=== PATIENT | female | born 1935 | race Caucasian/White ===

== ENCOUNTER 2017-08-20 14:22 | Emergency (ER) | payer MEDICARE, MEDICAID ==
[~2017-08-20] VITALS: Ht 154.9 cm; Wt 57.6 kg
[~2017-08-20 14:22] MED LIST: ASPIRIN 81MG TA81 MG PO; AUGMENTIN 875-1 EACH PO; CALCIUM 600600 MG PO; CIPRO 500MG TA500 MG PO; FLAGYL500 M1 PO; FUROSEMIDE 20MG20 MG PO; IPRATROPIUM BROM3 M1 IH; LEVOTHYROXINE0.1 M1 PO; OMEPRAZOLE20 MG PO; POTASSIUM CHLO10 ME4 PO; PREDNISONE 10MG10 MG PO; PROAIR HFA0.09 MG/AC IH; SENEXON-S1 TAB PO
--- NOTE | 2017-08-20 14:52 | Emergency Room Report ---
History of Present Illness Time Seen by MD Oquendo Presenting Problem in Triage Pt arrived:Walked Presenting Problem:PT C/O ABD CRAMPING THAT HAS BEEN GOING ON FOR A WHILE SINCE DX WITH DIVERTICULITIS. 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 N Clinical Suspician of Infection? N Mental Status: 1 - Regular (Normal Baseline) Sepsis Risk:Possible Sepsis Risk Have you (or family members/close friends) recently traveled outside the [place]? N If Yes, where/when: Have you had exposure to infectious disease within the past month? N TB? Other? Specify: Patient with hx GERD, states has a little bilious emesis each night when she lies down; has seen her GENERATING STATION MECHANIC at Dr. Velasquez and Dr. Blanco' office for this. Also has hx diverticulitis, and now in ED c/o cramping abdominal pain worse w/ ingestion of food; ate applesauce GOLF CART MECHANIC and kept it down but had cramping. No fever. Has lost about five or ten pounds recently due to cramping, per her daughter. No blood from above or below. No chest pain. No acute SOB. uses oxygen. ALLERGIES Coded Allergies: No Known Allergies (01/18/17) Home Medications Active Scripts Amoxicillin/Potassium Clav (Augmentin 875-125 Tablet) 1 EACH PO BID #14 TAB Prov: 05/10/17 Reported Medications Omeprazole (Omeprazole 20MG) 20 MG PO DAILY #30 CAP Potassium Chloride 10 MEQ PO DAILY #30 TAB SENNOSIDES/DOCUSATE SODIUM (Senexon-S Tablet) 1 TAB PO DAILY Furosemide (Furosemide) 20 MG PO BID ASPIRIN (Aspirin) 81 MG PO QHS ALBUTEROL-IPRATROPIUM (Iprat-Albut 0.5-3(2.5) MG/3 Ml) 3 ML IH Q4 Albuterol Sulfate (Proair Hfa) 1 PUFF IH Q6HP PRN COPD Prednisone (Prednisone 10MG) 10 MG PO BID Levothyroxine Sodium (Levothyroxine 0.1MG) 0.1 MG PO DAILY #30 History Medical History General CAD? No Angina: No NC: No Hypertension? No Hyperlipidemia? No CHF? No DVT? No PE? No COPD? Yes Asthma? No Anemia? No GERD? No Gastric ulcers? No GI Bleed? No Hernia? No Thyroid Problems? Yes Hypothyroidism? No CVA? No Seizures? No Diabetes? No Renal Insuffiency? No End Stage Renal Disease? No UTI? No Stones? No BPH? No GB Disease: No Nephritic Syndrome? No Asplenia? No Hepatitis? No Sickle Cell Disease? No Arthritis? Yes Migraines? No Cataracts? No Glaucoma? No MRSA? No HIV? No TB? No Anxiety? No Depression? No Cancer? Yes Site: CERVICAL More? Yes Additional hx: DIVERTICULITIS Immunization Hx DT/Tetanus Has Never Had Pneumonia Received In Past Surgical Hx Previous Surgery?Y HYSTERECTOMY CANCER CATARACTS Family History Family Hx Diabetes Yes CAD No Hypertension Yes Hyperlipidemia No Cancer Yes TB No Social History Smoking Hx Smoker: Former Smoker Tobacco: Yes Type Cigarettes Alcohol Alcohol: No Review of Systems All Other Systems Reviewed and Negative Constitutional see HPI Respiratory denies see HPI Gastrointestinal see HPI (last BM was this morning;dry) Physical Exam Vital Signs Vital Signs Date Time Temp Pulse Resp B/P Pulse O2 O2 Flow FiO2 Ox Delivery Rate 08/20 1556 90 22 132/77 95 4 08/20 1426 98.6 93 22 139/65 95 4 General Appearance normal appearance, WD/WN, no apparent distress Eye Exam - bilateral eye normal exam, bilateral eye PERRL, bilateral eye EOMI Neck normal inspection, non-tender, supple, full range of motion Respiratory Status Yes: trachea midline, chest symmetrical, non tender chest. No: respiratory distress, tender on palpation, use of accessory muscles, pain on inspiration, pain on expiration, productive cough, non productive cough. Lung Sounds bilateral: normal breath sounds, lungs clear, decreased breath sounds (on oxygen ). Cardiovascular normal exam, regular rate/rhythm, no peripheral edema, no gallop, no JVD, no murmur, no rub, normal peripheral pulses Gastrointestinal normal bowel sounds, normal exam, non tender, soft, no organomegaly, no pulsatile mass, no guarding, no rebound Extremities normal inspection, no calf tenderness Strength 5 Upper Ext (L), 5 Upper Ext (R), 5 Lower Ext (L), 5 Lower Ext (R) Neurologic alert, normal exam, no motor/sensory deficits, oriented x 3 ( ambulatory ;clear speech) Glascow Coma Scale Glascow Coma Scale Response Value EYE response: 4 Spontaneously 4 MOTOR response: 6 OBEYS 6 VERBAL response: 5 Oriented & Converses 5 Total 15 Skin intact, pallor Medical Decision Making LABS/Meds/Orders Pt receiving controlled substance in ED? No Results/Orders Laboratory Tests 08/20/17 1620: Urine Color YELLOW, Urine Appearance CLEAR, Urine pH 6.0, Ur Specific [place] 1.010, Urine Protein NEGATIVE, Urine Ketones NEGATIVE, Urine Blood 1+ H, Urine Nitrate NEGATIVE, Urine Bilirubin NEGATIVE, Urine Urobilinogen 0.2, Ur Leukocyte Esterase NEGATIVE, Urine Glucose NEGATIVE 08/20/17 1550: Sodium 137, Potassium 4.1, Chloride 101, Carbon Dioxide 32, BUN 16, Creatinine 0.9, Estimated Creat Clear 45 L, Estimated GFR (MDRD) 60, Glucose 121 H, Calcium 9.3, Total Bilirubin 0.2, AST 12 L, ALT 14, Alkaline Phosphatase 83, Total Protein 7.6, Albumin 3.2 L, Globulin 4.4 H, Albumin/Globulin Ratio 0.7 L, Lipase 69 L, WBC 11.3 H, RBC 4.18 L, Hgb 11.1 L, Hct 36.1 L, MCV 86.5, RDW 15.2, Plt Count 289, MPV 7.7, Gran % 86.8 H, Gran # 9.8 H, Total Counted Pending, Lymphocytes % 8.4 L, Monocytes % 4.0, Eosinophils % 0.6, Basophils % 0.2, Neutrophils Pending, Lymphocytes (Manual) Pending, Lymphocytes # 1.0, Monocytes # 0.5, Eosinophils # 0.1, Basophils # 0.0, Platelet Estimate Pending, PUBS MCHC 30.7 L, MCH 26.6 L Current Medication Orders Sig/Remington Start time Last Medication Dose Route Stop Time Status Admin Sodium Chloride 10 ML PRN PRN 08/20 1600 AC IV 08/21 1556 Dicyclomine HCl 0 .STK-MED ONE 08/20 1450 DC PO Dicyclomine HCl 10 MG ONCE ONE 08/20 1445 DC 08/20 PO 08/20 144 1516 Orders Procedure Date/time Status DIET-NOTHING BY MOUTH 08/20 D Active IV SALINE LOCK 08/20 1556 Active DIFFERENTIAL-WBC 08/[address] ABD/PELVIS REQ 08/20 1428 Complete URINALYSIS/COMPLETE 08/20 1428 Complete LIPASE 08/20 1428 Complete CBC WITH AUTO DIFF 08/20 142 Active CHEM 12 PROFILE 08/20 1428 Complete XRAY/CT/US XRAY/CT/US CT abdomen, pelvis CT interpretation by reviewed by me (report reviewed) Time results known: 160 CT Results abnormal, uncomplicated diverticulitis; distended gall bladder Departure Departure Time of Disposition 1700 Disposition DC Home or Self Care(routine) Clinical Impression Primary Impression: Diverticulitis large intestine Qualifiers: Diverticulitis bleeding: without bleeding Diverticulitis complication: without perforation or abscess Qualified Code: K57.32 - Diverticulitis of large intestine without perforation or abscess without bleeding Condition STABLE Referrals Francis SÁNCHEZ,Khurram (Family) Patient Instructions Diverticulitis Additional Instructions Your gall bladder is big and needs to be checked by your family practitioner when you can fast first and get an ultrasound outpatient. Rx Cipro and Bentyl. See Delores in one to two days. Discharge Counseling Counseled pt/family regarding diagnosis, test results, medications/RX, home care, follow up needs Prescriptions Current Visit Scripts DICYCLOMINE HCL (Bentyl) 10 MG PO Q8HP PRN cramping #6 CAP CIPROFLOXACIN HCL (Cipro 250MG TAB) 250 MG PO BID #14 TAB ED Critical Care Critical Care No at 1700
--- NOTE | 2017-08-20 15:48 | RADIOLOGY REPORT PS360 ---
CT ABD PELVIS W/O CONTRAST CLINICAL INDICATION: Epigastric pain with diffuse abdominal pain EPIGASTRIC PAIN, DIFFUSE ABD PAIN ORDERING PHYSICIAN: Ani Montero MD PATIENT AGE: 82 years COMPARISON: 05/18/2017 TECHNIQUE: Axial images obtained with sagittal and coronal reformats. PROCEDURE: Oral Contrast: None IV Contrast: None . FINDINGS: There are chronic changes in the lung bases with centrilobular emphysematous change. There are coronary artery calcifications The gallbladder is distended measuring up to 8.5 x 4.5 cm. The spleen, adrenal glands, and pancreas are unremarkable. There is a small hiatal hernia.. No renal calculi or hydronephrosis and no evidence of obstruction, free air, or appendicitis. There is diverticulosis of the descending and sigmoid colon with diffuse thickening of the junction of the descending and sigmoid colon in the left lower quadrant with stranding of the pericolic fat consistent with acute diverticulitis somewhat similar to the previous exam. No evidence of abscess or perforation. There has been prior hysterectomy. Small sclerotic focus is present in the acetabular roof on the right unchanged IMPRESSION: 1. Acute noncomplicated diverticulitis at the junction of the descending and sigmoid colon similar to 05/18/2017 2. Distended gallbladder
[2017-08-20 16:08] LABS: HEMOGLOBIN 11.1 g/dL (12.2-16.2); LYMPH % 8.4 % (10-50.0)
[2017-08-20] MEDS ORDERED: CIPRO 250MG TA250 MG PO (16:08)
[2017-08-20] MEDS ORDERED: BENTYL10 M1 PO (16:08)
[2017-08-20 16:37] LABS: URINE BILIRUBIN - DIPSTICK NEGATIVE (NEG); URINE BLOOD 1+ (NEG)
[2017-08-20 17:02] LABS: NEUTROPHILS 88 % (42-76)
[2017-08-20 17:11] VITALS: BP 130/88
== END 2017-08-20 17:12 | disposition home or self-care (01) ==
LOC: ER 14:22
PROVIDERS: Emergency Medicine
DX: K57.32 Diverticulitis of large intestine without perforation or abscess without bleeding (principal); J44.9 Chronic obstructive pulmonary disease, unspecified; Z87.891 Personal history of nicotine dependence; Z85.41 Personal history of malignant neoplasm of cervix uteri; Z79.82 Long term (current) use of aspirin; Z79.52 Long term (current) use of systemic steroids; Z79.899 Other long term (current) drug therapy

== ENCOUNTER 2017-08-26 08:49 | Emergency (ER) | payer MEDICARE, MEDICAID ==
[~2017-08-26] VITALS: Ht 154.9 cm; Wt 57.6 kg
[~2017-08-26 08:49] MED LIST changes: +BENTYL10 M1 PO; +CIPRO 250MG TA250 MG PO
--- NOTE | 2017-08-26 09:09 | Emergency Room Report ---
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 N Clinical Suspician of Infection? N Mental Status: 1 - Regular (Normal Baseline) Sepsis Risk:Low Sepsis Risk Have you (or family members/close friends) recently traveled outside the [place]? N If Yes, where/when: Have you had exposure to infectious disease within the past month? N TB? Other? Specify: Patient out of her inhaler for the past five days; unable to refill it despite refill from her SOFTWARE TOOLS ENGINEER. Has oxygen dependent COPD. Arrives wheezing and SOB. Also was in ED six days ago with chronically cramping abdominal pain, which was relieved with Bentyl. Rx Cipro for uncomplicated diverticulitis. CT scan showed distended GB but had taken PO prior to ED visit so referred to PCP for follow up. She has an appointment a half hour from now and states she has not had anything to eat or drink today. She did however move her bowels. No BRBPR. No hematemesis. Drank a little water this AM and kept it down. ALLERGIES Coded Allergies: No Known Allergies (01/18/17) Home Medications Active Scripts DICYCLOMINE HCL (Bentyl) 10 MG PO Q8HP PRN cramping #6 CAP Prov: 08/20/17 CIPROFLOXACIN HCL (Cipro 250MG TAB) 250 MG PO BID #14 TAB Prov: 08/20/17 Amoxicillin/Potassium Clav (Augmentin 875-125 Tablet) 1 EACH PO BID #14 TAB Prov: 05/10/17 Reported Medications Omeprazole (Omeprazole 20MG) 20 MG PO DAILY #30 CAP Potassium Chloride 10 MEQ PO DAILY #30 TAB SENNOSIDES/DOCUSATE SODIUM (Senexon-S Tablet) 1 TAB PO DAILY Furosemide (Furosemide) 20 MG PO BID ASPIRIN (Aspirin) 81 MG PO QHS ALBUTEROL-IPRATROPIUM (Iprat-Albut 0.5-3(2.5) MG/3 Ml) 3 ML IH Q4 Albuterol Sulfate (Proair Hfa) 1 PUFF IH Q6HP PRN COPD Prednisone (Prednisone 10MG) 10 MG PO BID Levothyroxine Sodium (Levothyroxine 0.1MG) 0.1 MG PO DAILY #30 History Medical History General CAD? No Angina: No PA: No Hypertension? No Hyperlipidemia? No CHF? No DVT? No PE? No COPD? Yes Asthma? No Anemia? No GERD? No Gastric ulcers? No GI Bleed? No Hernia? No Thyroid Problems? Yes Hypothyroidism? No CVA? No Seizures? No Diabetes? No Renal Insuffiency? No End Stage Renal Disease? No UTI? No Stones? No BPH? No GB Disease: No Nephritic Syndrome? No Asplenia? No Hepatitis? No Sickle Cell Disease? No Arthritis? Yes Migraines? No Cataracts? No Glaucoma? No MRSA? No HIV? No TB? No Anxiety? No Depression? No Cancer? Yes Site: CERVICAL More? Yes Additional hx: DIVERTICULITIS Immunization Hx DT/Tetanus Has Never Had Pneumonia Received In Past Surgical Hx Previous Surgery?Y HYSTERECTOMY CANCER CATARACTS Family History Family Hx Diabetes Yes CAD No Hypertension Yes Hyperlipidemia No Cancer Yes TB No Social History Smoking Hx Smoker: Former Smoker Tobacco: No Alcohol Alcohol: No Review of Systems All Other Systems Reviewed and Negative Respiratory see HPI Gastrointestinal see HPI, constipation, denies diarrhea, denies nausea, denies vomiting Physical Exam Vital Signs Vital Signs Date Time Temp Pulse Resp B/P Pulse O2 O2 Flow FiO2 Ox Delivery Rate 08/26 1031 16 08/26 1014 96 16 141/100 98 4 08/26 0857 98.7 89 16 149/106 98 4 General Appearance normal appearance, WD/WN, no apparent distress Eye Exam - bilateral eye normal exam, bilateral eye PERRL Neck normal inspection, non-tender, supple, full range of motion Respiratory Status Yes: respiratory distress, trachea midline, chest symmetrical, non tender chest. No: tender on palpation, use of accessory muscles, pain on inspiration, pain on expiration, productive cough, non productive cough (mild wheezing L greater than R). Lung Sounds left: wheezing. Cardiovascular normal exam, regular rate/rhythm, no peripheral edema, no gallop, no JVD, no murmur, no rub, normal peripheral pulses Gastrointestinal normal bowel sounds, normal exam, non tender, soft, no organomegaly, no pulsatile mass, no guarding, no rebound Extremities non-tender, normal range of motion, normal inspection, normal capillary refill, no calf tenderness, no pedal edema Strength 4 Upper Ext (L), 4 Upper Ext (R), 4 Lower Ext (L), 4 Lower Ext (R) Neurologic alert, normal exam, no motor/sensory deficits, oriented x 3 (nonfocal ;clear speech notremor) Glascow Coma Scale Glascow Coma Scale Response Value EYE response: 4 Spontaneously 4 MOTOR response: 6 OBEYS 6 Total 10 Skin intact, normal color, warm/dry, pallor Medical Decision Making LABS/Meds/Orders Pt receiving controlled substance in ED? No Results/Orders Laboratory Tests 08/26/17 1014: Urine Color YELLOW, Urine Appearance CLOUDY, Urine pH 6.0, Ur Specific [place] > = 1.030, Urine Protein TRACE H, Urine Ketones TRACE H, Urine Blood 1+ H, Urine Nitrate NEGATIVE, Urine Bilirubin NEGATIVE, Urine Urobilinogen 0.2, Ur Leukocyte Esterase NEGATIVE, Urine RBC 3-5, Urine WBC 5-10, Calcium Oxalate Crystal 1+, Urine Bacteria 4+, Urine Mucus 4+, Urine Glucose NEGATIVE 08/26/17 0910: Lipase 72 L 08/26/17 0910: Lactic Acid 0.8 08/26/17 0910: Sodium 143, Potassium 3.6, Chloride 103, Carbon Dioxide 32, BUN 18, Creatinine 0.9, Estimated Creat Clear 45 L, Estimated GFR (MDRD) 60, Glucose 107 H, Calcium 9.0, Total Bilirubin 0.2, AST 13 L, ALT 14, Alkaline Phosphatase 72, Total Protein 7.2, Albumin 2.9 L, Globulin 4.3 H, Albumin/Globulin Ratio 0.7 L, WBC 9.0, RBC 4.30, Hgb 11.6 L, Hct 37.5, MCV 87.1, RDW 15.2, Plt Count 302, MPV 7.7, Gran % 70.8, Gran # 6.3, Lymphocytes % 19.1, Monocytes % 6.9, Eosinophils % 3.0, Basophils % 0.2, Lymphocytes # 1.7, Monocytes # 0.6, Eosinophils # 0.3, Basophils # 0.0, PUBS MCHC 30.9 L, MCH 26.9 L Current Medication Orders Sig/Remington Start time Last Medication Dose Route Stop Time Status Admin Morphine Sulfate 2 MG ONCE ONE 08/26 1030 DC 08/26 IV 08/26 103 1031 Ondansetron HCl 4 MG ONCE ONE 08/26 1030 DC 08/26 IV 08/26 1031 1031 Morphine Sulfate 0 .STK-MED ONE 08/26 1029 DC .ROUTE Ondansetron HCl 0 .STK-MED ONE 08/26 1029 DC .ROUTE Sodium Chloride 10 ML PRN PRN 08/26 0915 AC IV 08/27 09 Albuterol/Ipratropium 3 ML ONCE ONE 08/26 09 DC 08/26 INH 08/26 901 09 Albuterol/Ipratropium 0 .STK-MED ONE 08/26 0858 DC INH Orders Procedure Date/time Status DIET-NOTHING BY MOUTH 08/26 L Active CULTURE, URINE 08/26 1014 Active URINALYSIS/COMPLETE 08/26 1006 Complete LIPASE 08/26 1006 Complete RT Aerosol Treatment, Provide 08/[address] ABD/PELVIS REQ 08/26 903 Active IV SALINE LOCK 08/26 903 Active CULTURE, BLOOD 08/26 903 Active LACTIC ACID 08/26 903 Complete CBC WITH AUTO DIFF 08/26 903 Complete CHEM 12 PROFILE 08/26 903 Complete US GALLBLADDER (ABD LTD) 08/26 901 Active RT REQUEST DUONEB 08/26 0855 Active XRAY/CT/US XRAY/CT/US XRAY chest XR interpretation by reviewed by me Xray Results abnormal, no acute changes from 05/18; 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 Consult MD Physician Consult Consult/PCP : go to office for refills and samples and he will schedule f/u SOFTWARE TOOLS ENGINEER Time Called 1107 Reason Pt. Condition Progress ED Progress Notes Date 08/26/17 Time 0908 Comment Sats 97 per cent s/p neb tx. Resting comfortably. Departure Departure Time of Disposition 1116 Disposition DC Home or Self Care(routine) Clinical Impression Primary Impression: Constipation Qualifiers: Constipation type: unspecified constipation type Qualified Code: K59.00 - Constipation, unspecified Secondary Impressions: Abdominal pain Qualifiers: Abdominal location: generalized Qualified Code: R10.84 - Generalized abdominal pain Gall bladder disease Mass of right lung Condition STABLE Referrals Jennifer Barber (PCP/Family) Patient Instructions Constipation Additional Instructions Go to Dr. Blanco' office and his staff will have samples and a refill for narcotics; they will set up a follow up appointment to see Rosalind; you will likely need further work up for right lung mass as well as your constipation as radiologist recommended follow up sigmoidoscopy to rule out a mass. Dr. Blanco will also address your constipation. Discharge Counseling Counseled pt/family regarding diagnosis, test results, medications/RX, home care, follow up needs ED Critical Care Critical Care No at 1120
--- OUTSIDE RECORDS SUMMARY | 2017-08-26 09:10 | External Medical Summary Rpt | CCD ---
Author Author , [facility] Organization [facility] Address Unknown Phone Care Team Providers Care Pest Locator Name Role Phone JONAS MCDANIEL Unavailable Unavailable AWOSIKA, AWOSIKA Unavailable Unavailable AWOSIKA, AWOSIKA Unavailable Unavailable SAM, SAM Unavailable Unavailable [facility] GAIL PIERRE BUCK, Unavailable Unavailable GAIL RBOWN, Unavailable Unavailable BACILIO SOMMERS Unavailable Unavailable MONICA TANG, Unavailable Unavailable MONICA OWENS JR, ANNITA Unavailable Unavailable RFIFI JR, ANNITA R GUTTI USH, GUTTI USH Unavailable Unavailable GUTTI, JACLYN R, GUTTI, Unavailable Unavailable JACLYN R ZHANE NICHOLS, Unavailable Unavailable ZHANE PHELAN, Unavailable Unavailable JONAS Gregorio, JONAS PHELAN JASON A, Unavailable Unavailable [facility] Unavailable Unavailable [facility], [facility] BARRINGTON ZAK, BARRINGTON ZAK Unavailable Unavailable [facility], Unavailable Unavailable [facility] PITER LOZADA Unavailable Unavailable [facility], [facility] Unavailable Unavailable [facility], [facility], Unavailable Unavailable [facility] & Unavailable Unavailable [facility] & Unavailable Unavailable [facility] JERRY EDWARDS Unavailable Unavailable [facility] Un[facility]ORY, [facility], Unavailable Unavailable [facility], Unavailable Unavailable [facility] Unavailable Unavailable SERVICES, [facility] Unavailable Unavailable AMBULANCE, [facility] Unavailable Unavailable AMBULANCE, [facility] Unavailable Unavailable [facility]OC[facility]AT, [facility] Unavailable Unavailable HOSPITALIST, [facility] Unavailable Unavailable MEDICAL, [facility] Unavailable Unavailable MEDICAL, [facility] JAVIER FOSS Unavailable Unavailable [facility] Unavailable Unavailable [facility], [facility] Unavailable Unavailable LLC, [facility] PAT, Unavailable Unavailable [facility], PARRISH S, Unavailable Unavailable [facility], PARRISH S PORNOY ROBERT, PORNOY Unavailable Unavailable ROBERT HARRISON PATITO G, Unavailable Unavailable [facility], Unavailable Unavailable [facility] Unavailable Unavailable [facility]AT, [facility] Unavailable Unavailable INC[facility]PORAT, [facility] Unavailable Unavailable SERVICES, [facility] Unavailable Unavailable SERVICES, [facility] COLTON CALLES, Unavailable Unavailable COLTON CALLES ROBERT B, Unavailable Unavailable ESTELA YO [facility] Unavailable Unavailable EMERGENCY PHYS, [facility] MCGUIRE KER, MCGUIRE KER Unavailable Unavailable [facility], Unavailable Unavailable [facility] Unavailable Unavailable #[id number], [facility] #[id number] CHARLES GUTIERREZ, Unavailable Unavailable CHARELS OLIVAS, KYRA Unavailable Unavailable DEISY Purpose Continuity of Care Document - 12-02-2007 through 2016 Problems Code Diagnosis DOS Provider Status J3489 OTHER 04-06-2017 [facility] SPECIFIED PHYSICIAN DISORDERS PRACTICE L NOSE AND NASAL SINUSES Z9981 DEPENDENCE 04-06-2017 [facility] ON PHYSICIAN SUPPLEMENTA PRACTICE L L OXYGEN 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 [facility] SIS UNS W/O REGIONAL THYROTOXIC MEDICAL CRISIS/STOR M W50306 COMBINED 02-09-2017 [facility] FORMS OF REGIONAL AGE-RELATED MEDICAL CATARACT RIGHT EYE H269 UNSPECIFIED 02-09-2017 [facility] CATARACT [facility] MEDICAL J449 CHRONIC 02-09-2017 [facility] OBSTRUCTIVE REGIONAL PULMONARY MEDICAL DISEASE UNS K219 GASTRO-ESOP 02-09-2017 [facility] H REFLUX REGIONAL DISEASE MEDICAL WITHOUT ESOPHAGITIS B07320 DERMATOCHAL 01-26-2017 [facility] ASIS OF UNS REGIONAL EYE UNS MEDICAL EYELID U64181 COMBINED 01-26-2017 [place] [facility] CATARACT LEFT EYE U15804 COMBINED 01-26-2017 [facility] FORMS OF REGIONAL AGE-RELATED MEDICAL CATARACT BILATERAL H538 OTHER 01-26-2017 [facility] VISUAL REGIONAL DISTURBANCE MEDICAL S J00 ACUTE 01-22-2017 [facility] NASOPHARYNG PHYSICIANS ITIS COMMON GROUP COLD J310 CHRONIC 01-22-2017 [facility] RHINITIS PHYSICIANS GROUP J342 DEVIATED 01-22-2017 [facility] NASAL PHYSICIANS SEPTUM GROUP R22828 PERSONAL 01-18-2017 [facility] NICOTINE INC DEPENDENCE [id number] NONEXUDAT 12-16-2016 [facility] AGE-REL MAC DEGEN RUFUS EARLY DRY STAGE J984 OTHER 11-13-2016 [facility] DISORDERS [facility] OF LUNG INC R0989 OTH SPEC SX 11-13-2016 [facility] SIGNS [facility] INVLV THE INC CIRC & RESP SYS R938 ABNORMAL 11-13-2016 [facility] FIND ON DX [facility] IMAGING OTH INC SPEC BODY STRCT R05 COUGH 11-05-2016 [facility] INC R502 DRUG 11-05-2016 [facility] INDUCED [facility] FEVER INC J9610 CHRONIC 12-17-2015 [facility], RESPIRATORY INC FAIL UNS HYPOXIA/HYP ERCAPNIA J9611 CHRONIC 12-14-2015 [facility] FAILURE [facility]ALTH CTR WITH HYPOXIA R5381 OTHER 12-11-2015 [facility] R609 EDEMA 12-11-2015 [facility] UNSPECIFIED N EMERGENCY PHYS Z6825 BODY MASS 12-11-2015 [facility] INDEX BMI REGIONAL 25.0-25.9 MEDICAL ADULT Z7982 DETENTION 12-11-2015 [facility] CURRENT USE REGIONAL OF [place] MEDICAL M52067 PERSONAL 12-11-2015 [facility] HISTORY OF REGIONAL URINARY MEDICAL TRACT INFECTIONS E039 HYPOTHYROID 11-30-2015 [facility]M [facility] UNSPECIFIED HEALTH CTR D229 MELANOCYTIC 11-16-2015 [facility]EVI [facility] UNSPECIFIED HEALTH CTR L8990 PRESSURE 11-16-2015 [facility] UNS FAMILY SITE HEALTH CTR UNSPECIFIED STAGE J441 CHRONIC 10-09-2015 [facility] OBSTRUCTIVE FAMILY PULMONARY HEALTH CTR DZ W/EXACERBAT ION L989 DISORDER 10-05-2015 [facility] & [facility] CTR S TISSUE UNS J9600 ACUTE 08-11-2015 [facility] RESPIRATORY HOSPITALIST FAIL UNS HYPOXIA/HYP ERCAPNIA J9690 RESP FAIL 08-07-2015 [facility] UNS UNS N EMERGENCY WHETHER PHYS W/HYPOXIA/H YPERCAPNIA R0602 SHORTNESS 08-07-2015 [facility] OF BREATH [facility] R079 CHEST PAIN 08-07-2015 [facility] R0902 HYPOXEMIA 08-07-2015 [facility] N EMERGENCY PHYS N390 URINARY 08-04-2015 [facility] TRACT N EMERGENCY INFECTION PHYS SITE NOT SPECIFIED Z720 TOBACCO USE 08-04-2015 [facility] MEDICAL Z8541 PERSONAL 08-04-2015 [facility] MALIGNANT MEDICAL NEOPLASM CERVIX UTERI 5950 ACUTE 08-01-2015 [facility]STITIS [facility] 5990 URINARY 07-29-2015 [facility]FECTION PHYS SITE NOT SPECIFIED 7881 DYSURIA 07-29-2015 [facility] 496 CHRONIC 07-25-2015 [facility] OBSTRUCTION SERVICES NEC 2449 UNSPECIFIED 02-06-2015 [facility] HYPOTHYROID INCORPORAT ISM 2689 UNSPECIFIED 02-06-2015 [facility] VIT[facility] DEFICIENCY INCORPORAT 2724 OTHER AND 02-06-2015 [facility]PEC[facility]IED [facility] INCORPORAT HYPERLIPIDE DAMION 2859 UNSPECIFIED 02-06-2015 [facility]EMIA [facility] INCORPORAT 3899 UNSPECIFIED 02-06-2015 [facility] LOSS INCORPORAT 10015 OBSTRUCTIVE 02-06-2015 [facility] BRONCHITIS INCORPORAT WITHOUT EXACERBAT 16967 UNSPECIFIED 02-06-2015 [facility] DISTURBANCE INCORPORAT 04530 OTHER 02-06-2015 [facility] FATIGUE INCORPORAT 4878 INFLUENZA 10-19-2014 [facility] WITH OTHER PRIMARY MANIFESTATI CARE CENTER ONS 4618 OTHER ACUTE 07-10-2014 [facility] SINUSITIS [facility]IMARY [facility]ARE CENTER V5869 LONG-TERM 07-06-2014 [facility] (CURRENT) PRIMARY USE OF CARE CENTER OTHER MEDICATIONS 04458 OBSTRUCTIVE 05-30-2013 [facility] CHRONIC EMERGENCY BRONCHITIS SERVICES WITH EXACERBATIO N 12401 CHEST PAIN 05-30-2013 [facility]NSPECIFIED [facility]Y [facility]OCIAT 29642 OTHER 05-30-2013 [facility] NONSPECIFIC RADIOLOGY ABNORMAL ASSOCIAT FINDING OF LUNG FIELD 4928 OTHER [facility] 07947 OTHER 05-24-2013 [facility] RESPIRATORY ABNORMALITI ES 7867 ABNORMAL 05-23-2013 [facility]ST [facility] 515 POSTINFLAMM 03-22-2013 [facility] ATORY [facility] PULMONARY ASSOCIAT FIBROSIS 05778 OTHER 03-22-2013 [facility] DISEASES OF RADIOLOGY LUNG NOT ASSOCIAT ELSEWHERE CLASSIFIED 7862 COUGH 03-21-2013 [facility] 4660 ACUTE 10-15-2012 [facility] BRONCHITIS [facility]ARE CENTER 486 PNEUMONIA, 07-14-2012 [facility] ORGANISM REGIONAL UNSPECIFIED MEDICAL 5180 PULMONARY 07-14-2012 [facility] COLL[facility]SE [facility] V0481 NEED 08-04-2011 [facility] PROPHYLACTI PRIMARY C CARE CENTER VACCINATION &INOCULATIO N FLU 2809 UNSPECIFIED 03-04-2011 LABORATORY IRON & DEFICIENCY [facility] ICS 4619 ACUTE 07-19-2010 NEW S[facility]ITIS, [facility] 4779 ALLERGIC 07-19-2010 NEW RHINITIS [facility] UNSPECIFIED 19849 ARTHRALGIA 03-06-2010 [facility] IBULAR JOINT 4659 ACUTE URIS 06-29-2009 [facility] OF PRIMARY UNSPECIFIED CARE SITE CENTERINC 490 BRONCHITIS 04-28-2009 [facility] NOT EMERGENCY SPECIFIED SERVICES ACUTE OR ASSOCIATES CHRONIC 5199 UNSPECIFIED 04-28-2009 [facility] DISEASE OF RADIOLOGY ASSOCIATES RESPIRATORY PSC SYSTEM 29009 PRIMARY LOC 12-20-2008 [facility] PRIMARY OSTEOARTHRO CARE SIS PELVIC CENTERINC REGION&THIG H [address] PAIN IN 12-20-2008 [facility] [place] [facility] P[facility]VIC INC REGION AND THIGH 2720 PURE 12-02-2007 [facility] HYPERCHOLES PRIMARY TEROLEMIA CARE CENTERINC 70258 PNEUMONIA 12-02-2007 [facility] DUE TO PRIMARY UNSPECIFIED CARE CENTERINC STREPTOCOCC [place] 7931 NONSPEC 12-02-2007 [facility] [place] [facility] O[facility] EXAM INC BODY STRUCT LUNG FIELD Immunization Name Date Rout CVX Reac Dose Comm Prov Is Faci e tion ent ider Refu lity Give sed n IIV3 09-1 141 [facility] No NEW 7-20 I NORA VACC 10 [facility] NGTO INE N SPLI CLIN T IC VIRU PSC S 0.5 ML DOSA GE IM USE Results Labs Lab Lab Date Result Refere Interp Status Commen Order Detail nces retati t Range on Urinalysis with microscopy (08-20-2017 16:20) Urine = OCC O complet leukocy 017 wbc/hpf ed sydni 16:20 count (number /volume ) Urine 0.2 0.2 NEG complet urobili 017 L ed nogen 16:20 E.U./dL detecti on by test str Squamou 5-10 0-5 complet s 017 5-10 L ed epithel 16:20 #/hpf ial cells detecti on in u Urine = 1.010 1.005-1 complet specifi 017 .030 ed c 16:20 gravity measure ment Erythro OCC OCC 0 complet cytes 017 L ed detecti 16:20 rbc/hpf on in urine sedimen t Urine = NEG complet protein 017 NEGATIV ed 16:20 E mg/dL measure ment by automat ed t Urine = 6.0 5.0-8.5 complet pH 017 ed 16:20 Urine NEGATIV NEG complet nitrite 017 E ed 16:20 NEGATIV detecti E L on by test strip Mucus 1+ 1+ L OCC complet detecti 017 ed on in 16:20 urine sedimen t by lig Mucus NEGATIV NEG complet detecti 017 E ed on in 16:20 NEGATIV urine E L sedimen t by lig Urine NEGATIV NEG complet ketones 017 E ed 16:20 NEGATIV detecti E L on by mg/dL automat ed sydni Hyaline 10-20 NONE complet casts 017 10-20 L ed detecti 16:20 #/lpf on in urine sedimen Glucose = NEG complet ur 017 NEGATIV ed test 16:20 E strip Urine YELLOW YELLOW complet color 017 YELLOW ed 16:20 L Urine 1+ 1+ L NEG complet blood 017 ed detecti 16:20 on Urine NEGATIV NEG complet total 017 E ed bilirub 16:20 NEGATIV in E L detecti on by test Bacteri 1+ 1+ L O complet a 017 ed detecti 16:20 on in urine sedimen t by Urine CLEAR CLEAR complet appeara 017 CLEAR L ed nce 16:20 determi nation Urinalysis dipstick W Reflex Microscopic panel in Urine (08-20-2017 16:20) Bacteri 08-20- 1+ O complet a 017 ed [Presen 16:20 ce] in Urine sedimen t by Light microsc opy Hyaline 08-20- 10-20 NONE complet casts 017 ed [Presen 16:20 ce] in Urine sedimen t by Light microsc opy Mucus 08-20-2 1+ OCC complet [Presen 017 ed ce] in 16:20 Urine sedimen t by Light microsc opy Erythro 08-20-2 OCC 0 complet cytes 017 ed [Presen 16:20 ce] in Urine sedimen t by Light microsc opy Epithel 08-20- 5-10 0#/hp complet ial 017 f - ed cells.s 16:20 5#/hp quamous f [Presen ce] in Urine sedimen t by Microsc opy high power field Urinalysis dipstick W Reflex Microscopic panel in Urine (08-20-2017 16:20) Appeara 08-20-2 CLEAR CLEAR complet nce of 017 ed Urine 16:20 Bilirub NEGATIV NEG complet in 017 E ed [Presen 16:20 ce] in Urine by Test strip Erythro 1+ NEG Abnorma complet cytes 017 l ed [Presen 16:20 ce] in Urine Color 08-20- YELLOW YELLOW complet of 017 ed Urine 16:20 Ketones NEGATIV NEG complet 017 E ed [Presen 16:20 ce] in Urine by Automat ed test strip Mucus 08-20-2 NEGATIV NEG complet [Presen 017 E ed ce] in 16:20 Urine sedimen t by Light microsc opy Nitrite 08-20- NEGATIV NEG complet 017 E ed [Presen 16:20 ce] in Urine by Test strip Urobili 08-20-2 0.2 NEG complet nogen 017 ed [Presen 16:20 ce] in Urine by Test strip Differential panel, method unspecified - (08-20-2017 15:50) Blood = 100 complet total 017 #CELLS ed cell 15:50 count Neutrop 10-19-2 = 88 % 42-76 complet hil 017 ed count 15:50 Platele 2 NORMAL complet t 017 NORMAL ed estimat 15:50 L e Monocyt = 7 % 2-9 complet e % 017 ed 15:50 Manual = 1 % 0-1 complet blood 017 ed metamye 15:50 locytes /100 leukocy t LYMPH 08-20-2 4 % 10-50 complet 017 ed 15:50 Hypochr 1+ 1+ L complet omatic 017 ed red 15:50 blood cell detecti on CBC w auto diff (08-20-2017 15:50) Blood = 11.3 4.8-10. complet leukocy 017 K/MM3 8 ed sydni 15:50 count (number /volume ) Automat = 15.2 11.5-17 complet ed 017 % .5 ed erythro 15:50 cyte distrib ution width Red = 4.18 4.2-5.4 complet blood 017 M/mm3 ed cell 15:50 count Blood = 289 142-424 complet platele 017 K/mm3 ed t count 15:50 Automat = 7.7 7.4-10. complet ed 017 fl 4 ed blood 15:50 platele t mean volume [place] % = 4.0 % 1.7-9.3 complet 017 ed 15:50 Absolut = 0.5 0.1-1.0 complet e 017 K/mm3 ed monocyt 15:50 e count Automat = 86.5 82.2-97 complet ed 017 fl .8 ed erythro 15:50 cyte mean corpusc ular v Automat = 30.7 31.8-35 complet ed 017 g/dl .4 ed erythro 15:50 cyte mean corpusc ular h Mean = 26.6 27-31.2 complet corpusc 017 pg ed ular 15:50 hemoglo bin (MCH) determ Lymphoc = 8.4 % 10-50.0 complet yte 017 ed count, 15:50 blood, automat ed Absolut = 1.0 0.7-4.5 complet e 017 K/mm3 ed lymphoc 15:50 yte count Blood = 11.1 12.2-16 complet hemoglo 017 g/dL .2 ed bin 15:50 measure ment (mass/v olum Blood = 36.1 37.0-47 complet hematoc 017 % .0 ed rit 15:50 (volume fractio n) Granulo = 86.8 37.0-80 complet cyte 017 % .0 ed percent 15:50 age Blood = 9.8 1.8-7.8 complet granulo 017 K/mm3 ed cytes 15:50 automat ed count (numb Automat = 0.6 % 0.1-12. complet ed 017 0 ed blood 15:50 eosinop hils/10 0 leukocy t Automat = 0.1 0.0-0.4 complet ed 017 K/mm3 ed blood 15:50 eosinop hil count Baso % = 0.2 % 0.1-2.0 complet 017 ed 15:50 Automat = 0.0 0-0.2 complet ed 017 K/MM3 ed blood 15:50 basophi l count (count/ vo Lipase measurement (08-20-2017 15:50) Lipase = 69 73-393 complet measure 017 U/L ed ment 15:50 Comprehensive metabolic panel (08-20-2017 15:50) Serum = 101 98-107 complet or 017 mmoL/L ed plasma 15:50 chlorid e measure ment (mo Serum = 9.3 8.5-10. complet or 017 mg/dL 1 ed plasma 15:50 calcium measure ment (mas Serum = 16 7-18 complet or 017 mg/dL ed plasma 15:50 urea nitroge n measure men Serum = 0.2 0.2-1.0 complet or 017 mg/dL ed plasma 15:50 total bilirub in measure m Serum = 83 46-116 complet or 017 U/L ed plasma 15:50 alkalin e phospha tase payton Serum = 3.2 3.4-5.0 complet or 017 gm/dL ed plasma 15:50 albumin measure ment (mas Serum = 0.7 1.1-1.8 complet or 017 ed plasma 15:50 albumin /globul in mass ra Protein = 7.6 6.4-8.2 complet total 017 gm/dL ed ser/tye 15:50 s ALT = 14 12-78 complet (SGPT) 017 U/L ed ser/tye 15:50 s Serum = 12 15-37 complet or 017 U/L ed plasma 15:50 asparta te aminotr ansfera Serum = 137 136-145 complet sodium 017 mmoL/L ed measure 15:50 ment Serum = 4.1 3.5-5.1 complet potassi 017 mmoL/L ed um 15:50 measure ment Serum = 121 74-106 complet or 017 mg/dL ed plasma 15:50 glucose measure ment (mas Serum = 4.4 1.3-3.2 complet globuli 017 gm/dL ed n 15:50 measure ment (mass/v olume) Estimat = 60 59- complet ed 017 ML/MIN ed glomeru 15:50 lar filtrat ion rate (GF Comment: REFERENCE RANGE: >60 ML/MIN/1.73 SQUARE METERS Comment: If this patient is -Peruvian, then multiply the Comment: result by 1.210. Estimat = 45 50-200 complet ion of 017 ML/MIN ed creatin 15:50 ine renal clearan ce Serum = 0.9 0.55-1. complet or 017 mg/dL 02 ed plasma 15:50 creatin ine measure ment ( Carbon = 32 21.0-32 complet dioxide 017 mmoL/L .0 ed 15:50 measure ment Differential panel, method unspecified - (08-20-2017 15:50) Hypochr 1+ complet omia 017 ed [Presen 15:50 ce] in Blood LYMPH 4 % 10% - Low complet 017 50% ed 15:50 Platele NORMAL complet ts 017 ed [Presen 15:50 ce] in Blood by Light microsc opy Differential panel, method unspecified - (05-08-2017 12:28) LYMPH 8 % 10% - Low complet 017 50% ed 12:28 Platele NORMAL complet ts 017 ed [Presen 12:28 ce] in Blood by Light microsc opy Urinalysis dipstick W Reflex Microscopic panel in Urine (04-12-2017 12:40) Appeara SL CLEAR complet nce of 017 CLOUDY ed Urine 12:40 Bacteri 4+ O complet a 017 ed [Presen 12:40 ce] in Urine sedimen t by Light microsc opy Bilirub NEGATIV NEG complet in 017 E ed [Presen 12:40 ce] in Urine by Test strip Erythro 2+ NEG Abnorma complet cytes 017 l ed [Presen 12:40 ce] in Urine Color DK YELLOW complet of 017 YELLOW ed Urine 12:40 Ketones TRACE NEG Abnorma complet 017 l ed [Presen 12:40 ce] in Urine by Automat ed test strip Mucus TRACE NEG Abnorma complet [Presen 017 l ed ce] in 12:40 Urine sedimen t by Light microsc opy Mucus 4+ OCC complet [Presen 017 ed ce] in 12:40 Urine sedimen t by Light microsc opy Nitrite NEGATIV NEG complet 017 E ed [Presen 12:40 ce] in Urine by Test strip Erythro 3-5 0 complet cytes 017 ed [Presen 12:40 ce] in Urine sedimen t by Light microsc opy Epithel 3-5 0#/hp complet ial 017 f - ed cells.s 12:40 5#/hp quamous f [Presen ce] in Urine sedimen t by Microsc opy high power field Urobili 0.2 NEG complet nogen 017 ed [Presen 12:40 ce] in Urine by Test strip Leukocy 3-5 O complet sydni 017 wbc/hpf ed [#/volu 12:40 me] in Urine Differential panel, method unspecified - (04-12-2017 11:25) LYMPH 5 % 10% - Low complet 017 50% ed 11:25 Platele NORMAL complet ts 017 ed [Presen 11:25 ce] in Blood by Light microsc opy Procedures Procedure DOS Code Location Performer Comment INJECTION J1580 [facility] 7 W W GARAMYCIN REGIONAL REGIONAL MEDICAL MEDICAL GENTAMICI N UP TO 80 MG INJECTION J2001 [facility] 7 W W LIDOCAINE REGIONAL REGIONAL HCL MEDICAL MEDICAL INTRAVENO US INFUS 10 MG INJECTION J2795 [facility] 7 W W ROPIVACAI REGIONAL REGIONAL NE MEDICAL MEDICAL HYDROCHLO RIDE 1 MG INJECTION J3370 [facility] 7 W W VANCOMYCI REGIONAL REGIONAL N HCL 500 MEDICAL MEDICAL MG CATARACT 36913 [facility] REMOVAL 7 W W INSERTION REGIONAL REGIONAL OF LENS MEDICAL MEDICAL OPH [place] [address] [place] [address] [facility]SCAN IO LENS PWR KENISHA INJECTION J3370 [facility] 7 W W VANCOMYCI REGIONAL REGIONAL N HCL 500 MEDICAL MEDICAL MG CATARACT 30955 [facility] REMOVAL 7 W W INSERTION REGIONAL REGIONAL OF LENS MEDICAL MEDICAL INJECTION J2795 [facility] 7 W W ROPIVACAI REGIONAL REGIONAL NE MEDICAL MEDICAL HYDROCHLO RIDE 1 MG INJECTION J2001 [facility] 7 W W LIDOCAINE REGIONAL REGIONAL HCL MEDICAL MEDICAL INTRAVENO US INFUS 10 MG INJECTION J1580 [facility] 7 W W GARAMYCIN REGIONAL REGIONAL MEDICAL MEDICAL GENTAMICI N UP TO 80 MG OPHTH 70408 [facility] MEDICAL 7 XM&EVAL COMPRE NEW PT 1/> VST FUNDUS 08700 [facility] PHOTOGRAP 7 HY W/INTERPR ETATION & REPORT CT THORAX 23578 [facility] W/O 7 [facility] CONTRAST INC INC MATERIAL RADIOLOGI 01-04-201 36868 [facility] C EXAM 7 [facility] CHEST 2 INC INC VIEWS FRONTAL&L ATERAL O2 CONC 1 E1390 PREETI, PREETI, DEL PORT 6 INC INC 85%/>02 CONC AT PRS FLW RATE ALBUTEROL J7620 [facility] TO 2.5 6 PHARMACY PHARMACY MG & SERVICES SERVICES IPRATROPI UM BROM TO 0.5 MG PHRM Q0513 [facility] RELIANT DISPENSIN 6 PHARMACY PHARMACY G FEE SERVICES SERVICES INHALATIO N RX; PER 30 DAYS HOME E0466 [facility] 6 INC INC R ANY TYPE USED W/NON-INV ASV INTF FEDERALLY G0467 [facility] 6 [facility] CTR CTR CENTER V[place] BASIC [address] [facility] METABOLIC 6 [facility]EDAD [facility]EDAD PANEL HOLDINGS HOLDINGS CALCIUM TOTAL PRTBLE E0431 [facility] GASE[facility] 6 INC INC O2 SYS RENT; FLWMTR HUMIDFR&M ASK NATRIURET 78901 [facility] IC 6 W W PEPTIDE [place] [address] [facility] TROPONIN 6 W W QUANTITAT REGIONAL REGIONAL ANGELIA MEDICAL MEDICAL BLOOD 71674 [facility] COUNT 6 W W COMPLETE REGIONAL REGIONAL AUTO&AUTO MEDICAL MEDICAL DIFRNTL WBC ECG 12257 [facility] ROUTINE 6 IDALIA ECG EMERGENCY W/LEAST PHYS 12 LDS I&R ONLY BASIC 49470 [facility] METABOLIC 6 W W PANEL REGIONAL REGIONAL CALCIUM MEDICAL MEDICAL TOTAL RADIOLOGI 63002 [facility] B[facility] 6 [facility] CHEST 2 RADIOLOGY VIEWS ASSOCIAT FRONTAL&L ATERAL ECG 62815 [facility] ROUTINE 6 W W ECG REGIONAL REGIONAL W/LEAST MEDICAL MEDICAL 12 LDS TRCG ONLY W/O I&R CREATINE 31165 [facility]VIE KINASE 6 W W TOTAL REGIONAL REGIONAL MEDICAL MEDICAL ALBUTEROL J7620 RELIANT RELIANT TO 2.5 6 PHARMACY PHARMACY MG & SERVICES SERVICES IPRATROPI UM BROM TO 0.5 MG ADMN SET [id number] [facility] VOL 6 INC INC NONFILTR PNEUMAT NEBULIZR DISPBL PHRM Q0513 RELIANT RELIANT DISPENSIN 6 PHARMACY PHARMACY G FEE SERVICES SERVICES INHALATIO N RX; PER 30 DAYS FEDERALLY G0467 ANNA CO ANNA CO 6 [facility] CTR [place] [address] [facility] THYROID 6 [facility] PIED[facility] STIMULATI HOLDINGS HOLDINGS NG HORMONE TSH CUL BACT 31110 [facility] XCPT 6 [facility] B[facility]OD/STO OL AEROBIC ISOL FEDERALLY G0467 ANNA CO ANNA CO 6 [facility] CTR CTR CENTER VISIT ESTAB PT PRSSURE E0464 [facility], SUPP VENT 6 INC INC W/VOL CNTRL NONINVASV INTERFCE PRTBLE E0431 [facility], GASEOUS 6 INC INC O2 SYS RENT; FLWMTR HUMIDFR&M ASK PRSSURE E0464 [facility], SUPP VENT 5 INC INC W/VOL CNTRL NONINVASV INTERFCE PHRM Q0513 RELIANT RELIANT DISPENSIN 5 PHARMACY PHARMACY G FEE SERVICES SERVICES INHALATIO N RX; PER 30 DAYS ALBUTEROL J7620 RELIANT RELIANT TO 2.5 5 PHARMACY PHARMACY MG & SERVICES SERVICES IPRATROPI UM BROM TO 0.5 MG PRTBLE E0431 [facility], GASEOUS 5 INC INC O2 SYS RENT; FLWMTR HUMIDFR&M ASK PORTABLE E0443 [facility], O2 5 INC INC CONTENTS GASEOUS 1 MO SUPPLY=1 UNIT FEDERALLY G0467 ANNA CO ANNA CO 5 [facility] CTR CTR CENTER VISIT ESTAB PT FEDERALLY G0467 ANNA CO ANNA CO 5 [facility] [place] [address] [facility] THYROID 5 PIEDAD PIEDAD STIMULATI HOLDINGS HOLDINGS NG HORMONE TSH PRSSURE E0464 [facility], SUPP VENT 5 INC INC W/VOL CNTRL NONINVASV INTERFCE PRTBLE E0431 [facility] CENTER, GASEOUS 5 INC INC O2 SYS RENT; FLWMTR HUMIDFR&M ASK PORTABLE E0443 [facility], O2 5 INC INC CONTENTS GASEOUS 1 MO SUPPLY=1 UNIT PRSSURE E0464 [facility], SUPP VENT 5 INC INC W/VOL CNTRL NONINVASV INTERFCE HOS BED E0260 [facility], SEMI-ELEC 5 INC INC W/ANY TYPE SIDE RAIL W/MATTRSS COMMODE E0163 [facility], CHAIR 5 INC INC MOBILE OR STATIONAR Y W/FIXED ARMS PRTBLE E0431 [facility], GASEOUS 5 INC INC O2 SYS RENT; FLWMTR HUMIDFR&M ASK SBSQ 64330 [facility] [address] MAR CARE/DAY HOSPITALI 25 ST MINUTES SBSQ 63348 [facility] [address] MAR CARE/DAY [facility] [address] MINUTES SBSQ 47671 [facility] [address] MAR CARE/DAY [facility] [address] MINUTES INITIAL 25974 [facility] [address] MAR CARE/DAY [facility]PITAL[facility] [address] MINUTES GROUND A0425 [facility] MILEAGE 5 MINESH CO MINESH CO PER STATUTE AMBULANCE AMBULANCE MILE AMB A0427 [facility] SERVICE 5 MINESH CO MINESH CO ALS EMERGENCY AMBULANCE AMBULANCE TRANSPORT LEVEL 1 ECG 82063 [facility] ROUTINE 5 IDALIA DEISY ECG EMERGENCY W/LEAST PHYS 12 LDS I&R ONLY RADIOLOGI [id number] RADIOLOGY ON CHEST ASSOCIAT [facility] 46368 [facility] 5 W [facility] T 30 MIN/< SBSQ 91183 [facility] 5 W [facility] CARE/DAY HOSPITALI [address] MINUTES INITIAL 37569 [facility] 5 W [facility] CARE/DAY HOSPITALI [address] MINUTES RADIOLOGI 56794 [facility] C 5 EIDER MAGDALENA EXAMINATI RADIOLOGY ON CHEST ASSOCIAT [place] FRONTAL FEDERALLY [id number] ANNA CO ANNA CO 5 [facility] CENTER VISIT ESTAB PT PHRM Q0513 RELIANT RELIANT DISPENSIN 5 PHARMACY PHARMACY G FEE SERVICES SERVICES INHALATIO N RX; PER 30 DAYS ADMN SET A7003 PREETI ÁLVAREZ, VOL 5 INC INC NONFILTR PNEUMAT NEBULIZR DISPBL ALBUTEROL J7620 RELIANT RELIANT TO 2.5 5 PHARMACY PHARMACY MG & SERVICES SERVICES IPRATROPI UM BROM TO 0.5 MG ALBUTEROL J7620 RELIANT RELIANT TO 2.5 5 PHARMACY PHARMACY MG & SERVICES SERVICES IPRATROPI UM BROM TO 0.5 MG PHRM Q0513 RELIANT RELIANT DISPENSIN 5 PHARMACY PHARMACY G FEE SERVICES SERVICES INHALATIO N RX; PER 30 DAYS PHRM Q0513 RELIANT RELIANT DISPENSIN 5 PHARMACY PHARMACY G FEE SERVICES SERVICES INHALATIO N RX; PER 30 DAYS ADMN SET A7005 PREETI ÁLVAREZ, W/ VOL 5 INC INC NONFILTR NEBULIZR NON-DISPB L ALBUTEROL J7620 RELIANT RELIANT TO 2.5 5 PHARMACY PHARMACY MG & SERVICES SERVICES IPRATROPI UM BROM TO 0.5 MG O2 CONC 1 E1390 PREETI ÁLVAREZ [facility] PORT 5 INC INC 85%/>02 CONC AT [facility] FLW RATE ALBUTEROL J7620 RELIANT RELIANT TO 2.5 5 PHARMACY PHARMACY MG & SERVICES SERVICES IPRATROPI UM BROM TO 0.5 MG PHRM Q0513 RELIANT RELIANT DISPENSIN 5 PHARMACY PHARMACY G FEE SERVICES SERVICES INHALATIO N RX; PER 30 DAYS O2 CONC 1 05-18-201 E1390 [facility] 5 INC INC 85%/>02 CONC AT PRS FLW RATE ALBUTEROL J7620 RELIANT RELIANT TO 2.5 5 PHARMACY PHARMACY MG & SERVICES SERVICES IPRATROPI UM BROM TO 0.5 MG PHRM Q0513 RELIANT RELIANT DISPENSIN 5 PHARMACY PHARMACY G FEE SERVICES SERVICES INHALATIO N RX; PER 30 DAYS O2 CONC 1 E1390 [facility] 5 INC INC 85%/>02 CONC AT [facility] [place] [address] QUEST QUEST IRON 5 DIAGNOSTI DIAGNOSTI [place] [address] [facility] QUE[facility] THYROID 5 DIAGNOSTI DIAGNOSTI STIMULATI CS CS NG INCORPORA INCORPORA HORMONE T T TSH 25 88849 [facility] HYDROXY 5 DIAGNOSTI DIAGNOSTI INCLUDES CS CS FRACTIONS INCORPORA INCORPORA IF T T PERFORMED CYANOCOBA 70553 [facility] QUEST JOSLYN 5 DIAGNOSTI DIAGNOSTI VITAMIN CS CS B-12 INCORPORA INCORPORA T T BASIC 33356 [facility] METABOLIC 5 DIAGNOSTI DIAGNOSTI PANEL CS CS CALCIUM INCORPORA INCORPORA TOTAL T T DRUG 05139 [facility] QUEST SCREEN 5 DIAGNOSTI DIAGNOSTI QUANTITAT CS CS ANGELIA INCORPORA INCORPORA THEOPHYLL T T INE IRON 77100 [facility] BINDING 5 DIAGNOSTI DIAGNOSTI CAPACITY CS CS INCORPORA INCORPORA T T BLOOD 62713 [facility] QUEST COUNT 5 DIAGNOSTI DIAGNOSTI COMPLETE CS CS AUTO&AUTO INCORPORA INCORPORA DIFRNTL T T WBC O2 CONC 1 E1390 [facility] 5 INC INC 85%/>02 CONC AT [facility] FLW RATE ALBUTEROL J7620 RELIANT RELIANT TO 2.5 5 PHARMACY PHARMACY MG & SERVICES SERVICES IPRATROPI UM BROM TO 0.5 MG PHRM Q0513 RELIANT RELIANT DISPENSIN 5 PHARMACY PHARMACY G FEE SERVICES SERVICES INHALATIO N RX; PER 30 DAYS O2 CONC 1 E1390 [facility] 5 INC INC 85%/>02 CONC AT [facility] FLW RATE ALBUTEROL J7620 RELIANT RELIANT TO 2.5 5 PHARMACY PHARMACY MG & SERVICES SERVICES IPRATROPI UM BROM TO 0.5 MG PHRM Q0513 RELIANT RELIANT DISPENSIN 5 PHARMACY PHARMACY G FEE SERVICES SERVICES INHALATIO N RX; PER 30 DAYS ADMN SET A7003 [facility], VOL 5 INC INC NONFILTR PNEUMAT NEBULIZR DISPBL O2 CONC 1 E1390 [facility], [facility] PORT 5 INC INC 85%/>02 CONC AT [facility] FLW RATE ALBUTEROL J7620 RELIANT RELIANT TO 2.5 5 PHARMACY PHARMACY MG & SERVICES SERVICES IPRATROPI UM BROM TO 0.5 MG PHRM Q0513 RELIANT RELIANT DISPENSIN 5 PHARMACY PHARMACY G FEE SERVICES SERVICES INHALATIO N RX; PER 30 DAYS O2 CONC 1 E1390 [facility], [facility] 4 INC INC 85%/>02 CONC AT [facility] FLW RATE IAADIADOO 61403 ANNA SORIA [place] ZAK 4 [facility]IMARY INFLUENZA CARE CENTER ADMN SET A7005 [facility], W/SM VOL 4 INC INC NONFILTR NEBULIZR NON-DISPB L ALBUTEROL J7620 RELIANT RELIANT TO 2.5 4 PHARMACY PHARMACY MG & SERVICES SERVICES IPRATROPI UM BROM TO 0.5 MG PHRM Q0513 RELIANT RELIANT DISPENSIN 4 PHARMACY PHARMACY G FEE SERVICES SERVICES INHALATIO N RX; PER 30 DAYS O2 CONC 1 E1390 [facility], [facility] [place] 4 INC INC 85%/>02 CONC AT [facility] FLW RATE O2 CONC 1 E1390 [facility], [facility] [place] 4 INC INC 85%/>02 CONC AT [facility] FLW RATE ALBUTEROL J7620 RELIANT RELIANT TO 2.5 4 PHARMACY PHARMACY MG & SERVICES SERVICES IPRATROPI UM BROM TO 0.5 MG PHRM Q0513 RELIANT RELIANT DISPENSIN 4 PHARMACY PHARMACY G FEE SERVICES SERVICES INHALATIO N RX; PER 30 DAYS PHRM Q0513 RELIANT RELIANT DISPENSIN 4 PHARMACY PHARMACY G FEE SERVICES SERVICES INHALATIO N RX; PER 30 DAYS ADMN SET A7003 [facility], VOL 4 INC INC NONFILTR PNEUMAT NEBULIZR DISPBL ALBUTEROL J7620 RELIANT RELIANT TO 2.5 4 PHARMACY PHARMACY MG & SERVICES SERVICES IPRATROPI UM BROM TO 0.5 MG O2 CONC 1 E1390 [facility], [facility] 4 INC INC 85%/>02 CONC AT [facility] FLW RATE COLLECTIO 75884 ANNA CO [place] ZAK N VENOUS 4 [facility] URE O2 CONC 1 E1390 [facility], [facility] 4 INC INC 85%/>02 CONC AT [facility] FLW RATE ALBUTEROL J7620 RELIANT RELIANT TO 2.5 4 PHARMACY PHARMACY MG & SERVICES SERVICES IPRATROPI UM BROM TO 0.5 MG PHRM Q0513 RELIANT RELIANT DISPENSIN 4 PHARMACY PHARMACY G FEE SERVICES SERVICES INHALATIO N RX; PER 30 DAYS O2 CONC 1 E1390 [facility], [facility] [place] 4 INC INC 85%/>02 CONC AT [facility] FLW RATE ALBUTEROL J7620 RELIANT RELIANT TO 2.5 4 PHARMACY PHARMACY MG & SERVICES SERVICES IPRATROPI UM BROM TO 0.5 MG PHRM Q0513 RELIANT RELIANT DISPENSIN 4 PHARMACY PHARMACY G FEE SERVICES SERVICES INHALATIO N RX; PER 30 DAYS ADMN SET A7003 [facility], VOL 4 INC INC NONFILTR PNEUMAT NEBULIZR DISPBL O2 CONC 1 E1390 [facility], [place] 4 INC INC 85%/>02 CONC AT PRS FLW RATE O2 CONC 1 E1390 [facility], [place] 4 INC INC 85%/>02 CONC AT [facility] FLW RATE ALBUTEROL J7620 RELIANT RELIANT TO 2.5 4 PHARMACY PHARMACY MG & SERVICES SERVICES IPRATROPI UM BROM TO 0.5 MG PHRM Q0513 RELIANT RELIANT DISPENSIN 4 PHARMACY PHARMACY G FEE SERVICES SERVICES INHALATIO N RX; PER 30 DAYS O2 CONC 1 E1390 [facility] DEL PORT 4 INC INC 85%/>02 CONC AT PRS FLW RATE PHRM Q0513 RELIANT RELIANT DISPENSIN 4 PHARMACY PHARMACY G FEE SERVICES SERVICES INHALATIO N RX; PER 30 DAYS ALBUTEROL J7620 RELIANT RELIANT TO 2.5 4 PHARMACY PHARMACY MG & SERVICES SERVICES IPRATROPI UM BROM TO 0.5 MG COLLECTIO 31495 ANNA CO [place] ZAK N VENOUS 4 PRIMARY [facility] URE ADMN SET A7005 PREETI ÁLVAREZ, W/SM VOL 4 INC INC NONFILTR NEBULIZR NON-DISPB L ALBUTEROL J7620 RELIANT RELIANT TO 2.5 4 PHARMACY PHARMACY MG & SERVICES SERVICES IPRATROPI UM BROM TO 0.5 MG PHRM Q0513 RELIANT RELIANT DISPENSIN 4 PHARMACY PHARMACY G FEE SERVICES SERVICES INHALATIO N RX; PER 30 DAYS O2 CONC 1 E1390 [facility] 4 INC INC 85%/>02 CONC AT PRS FLW RATE O2 CONC 1 E1390 [facility] 4 INC INC 85%/>02 CONC AT PRS FLW RATE PHRM Q0513 RELIANT RELIANT DISPENSIN 4 PHARMACY PHARMACY G FEE SERVICES SERVICES INHALATIO N RX; PER 30 DAYS ALBUTEROL J7620 RELIANT RELIANT TO 2.5 4 PHARMACY PHARMACY MG & SERVICES SERVICES IPRATROPI UM BROM TO 0.5 MG O2 CONC 1 E1390 [facility] 4 INC INC 85%/>02 CONC AT PRS FLW RATE O2 CONC 1 E1390 [facility] 3 INC INC 85%/>02 CONC AT PRS FLW RATE ALBUTEROL J7620 RELIANT RELIANT TO 2.5 3 PHARMACY PHARMACY MG & SERVICES SERVICES IPRATROPI UM BROM TO 0.5 MG PHRM Q0513 RELIANT RELIANT DISPENSIN 3 PHARMACY PHARMACY G FEE SERVICES SERVICES INHALATIO N RX; PER 30 DAYS O2 CONC 1 E1390 [facility] 3 INC INC 85%/>02 CONC AT [facility] FLW RATE O2 CONC 1 E1390 [place] [address] INC INC 85%/>02 CONC AT [facility] FLW RATE PHRM Q0513 RELIANT RELIANT DISPENSIN 3 PHARMACY PHARMACY G FEE SERVICES SERVICES INHALATIO N RX; PER 30 DAYS ALBUTEROL J7620 RELIANT RELIANT TO 2.5 3 PHARMACY PHARMACY MG & SERVICES SERVICES IPRATROPI UM BROM TO 0.5 MG ADMN SET A7003 [facility], VOL 3 INC INC NONFILTR PNEUMAT NEBULIZR DISPBL ADMN SET A7005 [facility], / VOL 3 INC INC NONFILTR NEBULIZR NON-DISPB L PHRM Q0513 RELIANT RELIANT DISPENSIN 3 PHARMACY PHARMACY G FEE SERVICES SERVICES INHALATIO N RX; PER 30 DAYS ALBUTEROL J7620 RELIANT RELIANT TO 2.5 3 PHARMACY PHARMACY MG & SERVICES SERVICES IPRATROPI UM BROM TO 0.5 MG O2 CONC 1 E1390 [facility] 3 INC INC 85%/>02 CONC AT [facility] FLW RATE PHRM Q0513 RELIANT RELIANT DISPENSIN 3 PHARMACY PHARMACY G FEE SERVICES SERVICES INHALATIO N RX; PER 30 DAYS ALBUTEROL J7620 RELIANT RELIANT TO 2.5 3 PHARMACY PHARMACY MG & SERVICES SERVICES IPRATROPI UM BROM TO 0.5 MG O2 CONC 1 E1390 [facility] 3 INC INC 85%/>02 CONC AT [facility] FLW RATE ALBUTEROL J7620 RELIANT RELIANT TO 2.5 3 PHARMACY PHARMACY MG & SERVICES SERVICES IPRATROPI UM BROM TO 0.5 MG PHRM Q0513 RELIANT RELIANT DISPENSIN 3 PHARMACY PHARMACY G FEE SERVICES SERVICES INHALATIO N RX; PER 30 DAYS RADIOLOGI 49700 [facility] 3 NUVIA EXAMINATI RADIOLOGY ON CHEST ASSOCIAT [place] FRONTAL COLLECTIO 10933 ANNA YANG FERRIS ZAK N VENOUS 3 PRIMARY BLOOD CARE [facility] CENTER URE BASIC 93032 [facility] METABOLIC 3 DIAGNOSTI DIAGNOSTI PANEL CS CS CALCIUM TOTAL CULTURE 18928 [facility] BACTERIAL 3 DIAGNOSTI DIAGNOSTI CS CS QUANTTATI VE COLONY COUNT URINE BLOOD 78733 [facility] QUEST COUNT 3 DIAGNOSTI DIAGNOSTI COMPLETE CS CS AUTO&AUTO DIFRNTL WBC RADIOLOGI 21938 [facility] C EXAM 3 EIDER MAGDALENA CHEST 2 RADIOLOGY VIEWS ASSOCIAT FRONTAL&L ATERAL CUL BACT 87669 [facility] AEROBIC 3 DIAGNOSTI DIAGNOSTI ADDL CS CS METHS DEFINITIV E EA ISOL URNLS DIP 06102 ANNA YANG HERNANDEZEF CONCHA 3 PRIMARY STICK/TAB CARE LET RGNT CENTER AUTO W/O MICROSCOP Y CULTURE 86603 [facility] BCT 3 DIAGNOSTI DIAGNOSTI ISOL&PRSM CS CS PTV ID ISOLATE EA URINE CULTURE 19007 [facility]ST QUEST BACTERIAL 3 DIAGNOSTI DIAGNOSTI CS CS QUANTTATI VE COLONY COUNT URINE SUSCEPTIB 75299 [facility] QUE[facility] LTY STDY 3 DIAGNOSTI DIAGNOSTI ANTIMICRB CS CS IAL MICRO/AGA R DILUTJ AMBULANCE A0429 [facility] SERVICE 3 MINESH CO MINESH CO BLS EMERGENCY AMBULANCE AMBULANCE TRANSPORT GROUND A0425 [facility] MILEAGE 3 MINESH CO MINESH CO PER STATUTE AMBULANCE AMBULANCE MILE O2 CONC 1 E1390 PREETI, PREETI, SHARA MONTANO 3 INC INC 85%/>02 CONC AT [facility] FLW RATE PHRM Q0513 RELIANT RELIANT DISPENSIN 3 PHARMACY PHARMACY G FEE SERVICES SERVICES INHALATIO N RX; PER 30 DAYS ALBUTEROL J7620 RELIANT RELIANT TO 2.5 3 PHARMACY PHARMACY MG & SERVICES SERVICES IPRATROPI UM BROM TO 0.5 MG ALBUTEROL J7620 RELIANT RELIANT TO 2.5 3 PHARMACY PHARMACY MG & SERVICES SERVICES IPRATROPI UM BROM TO 0.5 MG PHRM Q0513 RELIANT RELIANT DISPENSIN 3 PHARMACY PHARMACY G FEE SERVICES SERVICES INHALATIO N RX; PER 30 DAYS O2 CONC 1 E1390 [facility] 3 INC INC 85%/>02 CONC AT PRS FLW RATE URNLS DIP 45774 ANNA CO [place] ZAK 3 PRIMARY STICK/TAB CARE LET RGNT CENTER AUTO W/O MICROSCOP Y CT THORAX 29732 [facility] 3 NUVIA W/CONTRAS RADIOLOGY T ASSOCIAT MATERIAL URNLS DIP 63970 ANNA CO [place] ZAK 3 PRIMARY STICK/TAB CARE LET RGNT CENTER NON-AUTO W/O MICRSCP RADIOLOGI 07969 [facility] C EXAM 3 NUVIA CHEST 2 RADIOLOGY VIEWS ASSOCIAT FRONTAL&L ATERAL CULTURE 02177 [facility] BACTERIAL 3 DIAGNOSTI DIAGNOSTI CS CS QUANTTATI VE COLONY COUNT URINE CUL BACT 03983 [facility] AEROBIC 3 DIAGNOSTI DIAGNOSTI ADDL CS CS METHS DEFINITIV E EA ISOL GROUND A0425 [facility] MILEAGE 3 MINESH CO MINESH CO PER STATUTE AMBULANCE AMBULANCE MILE AMB A0427 [facility] SERVICE 3 MINESH CO MINESH CO ALS EMERGENCY AMBULANCE AMBULANCE TRANSPORT LEVEL 1 SUSCEPTIB 13734 [facility] QUEST LTY STDY 3 DIAGNOSTI DIAGNOSTI ANTIMICRB CS CS IAL MICRO/AGA R DILUTJ CULTURE 46627 [facility] BCT 3 DIAGNOSTI DIAGNOSTI ISOL&PRSM CS CS PTV ID ISOLATE EA URINE O2 CONC 1 E1390 [facility] 3 INC INC 85%/>02 CONC AT PRS FLW RATE ALBUTEROL J7620 RELIANT RELIANT TO 2.5 3 PHARMACY PHARMACY MG & SERVICES SERVICES IPRATROPI UM BROM TO 0.5 MG ADMN SET A7003 [facility], VOL 3 INC INC NONFILTR PNEUMAT NEBULIZR DISPBL PHRM Q0513 RELIANT RELIANT DISPENSIN 3 PHARMACY PHARMACY G FEE SERVICES SERVICES INHALATIO N RX; PER 30 DAYS O2 CONC 1 E1390 [facility] 3 INC INC 85%/>02 CONC AT PRS FLW RATE NEBULIZER E0570 [facility], WITH 3 INC INC COMPRESSO R ALBUTEROL J7620 RELIANT RELIANT TO 2.5 3 PHARMACY PHARMACY MG & SERVICES SERVICES IPRATROPI UM BROM TO 0.5 MG PHRM Q0513 RELIANT RELIANT DISPENSIN 3 PHARMACY PHARMACY G FEE SERVICES SERVICES INHALATIO N RX; PER 30 DAYS COLLECTIO 61640 ANNA CO [place] ZAK N VENOUS 3 [facility]RE O2 CONC 1 E1390 [facility] 3 INC INC 85%/>02 CONC AT PRS FLW RATE NEBULIZER E0570 [facility], WITH 3 INC INC COMPRESSO R PHRM Q0513 RELIANT RELIANT DISPENSIN 3 PHARMACY PHARMACY G FEE SERVICES SERVICES INHALATIO N RX; PER 30 DAYS ALBUTEROL J7620 RELIANT RELIANT TO 2.5 3 PHARMACY PHARMACY MG & SERVICES SERVICES IPRATROPI UM BROM TO 0.5 MG O2 CONC 1 E1390 [facility] 3 INC INC 85%/>02 CONC AT PRS FLW RATE NEBULIZER E0570 [facility], WITH 3 INC INC COMPRESSO R PHRM Q0513 RELIANT RELIANT DISPENSIN 3 PHARMACY PHARMACY G FEE SERVICES SERVICES INHALATIO N RX; PER 30 DAYS ALBUTEROL J7620 RELIANT RELIANT TO 2.5 3 PHARMACY PHARMACY MG & SERVICES SERVICES IPRATROPI UM BROM TO 0.5 MG PHRM Q0513 RELIANT RELIANT DISPENSIN 2 PHARMACY PHARMACY G FEE SERVICES SERVICES INHALATIO N RX; PER 30 DAYS ALBUTEROL J7620 RELIANT RELIANT TO 2.5 2 PHARMACY PHARMACY MG & SERVICES SERVICES IPRATROPI UM BROM TO 0.5 MG O2 CONC 1 E1390 [facility] 2 INC INC 85%/>02 CONC AT [facility] FLW RATE ALBUTEROL J7620 RELIANT RELIANT TO 2.5 2 PHARMACY PHARMACY MG & SERVICES SERVICES IPRATROPI UM BROM TO 0.5 MG PHRM Q0513 RELIANT RELIANT DISPENSIN 2 PHARMACY PHARMACY G FEE SERVICES SERVICES INHALATIO N RX; PER 30 DAYS NEBULIZER E0570 [facility], WITH 2 INC INC COMPRESSO R O2 CONC 1 E1390 [facility], [facility] PORT 2 INC INC 85%/>02 CONC AT [facility] FLW RATE NEBULIZER E0570 [facility], WITH 2 INC INC COMPRESSO R ALBUTEROL J7620 RELIANT RELIANT TO 2.5 2 PHARMACY PHARMACY MG & SERVICES SERVICES IPRATROPI UM BROM TO 0.5 MG ADMN SET A7003 [facility], VOL 2 INC INC NONFILTR PNEUMAT NEBULIZR DISPBL PHRM Q0513 RELIANT RELIANT DISPENSIN 2 PHARMACY PHARMACY G FEE SERVICES SERVICES INHALATIO N RX; PER 30 DAYS O2 CONC 1 E1390 [facility] 2 INC INC 85%/>02 CONC AT [facility] FLW RATE NEBULIZER E0570 [facility], WITH 2 INC INC COMPRESSO R RADIOLOGI 31131 [facility] C EXAM 2 W W CHEST 2 REGIONAL REGIONAL VIEWS MEDICAL MEDICAL FRONTAL&L ATERAL SBSQ 21335 [facility] 2 W [facility] CARE/DAY HOSPITALI [address] MINUTES RADIOLOGI 06780 [facility] C EXAM 2 EIDER MAGDALENA CHEST 2 RADIOLOGY VIEWS ASSOCIAT FRONTAL&L ATERAL CUL BACT 57728 [facility] AEROBIC 2 DIAGNOSTI DIAGNOSTI ADDL CS CS METHS DEFINITIV E EA ISOL CULTURE 19123 [facility] BACTERIAL 2 DIAGNOSTI DIAGNOSTI CS CS QUANTTATI VE COLONY COUNT URINE URNLS DIP 55968 ANNA CO [place] ZAK 2 PRIMARY STICK/TAB CARE LET RGNT CENTER AUTO W/O MICROSCOP Y ALBUTEROL J7620 RELIANT RELIANT TO 2.5 2 PHARMACY PHARMACY MG & SERVICES SERVICES IPRATROPI UM BROM TO 0.5 MG CULTURE 77396 [facility] BCT 2 DIAGNOSTI DIAGNOSTI ISOL&PRSM CS CS PTV ID ISOLATE EA URINE PHRM Q0513 RELIANT RELIANT DISPENSIN 2 PHARMACY PHARMACY G FEE SERVICES SERVICES INHALATIO N RX; PER 30 DAYS SUSCEPTIB 55532 [facility] QUEST LTY STDY 2 DIAGNOSTI DIAGNOSTI ANTIMICRB CS CS IAL MICRO/AGA R DILUTJ O2 CONC 1 E1390 [facility], [facility] PORT 2 INC INC 85%/>02 CONC AT PRS FLW RATE NEBULIZER E0570 [facility], WITH 2 INC INC COMPRESSO R ADMN SET A7003 [facility], VOL 2 INC INC NONFILTR PNEUMAT NEBULIZR DISPBL LIPID 67972 [facility] PANEL 2 DIAGNOSTI DIAGNOSTI CS CS PHRM Q0513 RELIANT RELIANT DISPENSIN 2 PHARMACY PHARMACY G FEE SERVICES SERVICES INHALATIO N RX; [place] [address] [place] [address] QUEST QUEST THYROID 2 DIAGNOSTI DIAGNOSTI STIMULATI CS CS NG HORMONE TSH COLLECTIO 56337 ANNA CO [place] CRESPO N VENOUS 2 PRIMARY BLO[facility] URE COMPREHEN 71313 QUEST QUEST SIVE 2 DIAGNOSTI DIAGNOSTI METABOLIC CS CS PANEL ALBUTEROL J7620 RELIANT RELIANT TO 2.5 2 PHARMACY PHARMACY MG & SERVICES SERVICES IPRATROPI UM BROM TO 0.5 MG O2 CONC 1 E1390 [facility], [facility] 2 INC INC 85%/>02 CONC AT PRS FLW RATE NEBULIZER E0570 [facility], WITH 2 INC INC COMPRESSO R PHRM Q0513 RELIANT RELIANT DISPENSIN 2 PHARMACY PHARMACY G FEE SERVICES SERVICES INHALATIO N RX; PER 30 DAYS ALBUTEROL J7620 RELIANT RELIANT TO 2.5 2 PHARMACY PHARMACY MG & SERVICES SERVICES IPRATROPI UM BROM TO 0.5 MG NEBULIZER E0570 [facility], WITH 2 INC INC COMPRESSO R PHRM Q0513 RELIANT RELIANT DISPENSIN 2 PHARMACY PHARMACY G FEE SERVICES SERVICES INHALATIO N RX; PER 30 DAYS ALBUTEROL J7620 RELIANT RELIANT TO 2.5 2 PHARMACY PHARMACY MG & SERVICES SERVICES IPRATROPI UM BROM TO 0.5 MG ADMN SET A7005 [facility], W/SM VOL 2 INC INC NONFILTR NEBULIZR NON-DISPB L NEBULIZER E0570 [facility], WITH 2 INC INC COMPRESSO R NEBULIZER E0570 [facility], WITH 2 INC INC COMPRESSO R NONINVASI 28713 ANNA SORIA [place] ZAK VE 2 PRIMARY EAR/PULSE CARE OXIMETRY CENTER SINGLE DETER ADMN SET A7003 [facility], SM VOL 2 INC INC NONFILTR PNEUMAT NEBULIZR DISPBL PHARM G0333 RELIANT RELIANT DISPEN 2 PHARMACY PHARMACY FEE INHAL SERVICES SERVICES RX; INITIAL 30-DAY SUPPLY ALBUTEROL J7620 RELIANT RELIANT TO 2.5 2 PHARMACY PHARMACY MG & SERVICES SERVICES IPRATROPI UM BROM TO 0.5 MG CULTURE 74485 LABORATOR LABORATOR BACTERIAL 2 Y & Y & BIODIAGNO BIODIAGNO QUANTTATI STICTaylor HANNA VE COLONY COUNT URINE CUL BACT 78450 LABORATOR LABORATOR AEROBIC 2 Y & Y & ADDL BIODIAGNO BIODIAGNO METHS STIC STICS DEFINITIV E EA ISOL URNLS DIP 15081 ANNA CO POCZATEK 2 PRIMARY PAT STICK/TAB CARE LET RGNT CENTER AUTO W/O MICROSCOP Y SUSCEPTIB 76931 LABORATOR LABORATOR LTY STDY 2 Y & Y & ANTIMICRB BIODIAGNO BIODIAGNO IAL STICTaylor HANNA MICRO/AGA R DILUTJ LIPID 54563 LABORATOR LABORATOR PANEL 1 Y & Y & [facility] LABORATOR LABORATOR IN DIRECT 1 Y & Y & BIODIAGNO BIODIAGNO MEASUREME STICS [place] [address] LABORATOR LABORATOR THYROID 1 Y & Y & STIMULATI BIODIAGNO BIODIAGNO NG STICS STICS HORMONE TSH COMPREHEN 01010 LABORATOR LABORATOR SIVE 1 Y & Y & METABOLIC BIODIAGNO BIODIAGNO PANEL STICS STICS COLLECTIO 45989 ANNA MD [place] ZAK N VENOUS 1 PRIMARY BLOOD CARE VENIPUNCT CENTER URE COLLECTIO 53605 ANNA CO [place] ZAK N VENOUS 1 PRIMARY BLOOD CARE VENIPUNCT CENTER URE DRUG 64205 LABORATOR LABORATOR SCREEN 1 Y & Y & QUANTITAT BIODIAGNO BIODIAGNO ANGELIA STICS STICS THEOPHYLL INE LIPID 35320 LABORATOR LABORATOR PANEL 1 Y & Y & BIODIAGNO BIODIAGNO STICS STICS LIPOPROTE 02316 LABORATOR LABORATOR IN DIRECT 1 Y & Y & BIODIAGNO BIODIAGNO MEASUREME STICS STICS NT LDL CHOLESTER [place] IRON 99590 LABORATOR LABORATOR BINDING 1 Y & Y & CAPACITY BIODIAGNO BIODIAGNO STICS STICS BLOOD 13022 LABORATOR LABORATOR COUNT 1 Y & Y & COMPLETE BIODIAGNO BIODIAGNO AUTO&AUTO STICS STICS DIFRNTL WBC COMPREHEN 18034 LABORATOR LABORATOR SIVE 1 Y & Y & METABOLIC BIODIAGNO BIODIAGNO PANEL STICS STICS COLLECTIO 31570 [facility] PRIMARY BLOOD [place] [address] LABORATOR LABORATOR FERRITIN 1 Y & Y & BIODIAGNO BIODIAGNO STICS STICS CYANOCOBA 42361 LABORATOR LABORATOR JOSLYN 1 Y & Y & VITAMIN BIODIAGNO BIODIAGNO B-[address] [place] [address] LABORATOR LABORATOR THYROID 1 Y & Y & STIMULATI BIODIAGNO BIODIAGNO [place] [address] LABORATOR LABORATOR IRON 1 Y & Y & BIODIAG[place] [address] LABORATOR LABORATOR FREE 1 Y & Y & THYROXINE BIODIAGNO BIODIAGNO STICS STICS CUL BACT 81182 LABORATOR LABORATOR AEROBIC 0 Y & Y & ADDL BIODIAGNO BIODIAGNO METHS STICS STICS DEFINITIV E EA ISOL CULTURE 89878 LABORATOR LABORATOR BACTERIAL 0 Y & Y & BIODIAGNO BIODIAGNO QUANTTATI STICS STICS VE COLONY COUNT URINE SUSCEPTIB 84433 LABORATOR LABORATOR LTY STDY 0 Y & Y & ANTIMICRB BIODIAGNO BIODIAGNO IAL STICS STICS MICRO/AGA R DILUTJ INJECTION J1040 [facility] DNISOLONE PSC ACETATE 80 MG IIV3 10104 [facility] VACCINE 0 [facility] VIRUS 0.5 PSC ML DOSAGE IM USE THERAPEUT 36697 [facility] IC 0 [facility] TIC/DX [facility]SC INJECTION SUBQ/IM ADMINISTR G0008 [facility] ATION OF 0 [facility] VIRUS PSC VACCINE THERAPEUT 86905 [facility] IC [facility] T[facility]/DX [facility] INJECTION SUBQ/IM INJECTION J1030 [facility] DNISOLONE PSC ACETATE 40 MG COMPREHEN 88514 [facility] SIVE 0 [facility] METABOLIC LABORATOR LABORATOR PANEL Y Y COLLECTIO 85102 [facility] N VENOUS 0 [facility]IN[facility] BLOOD LABORATOR LAB[place] [address] [facility] THYROID 0 [facility] STIMULATI LABORATOR LABOR[place] [address] [facility] FREE 0 [facility] THYROXINE LABORATOR LABORATOR Y Y DRUG 24358 [facility] SCREEN 0 [facility] QUANTITAT LABORATOR LABORATOR ANGELIA Y Y THEOPHYLL INE LIPID 74545 [facility] PANEL 0 CLIN[facility] CLINIC LABORATOR LABORATOR Y Y LIPID 94531 [facility] [place] [address] [facility] THYROID 0 CLINIC CLINIC STIMULATI LABORATOR LABOR[place] [address] [facility] FREE 0 CLINIC CLINIC THYROXINE LABORATOR LABORATOR Y Y COLLECTIO 86607 [facility] N VENOUS 0 CLINIC CLINIC BLOOD LABORATOR LABORATOR VENIPUNCT Y Y URE COMPREHEN 20557 [facility] SIVE 0 CLINIC CLINIC METABOLIC LABORATOR LABORATOR PANEL Y Y RADIOLOGI 05972 [facility] [place] Ana JEFFERSON EXAM 0 RADIOLOGY HANNAH A CHEST 2 VIEWS FRONTAL&L ATERAL CT THORAX 67809 [facility] [place] PIERRE, 0 RADIOLOGY GAIL L W/CONTRAS T MATERIAL ADMN SET A7005 PEDIATRIC PEDIATRIC W/SM VOL 9 PRODUCTS PRODUCTS NONFILTR Kaminario NEBULIZR NON-DISPB L ALBUTEROL J7620 [facility] TO 2.5 9 PHARMACY PHARMACY MG & #10-1569 #10-1569 IPRATROPI UM BROM TO 0.5 MG PHARM G0333 [facility] DISPEN 9 PHARMACY PHARMACY FEE INHAL #10-1569 #10-1569 RX; INITIAL 30-DAY SUPPLY NEBULIZER E0570 PEDIATRIC PEDIATRIC WITH 9 PRODUCTS PRODUCTS COMPRESSO Kaminario R LIPID 77235 [facility] PANEL 9 [place] [employer] [facility] [place] [address] [facility] FREE 9 [facility] [email or web address] [facility] [place] [place] [address] [facility] THYROID 9 [facility] STIMULATI NG HORMONE TSH COMPREHEN 96906 [facility] SIVE 9 [facility] METABOLIC PANEL RADIOLOGI 69392 Ana [place] EXAM 9 EMERGENCY [place] L CHEST 2 SERVICES VIEWS FRONTAL&L ASSOCIATE ATERAL S RADEX HIP 62619 ANNA OWENS, 9 [facility] COMPLETE MINIMUM 2 VIEWS LIPID 97460 [facility] PANEL 8 Pure Elegance TV [facility] BLOOD 29968 [facility] COUNT 8 [facility] COMPLETE AUTO&[place] [address] [facility] THYROID 8 [facility] STIMULATI NG HORMONE TSH BASIC 91716 [facility] METABOLIC 8 [facility] INC PANEL CALCIUM TOTAL RADIOLOGI 44338 [facility] EXAM 8 [place] JR, CHEST 2 IMAGING ANNITA R VIEWS INC FRONTAL&L ATERAL INJECTION J0696 ANNA SORIA HARRISON, 8 PRIMARY PATITO G [facility]UM [facility]ENTER[facility] PER 250 MG RADIOLOGI 77377 [facility], C EXAM 8 [place] ESTELA B CHEST 2 IMAGING VIEWS INC FRONTAL&L ATERAL Encounters Encounter Start End Date Code Location Performer Type Date OFFICE 48333 MAUREEN MCDANIEL OUTPATIEN 7 7 PHYSICIAN T NEW 30 PRACTICE MINUTES [facility] GANESH - 7 7 W [facility] G[facility] - 7 7 W [facility] 44845 [facility] PHYSICIAN T NEW 10 S GROUP [facility] VIVIANE - 7 7 [facility] OUTPATIEN [facility] T OFFICE 47451 VIVIANE OUTPATIEN 7 7 [facility] T NEW 10 INC [facility] V[facility] - 7 7 [facility] OUTPATIEN [facility] VIVIAN[facility] - 7 7 [facility] OUTPATIEN [facility] T OFFICE 25770 ANNA SORIA OUTPATIEN 6 6 FAMILY T VISIT HEALTH 15 CTR MINUTES EMERGENCY 56246 [facility] DEPT 6 6 IDALIA VISIT EMERGENCY HIGH PHYS SEVERITY& THREAT [facility] GANESH - 6 6 W [facility] MEDICAL EMERGENCY 81873 GANESH 6 6 W [facility] VISIT MEDICAL HIGH/URGE NT SEVERITY OFFICE 40435 ANNA CO OUTPATIEN 6 6 FAMILY T VISIT HEALTH 15 CTR MINUTES OFFICE 17441 ANNA CO OUTPATIEN 6 6 FAMILY T VISIT HEALTH 15 CTR MINUTES OFFICE 90088 ANNA CO OUTPATIEN 5 5 FAMILY T VISIT HEALTH 15 CTR MINUTES OFFICE 57044 ANNA CO OUTPATIEN 5 5 FAMILY T VISIT HEALTH 15 CTR MINUTES EMERGENCY 67716 [facility] DEPT 5 5 IDALIA DEISY VISIT EMERGENCY HIGH PHYS SEVERITY& THREAT FUN EMERGENCY 54191 [facility] DEPT 5 5 [place]IA DEISY VISIT EMERGENCY HIGH PHYS SEVERITY& THREAT [facility] MEAWVIE - 5 5 W [facility] MEDICAL OFFICE 67385 ANNA CO OUTPATIEN 5 5 PRIMARY T VISIT CARE 15 CENTER MINUTES EMERGENCY 77564 [facility] 5 5 IDALIA CHR DEPARTMEN EMERGENCY T VISIT PHYS HIGH/URGE NT SEVERITY OFFICE 53200 ANNA CO OUTPATIEN 5 5 PRIMARY T VISIT CARE 15 CENTER MINUTES OFFICE 66741 ANNA CO OUTPATIEN 4 4 PRIMARY T VISIT CARE 15 CENTER MINUTES OFFICE 56220 ANNA CO OUTPATIEN 4 4 PRIMARY T VISIT CARE 15 CENTER MINUTES EMERGENCY 17379 [facility] ROBERT DEPARTMEN EMERGENCY T VISIT PHYS HIGH/URGE NT SEVERITY OFFICE 36999 ANNA CO OUTPATIEN 4 4 PRIMARY T VISIT CARE 15 CENTER MINUTES OFFICE 90243 ANNA CO OUTPATIEN 4 4 PRIMARY T VISIT CARE 15 CENTER MINUTES OFFICE 69698 ANNA CO OUTPATIEN 4 4 PRIMARY T VISIT CARE 15 CENTER MINUTES EMERGENCY 57772 DONA SAMS DEPT 3 3 EMERGENCY VISIT SERVICES HIGH SEVERITY& THREAT FUNCJ OFFICE 22402 ANNA CO OUTPATIEN 3 3 PRIMARY T VISIT CARE 15 CENTER MINUTES EMERGENCY 11416 DONA WELLS DEPT 3 3 EMERGENCY CHR VISIT SERVICES HIGH SEVERITY& THREAT FUNCJ OFFICE 35126 ANNA CO OUTPATIEN 3 3 PRIMARY T VISIT CARE 15 CENTER MINUTES OFFICE 87299 ANNA CO OUTPATIEN 3 3 PRIMARY T VISIT CARE 15 CENTER MINUTES OFFICE 88641 ANNA CO OUTPATIEN 3 3 PRIMARY T VISIT CARE 15 CENTER MINUTES EMERGENCY 03495 DONA HERNANDEZ 3 3 EMERGENCY ROBERT DEPARTMEN SERVICES T VISIT HIGH/URGE NT SEVERITY OFFICE 86940 ANNA CO OUTPATIEN 3 3 PRIMARY T VISIT CARE 15 CENTER MINUTES OFFICE 42952 ANNA CO OUTPATIEN 3 3 PRIMARY T VISIT CARE 15 CENTER MINUTES OFFICE 02997 ANNA CO OUTPATIEN 2 2 PRIMARY T VISIT CARE 15 CENTER MINUTES OFFICE 04465 ANNA CO OUTPATIEN 2 2 [facility] T VIS[facility]ARE [facility] C[facility] W OUTPATIEN [facility]ION[facility] T MEDICAL OFFICE 22550 ANNA CO OUTPATIEN 2 2 PRIMARY T VISIT CARE 10 CENTER MINUTES EMERGENCY 75866 DONA WELLS DEPT 2 2 EMERGENCY CHR VISIT SERVICES HIGH SEVERITY& THREAT FUNCJ OFFICE 73417 ANNA CO OUTPATIEN 2 2 PRIMARY T VISIT CARE 15 CENTER MINUTES OFFICE 32270 ANNA CO OUTPATIEN 2 2 PRIMARY T VISIT CARE 15 CENTER MINUTES OFFICE 92778 ANNA CO OUTPATIEN 2 2 PRIMARY T VISIT CARE 25 CENTER MINUTES OFFICE 51796 ANNA CO OUTPATIEN 2 2 PRIMARY T VISIT CARE 25 CENTER MINUTES OFFICE 59801 ANNA CO OUTPATIEN 2 2 PRIMARY T VISIT CARE 15 CENTER MINUTES OFFICE 27206 ANNA CO OUTPATIEN 2 2 PRIMARY T VISIT CARE 15 CENTER MINUTES OFFICE 16630 ANNA CO OUTPATIEN 2 2 PRIMARY T VISIT CARE 15 CENTER MINUTES OFFICE 57491 ANNA CO OUTPATIEN 2 2 PRIMARY T VISIT CARE 15 CENTER MINUTES OFFICE 45614 ANNA CO OUTPATIEN 1 1 PRIMARY T VISIT CARE 15 CENTER MINUTES OFFICE 80144 ANNA CO [place] ZAK OUTPATIEN 1 1 PRIMARY T VISIT CARE 15 CENTER MINUTES OFFICE 70703 ANNA CO OUTPATIEN 1 1 PRIMARY T VISIT CARE 10 CENTER MINUTES OFFICE 76111 ANNA CO OUTPATIEN 1 1 PRIMARY T VISIT CARE 15 CENTER MINUTES OFFICE 64405 [facility] [place] USH OUTPATIEN 0 0 [place] [facility] 15 PSC MINUTES OFFICE 78839 NEW OUTPATIEN 0 0 [place] [facility] 15 PSC MINUTES OFFICE 04980 [place], OUTPATIEN 0 0 [place] JACLYN R T VISIT CLINIC 15 PSC MINUTES OFFICE 75495 [place], OUTPATIEN 0 0 [place] JACLYN R T VISIT CLINIC 15 PSC MINUTES OFFICE 27014 [place], OUTPATIEN 0 0 [place] JACLYN R T VISIT CLINIC 15 PSC MINUTES OFFICE 80817 [place], OUTPATIEN 0 0 [place] JACLYN R T NEW 20 CLINIC MINUTES PSC OFFICE 82977 ANNA CO OUTPATIEN 9 9 [facility] T VISIT CARE 15 CENTERINC MINUTES CLINIC, [facility] CO FREE 9 9 [facility] OFFICE 02215 [facility] CO OUTPATIEN 9 9 [facility] T VISIT CARE 15 CENTERINC MINUTES CLINIC, [facility] CO FREE 9 9 [facility], [facility] CO FREE 9 9 [facility] OFFICE 69434 AN[facility] CO OUTPATIEN 9 9 [facility] T VISIT CARE 15 CENTERINC MINUTES CLINIC, ANNA CO FREE 9 9 [facility] OFFICE 81604 [facility] CO OUTPATIEN 9 9 [facility]IMARY T VISIT CARE 15 CENTERINC MINUTES CLINIC, [facility]NA CO FREE 9 9 [facility] OFFICE 67596 [facility] CO OUTPATIEN 9 9 [facility] T VISIT CARE 15 CENTERINC MINUTES EMERGENCY 43276 DONA CALLES, DEPT 9 9 EMERGENCY [place] L VISIT SERVICES HIGH SEVERITY& ASSOCIATE THREAT S FUN CLINIC, [facility]NA CO FREE 9 9 [facility] OFFICE 12380 [facility] CO OUTPATIEN 9 9 PRIMARY T VISIT CARE 25 CENTERINC MINUTES OFFICE 46972 ANNA SORIA POCZAALEK, OUTPATIEN 8 8 [facility]IMARY [place] S T VISIT CARE 15 CENTERINC MINUTES OFFICE 98548 ANNA SORIA POCZATEK, OUTPATIEN 8 8 [facility] S T VISIT CARE 15 CENTERINC MINUTES OFFICE 69119 FANY GREEN 8 8 PRIMARY PATITO G T VISIT CARE 25 CENTERINC MINUTES
--- OUTSIDE RECORDS SUMMARY | 2017-08-26 09:10 | External Medical Summary Rpt | CCD ---
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 Name Role Phone JONAS MCDANIEL Unavailable Unavailable AWOSIKA, AWOSIKA Unavailable Unavailable AWOSIKA, AWOSIKA Unavailable Unavailable SAM, SAM Unavailable Unavailable [facility] Un[facility], [facility] GAIL PIERRE BUCK, Unavailable Unavailable GAIL BROWN, Unavailable Unavailable BACILIO SOMMERS Unavailable Unavailable MONICA [...] INC BARRINGTON ZAK, BARRINGTON ZAK Unavailable Unavailable [facility], Unavailable Unavailable [facility] PITER LOZADA Unavailable Unavailable [facility] Unavailable [facility], [facility] ZOY[facility] Unavailable Unavailable [...] [facility] Un[facility] Unavailable LABORATORY, [facility], Unavailable Unavailable [facility], Unavailable Unavailable [facility] Unavailable Unavailable SERVICES, [facility] Unavailable Unavailable AMBUL[facility], [facility] Unavailable Unavailable AMBULANCE, [facility] Unavailable Unavailable ASSOCIAT, [facility] Unavailable Unavailable HOSPITALIST, [facility] Unavailable Unavailable MEDICAL, [facility] MEDICAL [facility] Unavailable Unavailable MEDICAL, [facility] MEDICAL [facility] JAVIER FOSS Unavailable Unavailable [facility] Unavailable Unavailable [facility], [facility] Unavailable Unavailable LLC, [facility] [...] CALLES ROBERT B, Unavailable Unavailable [facility] Unavailable Unavailable [facility], [facility] MCGUIRE KER, MCGUIRE KER Unavailable Unavailable [facility], Unavailable Unavailable [facility] Unavailable Unavailable #[phone], [facility] #[phone] CHARLES GUTIERREZ, Unavailable Unavailable CHARLES OLIVAS, KYRA Unavailable Unavailable DEISY Purpose Continuity of Care Document - 12-02-2007 through 2016 Problems Code Diagnosis DOS Provider Status J3489 OTHER 04-06-2017 [facility] SPECIFIED PHYSICIAN DISORDERS PRACTICE L NOSE AND NASAL SINUSES Z9981 DEPENDENCE 04-06-2017 [facility] ON PHYSICIAN SUPPLEMENTA PRACTICE L L OXYGEN 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 [facility] SIS UNS W/O REGIONAL THYROTOXIC MEDICAL CRISIS/STOR M N98235 COMBINED 02-09-2017 [facility] FORMS OF REGIONAL AGE-RELATED MEDICAL CATARACT RIGHT EYE H269 UNSPECIFIED 02-09-2017 [facility] CATARACT [facility] MEDICAL J449 CHRONIC 02-09-2017 [facility] OBSTRUCTIVE REGIONAL PULMONARY MEDICAL DISEASE UNS K219 GASTRO-ESOP 02-09-2017 [facility] H REFLUX REGIONAL DISEASE MEDICAL WITHOUT ESOPHAGITIS H19205 DERMATOCHAL 01-26-2017 [facility] ASIS OF UNS REGIONAL EYE UNS MEDICAL EYELID M67359 COMBINED 01-26-2017 [facility] CATARACT LEFT EYE T50874 COMBINED 01-26-2017 [facility] FORMS OF REGIONAL AGE-RELATED MEDICAL CATARACT BILATERAL H538 OTHER 01-26-2017 [facility] VISUAL REGIONAL DISTURBANCE MEDICAL S J00 ACUTE 01-22-2017 [facility] NASOPHARYNG PHYSICIANS ITIS COMMON GROUP COLD J310 CHRONIC 01-22-2017 [facility] RHINITIS PHYSICIANS GROUP J342 DEVIATED 01-22-2017 [facility] NASAL PHYSICIANS SEPTUM GROUP A53370 PERSONAL 01-18-2017 [facility] OF [facility] NICOTINE INC DEPENDENCE [id number] NONEXUDAT 12-16-2016 AWOSIKA AGE-REL MAC DEGEN RUFUS [...] HEALTH CTR WITH HYPOXIA R5381 OTHER 12-11-2015 [facility] R609 EDEMA 12-11-2015 [facility] UNSPECIFIED N EMERGENCY PHYS Z6825 BODY MASS 12-11-2015 [facility] INDEX BMI REGIONAL 25.0-25.9 MEDICAL ADULT Z7982 CUSTODIAL 12-11-2015 [facility] CURRENT USE REGIONAL OF [place] MEDICAL V42307 PERSONAL 12-11-2015 [facility] HISTORY OF REGIONAL URINARY [...] CTR S TISSUE UNS J9600 ACUTE 08-11-2015 [facility] RESPIRATORY HOSPITALIST FAIL UNS HYPOXIA/HYP ERCAPNIA J9690 RESP FAIL 08-07-2015 [facility] UNS UNS N EMERGENCY WHETHER PHYS W/HYPOXIA/H YPERCAPNIA R0602 SHORTNESS 08-07-2015 [facility] R079 CHEST PAIN 08-07-2015 [facility] R0902 HYPOXEMIA 08-07-2015 [facility] N EMERGENCY PHYS N390 URINARY 08-04-2015 [facility] TRACT N EMERGENCY INFECTION PHYS SITE NOT SPECIFIED Z720 TOBACCO USE 08-04-2015 [facility] MEDICAL Z8541 PERSONAL 08-04-2015 [facility] MALIGNANT MEDICAL NEOPLASM CERVIX UTERI 5950 ACUTE 08-01-2015 [facility] 5990 URINARY 07-29-2015 [facility]ERGENCY INFECTION PHYS SITE NOT SPECIFIED 7881 DYSURIA 07-29-2015 [facility] PHYS 496 CHRONIC 07-25-2015 [facility] OBSTRUCTION SERVICES NEC 2449 UNSPECIFIED 02-06-2015 [facility] HYPOTHYROID INCORPORAT ISM 2689 UNSPECIFIED 02-06-2015 [facility] V[facility] D [facility] DEFICIENCY INCORPORAT 2724 OTHER AND 02-06-2015 [facility] INCORPORAT HYPERLIPIDE DAMION 2859 UNSPECIFIED 02-06-2015 [facility] ANEMIA [facility] INCORPORAT 3899 UNSPECIFIED 02-06-2015 [facility]ING [facility] LOSS INCORPORAT 54510 OBSTRUCTIVE 02-06-2015 [facility] BRONCHITIS INCORPORAT WITHOUT EXACERBAT 92312 UNSPECIFIED 02-06-2015 [facility] SLEEP [facility] DISTURBANCE INCORPORAT 97369 OTHER 02-06-2015 [facility] FATIGUE INCORPORAT 4878 INFLUENZA 10-19-2014 [facility] WITH OTHER PRIMARY MANIFESTATI CARE CENTER ONS 4618 OTHER ACUTE 07-10-2014 [facility] SINUSITIS [facility] V5869 LONG-TERM 07-06-2014 [facility] (CURRENT) PRIMARY USE OF CARE CENTER OTHER MEDICATIONS 52638 OBSTRUCTIVE 05-30-2013 [facility] CHRONIC EMERGENCY BRONCHITIS SERVICES WITH EXACERBATIO N 41292 CHEST PAIN 05-30-2013 [facility] UNSPECIFIED [facility]Y ASSOCIAT 76855 OTHER 05-30-2013 [facility] NONSPECIFIC [facility] ABNORMAL ASSOCIAT FINDING OF LUNG FIELD 4928 OTHER 05-24-[facility] 13511 OTHER 05-24-2013 [facility] RESPIRATORY ABNORMALITI ES 7867 ABNORMAL 05-23-2013 [facility] SOUNDS [facility]BULANCE 515 POSTINFLAMM 03-22-2013 [facility] ATORY [facility] PULMONARY ASSOCIAT FIBROSIS 71856 OTHER 03-22-2013 [facility] DISEASES OF RADIOLOGY LUNG NOT ASSOCIAT ELSEWHERE CLASSIFIED 7862 COUGH 03-21-2013 [facility] 4660 ACUTE 10-15-2012 [facility] BRONCHITIS [facility] 486 PNEUMONIA, 07-14-2012 [facility] ORGANISM REGIONAL UNSPECIFIED MEDICAL 5180 PULMONARY 07-14-2012 [facility] COLLAPSE [facility] V0481 NEED 08-04-2011 [facility] PROPHYLACTI PRIMARY C CARE CENTER VACCINATION &INOCULATIO N FLU 2809 UNSPECIFIED 03-04-2011 LABORATORY IRON & DEFICIENCY BIODIAGNOST ANEMIA ICS 4619 ACUTE 07-19-2010 NEW [facility], [facility] 4779 ALLERGIC 07-19-2010 NEW RHINITIS [facility] CAUSE [facility] UNSPECIFIED 10124 ARTHRALGIA 03-06-2010 [facility] IBULAR JOINT 4659 ACUTE URIS 06-29-2009 [facility] OF PRIMARY UNSPECIFIED CARE SITE CENTERINC 490 BRONCHITIS 04-28-2009 [place] NOT EMERGENCY SPECIFIED SERVICES ACUTE OR ASSOCIATES CHRONIC 5199 UNSPECIFIED 04-28-2009 [facility] DISEASE OF RADIOLOGY ASSOCIATES RESPIRATORY [facility] SYSTEM 23895 PRIMARY LOC 12-20-2008 [facility] PRIMARY OSTEOARTHRO CARE SIS PELVIC CENTERINC REGION&THIG H 37670 PAIN IN 12-20-2008 [facility] INC REGION AND THIGH 2720 PURE 12-02-2007 [facility] HYPERCHOLES PRIMARY TEROLEMIA CARE CENTERINC 51110 PNEUMONIA 12-02-2007 [facility] DUE TO PRIMARY [...] blood 15:50 platele t mean volume payton Orange % = 4.0 % 1.7-9.3 complet 017 [...] SQUARE METERS Comment: If this patient is -Kyrgyz, then multiply the Comment: result by 1.210. [...] N HCL 500 MEDICAL MEDICAL MG CATARACT 32823 [facility] REMOVAL 7 W W INSERTION REGIONAL REGIONAL OF LENS MEDICAL MEDICAL OPH BMTRY [address] [place] [address] [facility] A-SCAN IO LENS PWR KENISHA INJECTION J3370 [facility] 7 W W VANCOMYCI REGIONAL REGIONAL N HCL 500 MEDICAL MEDICAL MG CATARACT 07289 [facility] REMOVAL 7 W W INSERTION [...] GENTAMICI N UP TO 80 MG OPHTH 16792 [facility] MEDICAL 7 XM&EVAL COMPRE NEW PT 1/> VST FUNDUS 52034 [facility] PHOTOGRAP 7 HY W/INTERPR ETATION & REPORT CT THORAX 35228 [facility] PAN W/O 7 [facility] CONTRAST INC INC MATERIAL RADIOLOGI 01-04-201 18836 [facility] PAN C EXAM 7 [facility] [...] N RX; PER 30 DAYS HOME E0466 [facility] [place] 6 INC INC R ANY TYPE USED W/NON-INV ASV INTF FEDERALLY G0467 [facility] [address] [facility] [place] CTR CTR CENTER VISIT ESTAB PT BASIC 27293 [facility] METABOLIC 6 PIEDAD PIEDAD PANEL HOLDINGS HOLDINGS CALCIUM TOTAL PRTBLE E0431 [facility], G[facility] 6 INC INC O2 SYS RENT; FLWMTR HUMIDFR&M ASK NATRIURET 23858 [facility] IC 6 W W PEPTIDE [place]ION[place] [address] [facility] TROPONIN 6 W W QUANTITAT REGIONAL REGIONAL ANGELIA MEDICAL MEDICAL BLOOD 37250 [facility] COUNT 6 W W COMPLETE REGIONAL REGIONAL AUTO&AUTO MEDICAL MEDICAL DIFRNTL WBC ECG 73596 [facility] ROUTINE 6 IDALIA ECG EMERGENCY W/LEAST PHYS 12 LDS I&R ONLY BASIC 05158 [facility] METABOLIC 6 W W PANEL REGIONAL REGIONAL CALCIUM MEDICAL MEDICAL TOTAL RADIOLOGI [address] [facility] BACILIO C EXAM 6 [facility] CHEST 2 RADIOLOGY VIEWS ASSOCIAT FRONTAL&L ATERAL ECG 61337 [facility] ROUTINE 6 W W ECG REGIONAL REGIONAL W/LEAST MEDICAL MEDICAL 12 LDS TRCG ONLY W/O I&R CREATINE 82265 [facility] KINASE 6 W W TOTAL REGIONAL REGIONAL MEDICAL MEDICAL ALBUTEROL J7620 [facility] RELIANT TO 2.5 6 PHARMACY PHARMACY MG & SERVICES SERVICES IPRATROPI UM BROM TO 0.5 MG ADMN SET A7003 [facility] [place] VOL 6 INC INC NONFILTR PNEUMAT NEBULIZR DISPBL PHRM Q0513 [facility] RELIANT DISPENSIN 6 PHARMACY PHARMACY G FEE SERVICES SERVICES INHALATIO N RX; PER 30 DAYS FEDERALLY G0467 [facility] [address] [facility] [place] [place] [address] [facility] THYROID 6 PIEDAD PIEDAD STIMULATI HOLDINGS HOLDINGS NG HORMONE TSH CUL BACT 74764 [facility] XCPT 6 [facility] URINE HOLDINGS HOLDINGS BLOOD/STO OL AEROBIC ISOL FEDERALLY G0467 [facility] [address] [facility] ([place] [place] CTR CTR CENTER VISIT ESTAB PT PRSSURE E0464 [facility], SUPP VENT 6 INC INC W/VOL CNTRL NONINVASV INTERFCE PRTBLE E0431 [facility], GASEOUS 6 INC INC O2 SYS RENT; FLWMTR HUMIDFR&M ASK PRSSURE E0464 [facility], SUPP VENT 5 INC INC W/VOL CNTRL NONINVASV INTERFCE PHRM Q0513 REL[facility] RELIANT DISPENSIN 5 PHARMACY PHARMACY G FEE SERVICES SERVICES INHALATIO N RX; PER 30 DAYS ALBUTEROL J7620 RELIANT RELIANT TO 2.5 5 PHARMACY PHARMACY MG & SERVICES SERVICES IPRATROPI UM BROM TO 0.5 MG PRTBLE E0431 [facility], GASEOUS 5 INC INC O2 SYS RENT; FLWMTR HUMIDFR&M ASK PORTABLE E0443 [facility], O2 5 INC INC CONTENTS GASEOUS 1 MO SUPPLY=1 UNIT FEDERALLY G0467 [facility] [address] [facility] ([place] [place] CTR CTR CENTER VISIT ESTAB PT FEDERALLY G0467 [facility] [address] [facility] ([place] [place] [place] [address] [facility] THYROID 5 PIEDAD PIEDAD STIMULATI HOLDINGS HOLDINGS NG HORMONE TSH PRSSURE E0464 [facility], SUPP VENT 5 INC INC W/VOL CNTRL NONINVASV INTERFCE PRTBLE E0431 [facility], GASEOUS 5 INC INC O2 SYS RENT; FLWMTR HUMIDFR&M ASK PORTABLE E0443 [facility], O2 5 INC INC CONTENTS GASEOUS 1 MO SUPPLY=1 UNIT PRSSURE E0464 [facility], SUPP VENT 5 INC INC W/VOL CNTRL NONINVASV INTERFCE HOS BED E0260 [facility], SEMI-ELEC 5 INC INC W/ANY TYPE SIDE RAIL W/MATTRSS COMMODE E0163 [facility], CHAIR 5 INC INC MOBILE OR STATIONAR Y W/FIXED ARMS PRTBLE E0431 [facility], GASEOUS 5 INC INC O2 SYS RENT; FLWMTR HUMIDFR&M ASK SBSQ [address] [facility] [address] MAR CARE/DAY HOSPITALI 25 ST MINUTES SBSQ [address] [facility] [address] MAR CARE/DAY [facility] [address] MINUTES SBSQ 17070 [facility] [address] MAR CARE[facility] [address] MINUTES INITIAL 9[address]46 [facility] [address] MAR CARE[facility] [address] MINUTES GROUND A0425 [facility] MILEAGE 5 MINESH CO MINESH CO PER STATUTE AMBULANCE AMBULANCE MILE AMB A0427 [facility] SERVICE 5 MINESH CO MINESH CO ALS EMERGENCY AMBULANCE AMBULANCE TRANSPORT LEVEL 1 ECG 57540 [facility] ROUTINE 5 IDALIA DEISY ECG EMERGENCY W/LEAST PHYS 12 LDS I&R ONLY RADIOLOGI [address] RADIOLOGY ON CHEST ASSOCIAT [facility] [address] [facility] T 30 MIN/< SBSQ 49374 [facility] 5 W [facility] C[facility]DAY [facility] [address] MINUTES INITIAL 75439 [facility] 5 W [facility] C[facility]DAY [facility] [address] MINUTES RADIOLOGI 70389 [facility] C 5 EIDER MAGDALENA EXAMINATI RADIOLOGY ON CHEST ASSOCIAT [place] FRONTAL FEDERALLY G0467 [facility] 5 [facility] CENTER VISIT ESTAB PT PHRM Q0513 [...] MG O2 CONC 1 E1390 PREETI ÁLVAREZ [facility] PORT 5 INC INC 85%/>02 CONC AT [facility] FLW RATE ALBUTEROL J7620 RELIANT RELIANT TO 2.5 5 PHARMACY PHARMACY MG & SERVICES SERVICES IPRATROPI UM BROM TO 0.5 MG PHRM Q0513 REL[facility] RELIANT DISPENSIN 5 PHARMACY PHARMACY G FEE SERVICES SERVICES INHALATIO N RX; PER 30 DAYS O2 CONC 1 05-18-201 E1390 [facility] 5 INC INC 85%/>02 CONC AT PRS FLW RATE ALBUTEROL J7620 RELIANT RELIANT TO 2.5 5 PHARMACY PHARMACY MG & SERVICES SERVICES IPRATROPI UM BROM TO 0.5 MG PHRM Q0513 RELIANT RELIANT DISPENSIN 5 PHARMACY PHARMACY G FEE SERVICES SERVICES INHALATIO N RX; PER 30 DAYS O2 CONC 1 E1390 [facility] 5 INC INC 85%/>02 [facility]C AT [facility] [place] [address] [facility] IRON 5 DIAGNOSTI DIAGNOSTI [place] [address] [facility] THYROID 5 DIAGNOSTI DIAGNOSTI STIMULATI CS CS NG INCORPORA INCORPORA HORMONE T T TSH 25 32362 [facility] HYDROXY 5 DIAGNOSTI DIAGNOSTI INCLUDES CS CS FRACTIONS INCORPORA INCORPORA IF T T PERFORMED CYANOCOBA 53727 [facility] JOSLYN 5 DIAGNOSTI DIAGNOSTI VITAMIN CS CS B-12 INCORPORA INCORPORA T T BASIC 43954 [facility] METABOLIC 5 DIAGNOSTI DIAGNOSTI PANEL CS CS CALCIUM INCORPORA INCORPORA TOTAL T T DRUG 27767 [facility] SCREEN 5 DIAGNOSTI DIAGNOSTI QUANTITAT CS CS ANGELIA INCORPORA INCORPORA THEOPHYLL T T INE IRON 07239 [facility] BINDING 5 DIAGNOSTI DIAGNOSTI CAPACITY CS CS INCORPORA INCORPORA T T BLOOD 79202 [facility] COUNT 5 DIAGNOSTI DIAGNOSTI COMPLETE CS CS AUTO&AUTO INCORPORA INCORPORA DIFRNTL T T WBC O2 CONC 1 E1390 [facility] 5 INC INC 85%/>02 [facility]C AT [facility] FLW RATE ALBUTEROL J7620 RELIANT RELIANT TO 2.5 5 PHARMACY PHARMACY MG & SERVICES SERVICES IPRATROPI UM BROM TO 0.5 MG PHRM Q0513 RELIANT RELIANT DISPENSIN 5 PHARMACY PHARMACY G FEE SERVICES SERVICES INHALATIO N RX; PER 30 DAYS O2 CONC 1 E1390 [facility] 5 INC INC 85%/>02 CONC AT [facility] FLW RATE ALBUTEROL J7620 RELIANT RELIANT TO 2.5 5 PHARMACY PHARMACY MG & SERVICES SERVICES IPRATROPI UM BROM TO 0.5 MG PHRM Q0513 RELIANT RELIANT DISPENSIN 5 PHARMACY PHARMACY G FEE SERVICES SERVICES INHALATIO N RX; PER 30 DAYS ADMN SET A7003 [facility], VOL 5 INC INC NONFILTR PNEUMAT NEBULIZR DISPBL O2 CONC 1 E1390 [facility] PORT 5 INC INC 85%/>02 [facility]C AT [facility] FLW RATE ALBUTEROL J7620 RELIANT RELIANT TO 2.5 5 PHARMACY PHARMACY MG & SERVICES SERVICES IPRATROPI UM BROM TO 0.5 MG PHRM Q0513 RELIANT RELIANT DISPENSIN 5 PHARMACY PHARMACY G FEE SERVICES SERVICES INHALATIO N RX; PER 30 DAYS O2 CONC 1 E1390 [facility] [place] 4 INC INC 85%/>02 [facility] AT [facility] FLW RATE IAADIADOO [address] [facility] B[facility] ZAK 4 PRIMARY INFLUENZA CARE CENTER ADMN SET A7005 [facility], W/SM VOL 4 INC INC NONFILTR NEBULIZR NON-DISPB L ALBUTEROL J7620 RELIANT RELIANT TO 2.5 4 PHARMACY PHARMACY MG & SERVICES SERVICES IPRATROPI UM BROM TO 0.5 MG PHRM Q0513 RELIANT RELIANT DISPENSIN 4 PHARMACY PHARMACY G FEE SERVICES SERVICES INHALATIO N RX; PER 30 DAYS O2 CONC 1 E1390 [facility] [place] 4 INC INC 85%/>02 [facility] AT [facility] FLW RATE O2 CONC 1 E1390 [facility], [place] 4 INC INC 85%/>02 CONC AT [facility] FLW RATE ALBUTEROL J7620 RELIANT RELIANT TO 2.5 4 PHARMACY PHARMACY MG & SERVICES SERVICES IPRATROPI UM BROM TO 0.5 MG PHRM Q0513 RELIANT RELIANT DISPENSIN 4 PHARMACY PHARMACY G FEE SERVICES SERVICES INHALATIO N RX; PER 30 DAYS PHRM Q0513 RELIANT RELIANT DISPENSIN 4 PHARMACY PHARMACY G FEE SERVICES SERVICES INHALATIO N RX; PER 30 DAYS ADMN SET A7003 [facility], VOL 4 INC INC NONFILTR PNEUMAT NEBULIZR DISPBL ALBUTEROL J7620 RELIANT RELIANT TO 2.5 4 PHARMACY PHARMACY MG & SERVICES SERVICES IPRATROPI UM BROM TO 0.5 MG O2 CONC 1 E1390 [facility] [place] 4 INC INC 85%/>02 [facility] AT [facility] FLW RATE COLLECTIO 87609 [facility] ZAK N VENOUS 4 [facility] [place] U[facility] O2 CONC 1 E1390 [facility] [place] 4 INC INC 85%/>02 [facility] AT [facility] FLW RATE ALBUTEROL J7620 RELIANT RELIANT TO 2.5 4 PHARMACY PHARMACY MG & SERVICES SERVICES IPRATROPI UM BROM TO 0.5 MG PHRM Q0513 RELIANT RELIANT DISPENSIN 4 PHARMACY PHARMACY G FEE SERVICES SERVICES INHALATIO N RX; PER 30 DAYS O2 CONC 1 E1390 [facility] [place] 4 INC INC 85%/>02 [facility]C AT [facility] FLW RATE ALBUTEROL J7620 RELIANT RELIANT TO 2.5 4 PHARMACY PHARMACY MG & SERVICES SERVICES IPRATROPI UM BROM TO 0.5 MG PHRM Q0513 RELIANT RELIANT DISPENSIN 4 PHARMACY PHARMACY G FEE SERVICES SERVICES INHALATIO N RX; PER 30 DAYS ADMN SET A7003 [facility], VOL 4 INC INC NONFILTR PNEUMAT NEBULIZR DISPBL O2 CONC 1 E1390 [facility], [place] 4 INC INC 85%/>02 CONC AT PRS FLW RATE O2 CONC 1 E1390 [facility], [place] 4 INC INC 85%/>02 CONC AT [facility] FLW RATE ALBUTEROL J7620 RELIANT RELIANT TO 2.5 4 PHARMACY PHARMACY MG & SERVICES SERVICES IPRATROPI UM BROM TO 0.5 MG PHRM Q0513 RELIANT RELIANT DISPENSIN 4 PHARMACY PHARMACY G FEE SERVICES SERVICES INHALATIO N RX; PER 30 DAYS O2 CONC 1 E1390 [facility] DEL PORT 4 INC INC 85%/>02 CONC AT PRS FLW RATE PHRM Q0513 RELIANT RELIANT DISPENSIN 4 PHARMACY PHARMACY G FEE SERVICES SERVICES INHALATIO N RX; PER 30 DAYS ALBUTEROL J7620 RELIANT RELIANT TO 2.5 4 PHARMACY PHARMACY MG & SERVICES SERVICES IPRATROPI UM BROM TO 0.5 MG COLLECTIO 45368 [facility] ZAK N VENOUS 4 [facility] U[facility] ADMN SET A7005 PREET[facility] ÁLVAREZ, W/SM VOL 4 INC INC NONFILTR NEBULIZR NON-DISPB L ALBUTEROL J7620 RELIANT RELIANT TO 2.5 4 PHARMACY PHARMACY MG & SERVICES SERVICES IPRATROPI UM BROM TO 0.5 MG PHRM Q0513 RELIANT RELIANT DISPENSIN 4 PHARMACY PHARMACY G FEE SERVICES SERVICES INHALATIO N RX; PER 30 DAYS O2 CONC 1 E1390 [facility] [place] 4 INC INC 85%/>02 CONC AT PRS FLW RATE O2 CONC 1 E1390 [facility] [place] 4 INC INC 85%/>02 CONC AT PRS FLW RATE PHRM Q0513 RELIANT RELIANT DISPENSIN 4 PHARMACY PHARMACY G FEE SERVICES SERVICES INHALATIO N RX; PER 30 DAYS ALBUTEROL J7620 RELIANT RELIANT TO 2.5 4 PHARMACY PHARMACY MG & SERVICES SERVICES IPRATROPI UM BROM TO 0.5 MG O2 CONC 1 E1390 [facility] [place] [place] PORT 4 INC INC 85%/>02 CONC AT PRS FLW RATE O2 CONC 1 E1390 [facility] [place] 3 INC INC 85%/>02 CONC AT PRS FLW RATE ALBUTEROL J7620 RELIANT RELIANT TO 2.5 3 PHARMACY PHARMACY MG & SERVICES SERVICES IPRATROPI UM BROM TO 0.5 MG PHRM Q0513 RELIANT RELIANT DISPENSIN 3 PHARMACY PHARMACY G FEE SERVICES SERVICES INHALATIO N RX; PER 30 DAYS O2 CONC 1 E1390 [facility] 3 INC INC 85%/>02 CONC AT [facility] FLW RATE O2 CONC 1 E1390 [place] [address] INC INC 85%/>02 CONC AT [facility] FLW RATE PHRM Q0513 RELIANT RELIANT DISPENSIN 3 PHARMACY PHARMACY G FEE SERVICES SERVICES INHALATIO N RX; PER 30 DAYS ALBUTEROL J7620 RELIANT RELIANT TO 2.5 3 PHARMACY PHARMACY MG & SERVICES SERVICES IPRATROPI UM BROM TO 0.5 MG ADMN SET A7003 [facility], VOL 3 INC INC NONFILTR PNEUMAT NEBULIZR DISPBL ADMN SET A7005 [facility], / VOL 3 INC INC NONFILTR NEBULIZR NON-DISPB L PHRM Q0513 RELIANT RELIANT DISPENSIN 3 PHARMACY PHARMACY G FEE SERVICES SERVICES INHALATIO N RX; PER 30 DAYS ALBUTEROL J7620 RELIANT RELIANT TO 2.5 3 PHARMACY PHARMACY MG & SERVICES SERVICES IPRATROPI UM BROM TO 0.5 MG O2 CONC 1 E1390 [facility] 3 INC INC 85%/>02 CONC AT [facility] FLW RATE PHRM Q0513 RELIANT RELIANT DISPENSIN 3 PHARMACY PHARMACY G FEE SERVICES SERVICES INHALATIO N RX; PER 30 DAYS ALBUTEROL J7620 RELIANT RELIANT TO 2.5 3 PHARMACY PHARMACY MG & SERVICES SERVICES IPRATROPI UM BROM TO 0.5 MG O2 CONC 1 E1390 [facility] 3 INC INC 85%/>02 CONC AT [facility] FLW RATE ALBUTEROL J7620 RELIANT RELIANT TO 2.5 3 PHARMACY PHARMACY MG & SERVICES SERVICES IPRATROPI UM BROM TO 0.5 MG PHRM Q0513 RELIANT RELIANT DISPENSIN 3 PHARMACY PHARMACY G FEE SERVICES SERVICES INHALATIO N RX; PER 30 DAYS RADIOLOGI [address]008 [facility] NUVIA EXAMINATI RADIOLOGY ON CHEST ASSOCIAT SINGLE VIEW FRONTAL COLLECTIO 14319 ANNA YANG FERRIS ZAK N VENOUS 3 PRIMARY BLOOD CARE VENIPUNCT CENTER URE BASIC 27266 [facility] QUEST METABOLIC 3 DIAGNOSTI DIAGNOSTI PANEL CS CS CALCIUM TOTAL CULTURE 94905 QUE[facility] QUEST BACTERIAL 3 DIAGNOSTI DIAGNOSTI CS CS QUANTTATI VE COLONY COUNT URINE BLOOD 71462 QUEST QUEST COUNT 3 DIAGNOSTI DIAGNOSTI COMPLETE CS CS AUTO&AUTO DIFRNTL WBC RADIOLOGI 49184 [facility] C EXAM 3 EIDER MAGDALENA CHEST 2 RADIOLOGY VIEWS ASSOCIAT FRONTAL&L ATERAL CUL BACT 44332 QUEST QUEST AEROBIC 3 DIAGNOSTI DIAGNOSTI ADDL CS CS METHS DEFINITIV E EA ISOL URNLS DIP 52004 ANNA YANG HERNANDEZEF CONCHA 3 PRIMARY STICK/TAB CARE LET RGNT CENTER AUTO W/O MICROSCOP Y CULTURE 77149 QUEST QUEST BCT 3 DIAGNOSTI DIAGNOSTI ISOL&PRSM CS CS PTV ID ISOLATE EA URINE CULTURE 84994 QUEST QUEST BACTERIAL 3 DIAGNOSTI DIAGNOSTI CS CS QUANTTATI VE COLONY COUNT URINE SUSCEPTIB 01547 QUEST QUEST LTY STDY 3 DIAGNOSTI DIAGNOSTI ANTIMICRB CS CS IAL MICRO/AGA R DILUTJ AMBULANCE A0429 [facility] SERVICE 3 [facility] BLS EMERGENCY AMBULANCE AMBULANCE TRANSPORT GROUND A0425 [facility] MILEAGE 3 MINESH CO MINESH CO PER STATUTE AMBULANCE AMBULANCE MILE O2 CONC 1 E1390 PREETI, PREETI, SHARA [place] 3 INC INC 85%/>02 CONC AT [facility] FLW RATE PHRM Q0513 RELIANT RELIANT DISPENSIN [...] PER 30 DAYS O2 CONC 1 E1390 [facility] 3 INC INC 85%/>02 CONC AT PRS FLW RATE URNLS DIP 09842 [facility] [place] ZAK 3 PRIMARY STICK/TAB CARE LET RGNT CENTER AUTO W/O MICROSCOP Y CT THORAX 51864 [facility] 3 NUVIA W/CONTRAS RADIOLOGY T ASSOCIAT MATERIAL URNLS DIP 76661 [facility] [place] ZAK 3 PRIMARY STICK/TAB CARE LET RGNT CENTER NON-AUTO W/O MICRSCP RADIOLOGI 42495 [facility] C EXAM 3 NUVIA CHEST 2 RADIOLOGY VIEWS ASSOCIAT FRONTAL&L ATERAL CULTURE 34849 [facility] QUE[facility] BACTERIAL 3 DIAGNOSTI DIAGNOSTI CS CS QUANTTATI VE COLONY COUNT URINE CUL BACT 66695 [facility] AEROBIC 3 DIAGNOSTI DIAGNOSTI ADDL CS CS METHS DEFINITIV E EA ISOL GROUND A0425 [facility] MILEAGE 3 MINESH CO MINESH CO PER STATUTE AMBULANCE AMBULANCE MILE AMB A0427 [facility] SERVICE 3 MINESH CO MINESH CO ALS EMERGENCY AMBULANCE AMBULANCE TRANSPORT LEVEL 1 SUSCEPTIB 16375 [facility] QUEST LTY STDY 3 DIAGNOSTI DIAGNOSTI ANTIMICRB CS CS IAL MICRO/AGA R DILUTJ CULTURE 80768 [facility] BCT 3 DIAGNOSTI DIAGNOSTI ISOL&PRSM CS CS PTV ID ISOLATE EA URINE O2 CONC 1 E1390 [facility] 3 INC INC 85%/>02 CONC AT PRS FLW RATE ALBUTEROL J7620 RELIANT RELIANT TO 2.5 3 PHARMACY PHARMACY MG & SERVICES SERVICES IPRATROPI UM BROM TO 0.5 MG ADMN SET A7003 [facility], VOL 3 INC INC NONFILTR PNEUMAT NEBULIZR DISPBL PHRM Q0513 RELIANT RELIANT DISPENSIN 3 PHARMACY PHARMACY G FEE SERVICES SERVICES INHALATIO N RX; PER 30 DAYS O2 CONC 1 E1390 [facility] 3 INC INC 85%/>02 CONC AT PRS FLW RATE NEBULIZER E0570 [facility], WITH 3 INC INC COMPRESSO R ALBUTEROL J7620 RELIANT RELIANT TO 2.5 3 PHARMACY PHARMACY MG & SERVICES SERVICES IPRATROPI UM BROM TO 0.5 MG PHRM Q0513 RELIANT RELIANT DISPENSIN 3 PHARMACY PHARMACY G FEE SERVICES SERVICES INHALATIO N RX; PER 30 DAYS COLLECTIO 85252 AN[facility] [place] ZAK N VENOUS 3 [facility]IMARY [facility] [place] [facility] O2 [facility]C 1 E1390 [facility] 3 INC INC 85%/>02 CONC AT PRS FLW RATE NEBULIZER E0570 [facility], WITH 3 INC INC COMPRESSO R PHRM Q0513 RELIANT RELIANT DISPENSIN 3 PHARMACY PHARMACY G FEE SERVICES SERVICES INHALATIO N RX; PER 30 DAYS ALBUTEROL J7620 RELIANT RELIANT TO 2.5 3 PHARMACY PHARMACY MG & SERVICES SERVICES IPRATROPI UM BROM TO 0.5 MG O2 CONC 1 E1390 [facility] 3 INC INC 85%/>02 CONC AT PRS FLW RATE NEBULIZER E0570 [facility], WITH 3 INC INC COMPRESSO [...] PORT 2 INC INC 85%/>02 CONC AT [facility] FLW RATE ALBUTEROL J7620 RELIANT RELIANT TO 2.5 2 PHARMACY PHARMACY MG & SERVICES SERVICES IPRATROPI UM BROM TO 0.5 MG PHRM Q0513 RELIANT RELIANT DISPENSIN 2 PHARMACY PHARMACY G FEE SERVICES SERVICES INHALATIO N RX; PER 30 DAYS NEBULIZER E0570 [facility], WITH 2 INC INC COMPRESSO R O2 CONC 1 E1390 [facility], [facility] PORT 2 INC INC 85%/>02 CONC AT [facility] FLW RATE NEBULIZER E0570 [facility], WITH 2 INC INC COMPRESSO R ALBUTEROL J7620 RELIANT RELIANT TO 2.5 2 PHARMACY PHARMACY MG & SERVICES SERVICES IPRATROPI UM BROM TO 0.5 MG ADMN SET A7003 [facility], VOL 2 INC INC NONFILTR PNEUMAT NEBULIZR DISPBL PHRM Q0513 RELIANT RELIANT DISPENSIN 2 PHARMACY PHARMACY G FEE SERVICES SERVICES INHALATIO N RX; PER 30 DAYS O2 CONC 1 E1390 [facility] 2 INC INC 85%/>02 CONC AT [facility] FLW RATE NEBULIZER E0570 [facility], WITH 2 INC INC COMPRESSO R RADIOLOGI 14337 [facility] C EXAM 2 W W CHEST 2 REGIONAL REGIONAL VIEWS MEDICAL MEDICAL FRONTAL&L ATERAL SBSQ 22435 [facility] 2 W [facility] CARE/DAY HOSPITALI [address] MINUTES RADIOLOGI 35389 [facility] C EXAM 2 EIDER MAGDALENA CHEST 2 RADIOLOGY VIEWS ASSOCIAT FRONTAL&L ATERAL CUL BACT 17645 QUEST QUEST AEROBIC 2 DIAGNOSTI DIAGNOSTI ADDL CS CS METHS DEFINITIV E EA ISOL CULTURE 98712 QUEST QUEST BACTERIAL 2 DIAGNOSTI DIAGNOSTI CS CS QUANTTATI VE COLONY COUNT URINE URNLS DIP 63391 [facility] [place] ZAK 2 PRIMARY STICK/TAB CARE LET RGNT CENTER AUTO W/O MICROSCOP Y ALBUTEROL J7620 RELIANT RELIANT TO 2.5 2 PHARMACY PHARMACY MG & SERVICES SERVICES IPRATROPI UM BROM TO 0.5 MG CULTURE 32732 QUEST QUEST BCT 2 DIAGNOSTI DIAGNOSTI ISOL&PRSM CS CS PTV ID ISOLATE EA URINE PHRM Q0513 RELIANT RELIANT DISPENSIN 2 PHARMACY PHARMACY G FEE SERVICES SERVICES INHALATIO N RX; PER 30 DAYS SUSCEPTIB 95375 QUEST QUEST LTY STDY 2 DIAGNOSTI DIAGNOSTI ANTIMICRB CS CS IAL MICRO/AGA R DILUTJ O2 CONC 1 E1390 [facility], [facility] PORT 2 INC INC 85%/>02 CONC AT PRS FLW RATE NEBULIZER E0570 [facility], WITH 2 INC INC COMPRESSO R ADMN SET A7003 [facility], VOL 2 INC INC NONFILTR PNEUMAT NEBULIZR DISPBL LIPID 24473 QUEST QUEST PANEL 2 DIAGNOSTI DIAGNOSTI CS CS PHRM Q0513 RELIANT RELIANT DISPENSIN 2 PHARMACY PHARMACY G FEE SERVICES SERVICES INHALATIO N RX; [place] [address] [place] [address] QUEST QUEST THYROID 2 DIAGNOSTI DIAGNOSTI STIMULATI CS CS NG HORMONE TSH COLLECTIO 73440 ANNA CO [place] CRESPO N VENOUS 2 PRIMARY BLOOD [facility] URE COMPREHEN 43064 QUEST QUEST SIVE 2 DIAGNOSTI DIAGNOSTI METABOLIC CS CS PANEL ALBUTEROL J7620 RELIANT RELIANT TO 2.5 2 PHARMACY PHARMACY MG & SERVICES SERVICES IPRATROPI UM BROM TO 0.5 MG O2 CONC 1 E1390 [facility], DEL PORT 2 INC INC 85%/>02 CONC AT PRS FLW RATE NEBULIZER E0570 [facility], WITH 2 INC INC COMPRESSO R PHRM Q0513 RELIANT RELIANT DISPENSIN 2 PHARMACY PHARMACY G FEE SERVICES SERVICES INHALATIO N RX; PER 30 DAYS ALBUTEROL J7620 RELIANT RELIANT TO 2.5 2 PHARMACY PHARMACY MG & SERVICES SERVICES IPRATROPI UM BROM TO 0.5 MG NEBULIZER E0570 [facility], WITH 2 INC INC COMPRESSO R PHRM Q0513 RELIANT RELIANT DISPENSIN 2 PHARMACY PHARMACY G FEE SERVICES SERVICES INHALATIO N RX; PER 30 DAYS ALBUTEROL J7620 RELIANT RELIANT TO 2.5 2 PHARMACY PHARMACY MG & SERVICES SERVICES IPRATROPI UM BROM TO 0.5 MG ADMN SET A7005 [facility], W/SM VOL 2 INC INC NONFILTR NEBULIZR NON-DISPB L NEBULIZER E0570 [facility], WITH 2 INC INC COMPRESSO R NEBULIZER E0570 [facility], WITH 2 INC INC COMPRESSO R NONINVASI 95354 ANNA SORIA [place] ZAK VE 2 PRIMARY EAR/PULSE CARE OXIMETRY CENTER SINGLE DETER ADMN SET A7003 [facility], SM VOL 2 INC INC NONFILTR PNEUMAT NEBULIZR DISPBL PHARM G0333 RELIANT RELIANT DISPEN 2 PHARMACY PHARMACY FEE INHAL SERVICES SERVICES RX; INITIAL 30-DAY SUPPLY ALBUTEROL J7620 RELIANT RELIANT TO 2.5 2 PHARMACY PHARMACY MG & SERVICES SERVICES IPRATROPI UM BROM TO 0.5 MG CULTURE 42567 LABORATOR LABORATOR BACTERIAL 2 Y & Y & BIODIAGNO BIODIAGNO QUANTTATI STICTaylor HANNA VE COLONY COUNT URINE CUL BACT 57226 LABORATOR LABORATOR AEROBIC 2 Y & Y & ADDL BIODIAGNO BIODIAGNO METHS STIC STICS DEFINITIV E EA ISOL URNLS DIP 77192 ANNA CO POCZATEK 2 PRIMARY PAT STICK/TAB CARE LET RGNT CENTER AUTO W/O MICROSCOP Y SUSCEPTIB 89397 LABORATOR LABORATOR LTY STDY 2 Y & Y & ANTIMICRB BIODIAGNO BIODIAGNO IAL STICTaylor HANNA MICRO/AGA R DILUTJ LIPID 35413 LABORATOR LABORATOR PANEL 1 Y & Y & BIODIAGNO BIODIAGNO [facility]aylor [facility] LIPOPROTE 79321 LABORATOR LABORATOR IN DIRECT 1 Y & Y & BIODIAGNO BIODIAGNO MEASUREME STICS [place] [address] LABORATOR LABORATOR THYROID 1 Y & Y & STIMULATI BIODIAGNO BIODIAGNO NG STICS STICS HORMONE TSH COMPREHEN 46813 LABORATOR LABORATOR SIVE 1 Y & Y & METABOLIC BIODIAGNO BIODIAGNO PANEL STICS STICS COLLECTIO 00907 ANNA HI [place] ZAK N VENOUS 1 PRIMARY BLOOD CARE VENIPUNCT CENTER URE COLLECTIO 51765 AN[facility] CO [place] ZAK N VENOUS 1 PRIMARY BLOOD CARE VENIPUNCT CENTER URE DRUG 76609 LABORATOR LABORATOR SCREEN 1 Y & Y & QUANTITAT BIODIAGNO BIODIAGNO ANGELIA STICS STICS THEOPHYLL INE LIPID 01109 LABORATOR LABORATOR PANEL 1 Y & Y & BIODIAGNO BIODIAGNO STICS STICS LIPOPROTE 82999 LABORATOR LABORATOR IN DIRECT 1 Y & Y & BIODIAGNO BIODIAGNO MEASUREME STICS STICS NT LDL CHOLESTER OL IRON 57675 LABORATOR LABORATOR BINDING 1 Y & Y & CAPACITY BIODIAGNO BIODIAGNO STICS STICS BLOOD 22685 LABORATOR LABORATOR COUNT 1 Y & Y & COMPLETE BIODIAGNO BIODIAGNO AUTO&AUTO STICS STICS DIFRNTL WBC COMPREHEN 28639 LABORATOR LABORATOR SIVE 1 Y & Y & METABOLIC BIODIAGNO BIODIAGNO PANEL STICS STICS COLLECTIO 85471 ANNA [facility] ZAK N VENOUS 1 PRIMARY BLOOD [place] [address] LABORATOR LABORATOR FERRITIN 1 Y & Y & BIODIAGNO BIODIAGNO STICS STICS CYANOCOBA 16941 LABORATOR LABORATOR JOSLYN 1 Y & Y & VITAMIN BIODIAGNO BIODIAGNO B-12 [place] [address] LABORATOR LABORATOR THYROID 1 Y & Y & STIMULATI BIODIAGNO BIODIAGNO [place] [address] LABORATOR LABORATOR IRON 1 Y & Y & BIODIAG[place] [address] LABORATOR LABORATOR FREE 1 Y & Y & THYROXINE BIODIAGNO BIODIAGNO STICS STICS CUL BACT 93789 LABORATOR LABORATOR AEROBIC 0 Y & Y & ADDL BIODIAGNO BIODIAGNO METHS STICS STICS DEFINITIV E EA ISOL CULTURE 17051 LABORATOR LABORATOR BACTERIAL 0 Y & Y & BIODIAGNO BIODIAGNO QUANTTATI STICS STICS VE COLONY COUNT URINE SUSCEPTIB 04785 LABORATOR LABORATOR LTY STDY 0 Y & Y & ANTIMICRB BIODIAGNO BIODIAGNO IAL STICS STICS MICRO/AGA R DILUTJ INJECTION J1040 [facility] M[facility] DNISOLONE PSC ACETATE 80 MG IIV3 15247 [facility] VACCINE 0 [facility] SPLIT [facility] VIRUS 0.5 PSC ML DOSAGE IM USE THERAPEUT 90607 [facility] IC 0 [facility] PROPHYLAC [facility] TIC/DX PSC INJECTION SUBQ/IM ADMINISTR G0008 [facility] ATION OF 0 [facility] INFLUENZA [facility] VIRUS PSC VACCINE THERAPEUT 95888 [facility] IC 0 [facility] PROP[facility] TIC/DX PSC INJECTION SUBQ/IM INJECTION J1030 [facility] 0 [facility] METHYLPRE [facility] DNISOLONE PSC ACETATE 40 MG COMPREHEN 50009 [facility] SIVE 0 CLINIC CLINIC METABOLIC LABORATOR LABORATOR PANEL Y Y COLLECTIO 45432 [facility] N VENOUS 0 CLINIC CLINIC BLOOD LABORATOR [place]OR[place] [address] [facility] THYROID 0 CLINIC CLINIC STIMULATI LABORATOR [place]OR[place] [address] [facility] FREE 0 CLINIC CLINIC THYROXINE LABORATOR LABORATOR Y Y DRUG 48390 [facility] SCREEN 0 CLINIC CLINIC QUANTITAT LABORATOR LABORATOR ANGELIA Y Y THEOPHYLL INE LIPID 81801 [facility] PANEL 0 CLINIC CLINIC LABORATOR LABORATOR Y Y LIPID 59240 [facility] [place] [address] [facility] THYROID 0 CLINIC CLINIC STIMULATI LABORATOR [place] [address] [facility] FREE 0 CLINIC CLINIC THYROXINE LABORATOR LABORATOR Y Y COLLECTIO 43680 [facility] N VENOUS 0 CLINIC CLINIC BLOOD LABORATOR LABORATOR VENIPUNCT Y Y URE COMPREHEN 38928 [facility] SIVE 0 CLINIC CLINIC METABOLIC LABORATOR LABORATOR PANEL Y Y RADIOLOGI 15174 [facility] [place] Ana JEFFERSON EXAM 0 RADIOLOGY HANNAH A CHEST 2 VIEWS FRONTAL&L ATERAL CT THORAX 90935 [facility] [place] PIERRE, 0 RADIOLOGY GAIL L W/CONTRAS T MATERIAL ADMN SET A7005 [facility] W/SM VOL 9 PRODUCTS PRODUCTS NONFILTR [employer] NEBULIZR NON-DISPB L ALBUTEROL J7620 [facility] TO 2.5 9 PHARMACY PHARMACY MG & #10-1569 #10-1569 IPRATROPI UM BROM TO 0.5 MG PHARM G0333 [facility] DISPEN 9 PHARMACY PHARMACY FEE INHAL #10-1569 #10-1569 RX; INITIAL 30-DAY SUPPLY NEBULIZER E0570 [facility] PEDIATRIC WITH 9 PRODUCTS PRODUCTS COMPRESSO [employer] R LIPID 36731 [facility] PANEL 9 [place] [employer] [facility] [place] [address] [facility] FREE 9 [facility] [employer] [facility] [place] [address] [facility] THYROID 9 [facility] STIMULATI NG HORMONE TSH COMPREHEN 97783 [facility] SIVE 9 [facility] METABOLIC PANEL RADIOLOGI 28161 Ana [place] EXAM 9 EMERGENCY COLTON L CHEST 2 SERVICES VIEWS FRONTAL&L ASSOCIATE ATERAL S RADEX HIP 52412 ANNA OWENS, 9 [facility] COMPLETE MINIMUM 2 VIEWS LIPID 20981 [facility] PANEL 8 [employer] [facility] BLOOD 34636 [facility] COUNT 8 [facility] COMPLETE AUTO&[place] [address] [facility] THYROID 8 [facility] STIMULATI NG HORMONE TSH BASIC 54110 [facility] METABOLIC 8 [place] INC PANEL CALCIUM TOTAL RADIOLOGI 89808 [facility] EXAM 8 [place] JR, CHEST 2 IMAGING ANNITA R VIEWS INC FRONTAL&L ATERAL INJECTION J0696 ANNA SORIA HARRISON, 8 PRIMARY PATITO G [facility] PER 250 MG RADIOLOGI 24037 [facility] Y[facility], C EXAM 8 [place] ESTELA B CHEST 2 IMAGING VIEWS INC FRONTAL&L ATERAL Encounters Encounter Start End Date Code Location Performer Type Date OFFICE 78482 MAUREEN MCDANIEL OUTPATIEN 7 7 PHYSICIAN T NEW 30 PRACTICE MINUTES [facility] GANESH - 7 7 W [facility] GANESH - 7 7 W [facility] MEDICAL [facility]36 [facility] 7 7 PHYSICIAN T NEW 10 S GROUP [facility] VIVIANE - 7 7 [facility] OUT[facility]IEN [facility] T OFFICE 79823 VIVIANE OUTPATIEN 7 7 [facility] T NEW 10 INC [facility] VIVIANE - 7 7 [facility] OUTPATIEN [facility] VIVIANE - 7 7 [facility] OUTPATIEN [facility] T OFFICE 89765 ANNA SORIA OUTPATIEN 6 6 FAMILY T VISIT HEALTH 15 CTR MINUTES EMERGENCY 59334 [facility] DEPT 6 6 IDALIA VISIT EMERGENCY HIGH PHYS SEVERITY& THREAT [facility] GANESH - 6 6 W [facility] MEDICAL EMERGENCY 66119 GANESH 6 6 W [facility] VISIT MEDICAL HIGH/URGE NT SEVERITY OFFICE 40592 ANNA CO OUTPATIEN 6 6 FAMILY T VISIT HEALTH 15 CTR MINUTES OFFICE 83090 ANNA CO OUTPATIEN 6 6 FAMILY T VISIT HEALTH 15 CTR MINUTES OFFICE 11500 ANNA CO OUTPATIEN 5 5 FAMILY T VISIT HEALTH 15 CTR MINUTES OFFICE 99623 ANNA CO OUTPATIEN 5 5 FAMILY T VISIT HEALTH 15 CTR MINUTES EMERGENCY 62387 [facility] DEPT 5 5 IDALIA DEISY VISIT EMERGENCY HIGH PHYS SEVERITY& THREAT FUN EMERGENCY 50898 [facility] DEPT 5 5 IDALIA DEISY VISIT EMERGENCY HIGH PHYS SEVERITY& THREAT [facility] MEAWVIE - 5 5 W [facility] MEDICAL OFFICE 37959 ANNA CO OUTPATIEN 5 5 PRIMARY T VISIT CARE 15 CENTER MINUTES EMERGENCY 06240 [facility] 5 5 IDALIA CHR DEPARTMEN EMERGENCY T VISIT PHYS HIGH/URGE NT SEVERITY OFFICE 79673 ANNA CO OUTPATIEN 5 5 PRIMARY T VISIT CARE 15 CENTER MINUTES OFFICE 49847 ANNA CO OUTPATIEN 4 4 PRIMARY T VISIT CARE 15 CENTER MINUTES OFFICE 97698 ANNA CO OUTPATIEN 4 4 PRIMARY T VISIT CARE 15 CENTER MINUTES EMERGENCY 67410 [facility] ID[place]IA ROBERT DEPARTMEN EMERGENCY T VISIT PHYS HIGH/URGE NT SEVERITY OFFICE 59657 ANNA CO OUTPATIEN 4 4 PRIMARY T VISIT CARE 15 CENTER MINUTES OFFICE 76703 ANNA CO OUTPATIEN 4 4 PRIMARY T VISIT CARE 15 CENTER MINUTES OFFICE 87222 ANNA CO OUTPATIEN 4 4 PRIMARY T VISIT CARE 15 CENTER MINUTES EMERGENCY 94893 DONA SAMS DEPT 3 3 EMERGENCY VISIT SERVICES HIGH SEVERITY& THREAT FUNCJ OFFICE 79538 ANNA CO OUTPATIEN 3 3 PRIMARY T VISIT CARE 15 CENTER MINUTES EMERGENCY 18078 DONA WELLS DEPT 3 3 EMERGENCY CHR VISIT SERVICES HIGH SEVERITY& THREAT FUNCJ OFFICE 62313 ANNA CO OUTPATIEN 3 3 PRIMARY T VISIT CARE 15 CENTER MINUTES OFFICE 42239 ANNA CO OUTPATIEN 3 3 PRIMARY T VISIT CARE 15 CENTER MINUTES OFFICE 27218 ANNA CO OUTPATIEN 3 3 PRIMARY T VISIT CARE 15 CENTER MINUTES EMERGENCY 00540 DONA HERNANDEZ 3 3 EMERGENCY ROBERT DEPARTMEN SERVICES T VISIT HIGH/URGE NT SEVERITY OFFICE 07878 ANNA CO OUTPATIEN 3 3 PRIMARY T VISIT CARE 15 CENTER MINUTES OFFICE 81089 ANNA CO OUTPATIEN 3 3 PRIMARY T VISIT CARE 15 CENTER MINUTES OFFICE 65517 ANNA CO OUTPATIEN 2 2 PRIMARY T VISIT CARE 15 CENTER MINUTES OFFICE 93846 ANNA CO OUTPATIEN 2 2 PRIMARY T VISIT CARE 25 CENTER [facility]UT[facility] W OUTPATIEN REGIONAL T MEDICAL OFFICE 49823 ANNA CO OUTPATIEN 2 2 PRIMARY T VISIT CARE 10 CENTER MINUTES EMERGENCY 20030 DONA WELLS DEPT 2 2 EMERGENCY CHR VISIT SERVICES HIGH SEVERITY& THREAT FUNCJ OFFICE 15791 ANNA CO OUTPATIEN 2 2 PRIMARY T VISIT CARE 15 CENTER MINUTES OFFICE 90284 ANNA CO OUTPATIEN 2 2 PRIMARY T VISIT CARE 15 CENTER MINUTES OFFICE 57601 ANNA CO OUTPATIEN 2 2 PRIMARY T VISIT CARE 25 CENTER MINUTES OFFICE 31825 ANNA CO OUTPATIEN 2 2 PRIMARY T VISIT CARE 25 CENTER MINUTES OFFICE 24300 ANNA CO OUTPATIEN 2 2 PRIMARY T VISIT CARE 15 CENTER MINUTES OFFICE 71087 ANNA CO OUTPATIEN 2 2 PRIMARY T VISIT CARE 15 CENTER MINUTES OFFICE 11205 ANNA CO OUTPATIEN 2 2 PRIMARY T VISIT CARE 15 CENTER MINUTES OFFICE 13214 ANNA CO OUTPATIEN 2 2 PRIMARY T VISIT CARE 15 CENTER MINUTES OFFICE 71102 ANNA CO OUTPATIEN 1 1 PRIMARY T VISIT CARE 15 CENTER MINUTES OFFICE 63749 ANNA CO [place] ZAK OUTPATIEN 1 1 PRIMARY T VISIT CARE 15 CENTER MINUTES OFFICE 53150 ANNA CO OUTPATIEN 1 1 PRIMARY T VISIT CARE 10 CENTER MINUTES OFFICE 26337 ANNA CO OUTPATIEN 1 1 PRIMARY T VISIT CARE 15 CENTER MINUTES OFFICE 76732 [facility] OUTPATIEN 0 0 [place] [facility] 15 PSC MINUTES OFFICE 39546 NEW OUTPATIEN 0 0 [place] [facility] 15 PSC MINUTES OFFICE 04151 [facility], OUTPATIEN 0 0 [place] JACLYN R T VISIT CLINIC 15 PSC MINUTES OFFICE 73416 [facility] [place], OUTPATIEN 0 0 [place] JACLYN R T VISIT CLINIC 15 PSC MINUTES OFFICE 58805 [facility], OUTPATIEN 0 0 [place] JACLYN R T VISIT CLINIC 15 PSC MINUTES OFFICE 92757 [facility] [place], OUTPATIEN 0 0 [place] JACLYN R T NEW 20 CLINIC MINUTES PSC OFFICE 20992 ANNA CO OUTPATIEN 9 9 PRIMARY T VISIT CARE 15 CENTERINC MINUTES CLINIC, ANNA CO FREE 9 9 [facility] OFFICE 93149 ANNA CO OUTPATIEN 9 9 PRIMARY T VISIT CARE 15 CENTERINC MINUTES CLINIC, ANNA CO FREE 9 9 [facility] CLINIC, ANNA CO FREE 9 9 [facility] OFFICE 03953 ANNA CO OUTPATIEN 9 9 PRIMARY T VISIT CARE 15 CENTERINC MINUTES CLINIC, ANNA CO FREE 9 9 [facility] OFFICE 13116 ANNA CO OUTPATIEN 9 9 PRIMARY T VISIT CARE 15 CENTERINC MINUTES CLINIC, ANNA CO FREE 9 9 [facility] OFFICE 45059 ANNA CO OUTPATIEN 9 9 PRIMARY T VISIT CARE 15 CENTERINC MINUTES EMERGENCY 01397 DONA CALLES, DEPT 9 9 EMERGENCY COLTON L VISIT SERVICES HIGH SEVERITY& ASSOCIATE THREAT S FUN CLINIC, ANNA CO FREE 9 9 [facility] OFFICE 39891 ANNA CO OUTPATIEN 9 9 PRIMARY T VISIT CARE 25 CENTERINC MINUTES OFFICE 11145 ANNA SORIA POCZAALEK, OUTPATIEN 8 8 PRIMARY PARRISH S T VISIT CARE 15 CENTERINC MINUTES OFFICE 27911 ANNA SORIA POCZATEK, OUTPATIEN 8 8 PRIMARY PARRISH S T VISIT CARE 15 CENTERINC MINUTES OFFICE 97255 FANY GREEN 8 8 PRIMARY PATITO G T VISIT CARE 25 CENTERINC MINUTES
--- OUTSIDE RECORDS SUMMARY | 2017-08-26 09:15 | External Medical Summary Rpt | CCD ---
Author Author , KIRIT BETH Address Unknown Phone [email or web address] Care Team Providers Care Factory Lay Out Engineer Name Role Phone JONAS MCDANIEL Unavailable Unavailable AWOSIKA, AWOSIKA Unavailable Unavailable AWOSIKA, AWOSIKA Unavailable Unavailable SAM, SAM Unavailable Unavailable [facility], [facility] GAIL PIERRE, IGNACIO, Unavailable Unavailable GAIL HERNANDEZ IGN, Unavailable Unavailable BACILIO SOMMERS Unavailable Unavailable MONICA TANG, Unavailable Unavailable MONICA OWENS JR, ANNITA Unavailable Unavailable RFIFI JR, ANNITA R GUTTI USH, GUTTI USH Unavailable Unavailable GUTTIJACLYN R, GUTTI, Unavailable Unavailable JACLYN R ZHANE NICHOLS, Unavailable Unavailable ZHANE PHELAN, Unavailable Unavailable ZHANE MONTEZ JENNIFER K HARPER, JASON A, Unavailable Unavailable [facility] Unavailable Unavailable INC, [facility] BARRINGTON ZAK, BARRINGTON ZAK Unavailable Unavailable [facility], Unavailable Unavailable [facility] PITER LOZADA Unavailable Unavailable [facility], [facility] Unavailable Unavailable [facility]INGS, [facility], Unavailable Unavailable [facility] & Unavailable Unavailable [facility] & Unavailable Unavailable [facility] JERRY EDWARDS Unavailable Unavailable [facility] Un[facility] Un[facility]ORY, [facility], Unavailable Unavailable [facility], Unavailable Unavailable [facility] Unavailable Unavailable SERVICES, [facility] Unavailable Unavailable AMBULANCE, [facility] Unavailable Unavailable [facility], [facility] Unavailable Unavailable ASSOCIAT, [facility] Unavailable Unavailable HOSP[facility]IST, [facility] Unavailable Unavailable MEDICAL, [facility] Unavailable [facility]available MEDICAL, [facility] FRANCISCO JAVIER HUDSON, FRANCISCO JAVIER Unavailable Unavailable [facility] Unavailable Unavailable [facility], [facility] Unavailable Unavailable LLC, [facility] PAT, Unavailable Unavailable [facility], PARRISH S, Unavailable Unavailable [facility], PARRISH S PORNOY ROBERT, PORNOY Unavailable Unavailable ROBERT HARRISON, PATITO G, Unavailable Unavailable HARRISON, PATITO G [facility], Unavailable Unavailable [facility] Unavailable Unavailable INCORPORAT, [facility] Unavailable Unavailable INCORPORAT, [facility] Unavailable Unavailable SERVICES[facility] Unavailable Unavailable SERVICES, [facility] COLTON CALLES, Unavailable Unavailable COLTON CALLES ROBERT B, Unavailable Unavailable ESTELA YO [facility] Unavailable Unavailable EMERGENCY PHYS, [facility] MCGUIRE KER, MCGUIRE KER Unavailable Unavailable [facility], Unavailable Unavailable [facility] Unavailable Unavailable #[id number], [facility] #[id number] CHARLES GUTIERREZ, Unavailable Unavailable CHARLES OLIVAS, KYRA Unavailable Unavailable DEISY Purpose Continuity of Care Document - 12-02-2007 through 2016 Problems Code Diagnosis DOS Provider Status J3489 OTHER 04-06-2017 [facility] SPECIFIED PHYSICIAN DISORDERS PRACTICE L NOSE AND NASAL SINUSES Z9981 DEPENDENCE 04-06-2017 [facility] ON PHYSICIAN SUPPLEMENTA PRACTICE L L OXYGEN 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 [facility] SIS UNS W/O REGIONAL THYROTOXIC MEDICAL CRISIS/STOR M B34283 COMBINED 02-09-2017 [facility] FORMS OF REGIONAL AGE-RELATED MEDICAL CATARACT RIGHT EYE H269 UNSPECIFIED 02-09-2017 [facility] CATARACT [facility] MEDICAL J449 CHRONIC 02-09-2017 [facility] OBSTRUCTIVE REGIONAL PULMONARY MEDICAL DISEASE UNS K219 GASTRO-ESOP 02-09-2017 [facility] H REFLUX REGIONAL DISEASE MEDICAL WITHOUT ESOPHAGITIS [id number] DERMATOCHAL 01-26-2017 [facility] ASIS OF UNS REGIONAL EYE UNS MEDICAL EYELID B37655 COMBINED 01-26-2017 [place] [facility] CATARACT LEFT EYE I92071 COMBINED 01-26-2017 [facility] FORMS OF REGIONAL AGE-RELATED MEDICAL CATARACT BILATERAL H538 OTHER 01-26-2017 [facility] VISUAL REGIONAL DISTURBANCE MEDICAL S J00 ACUTE 01-22-2017 [facility] NASOPHARYNG PHYSICIANS ITIS COMMON GROUP COLD J310 CHRONIC 01-22-2017 [facility] RHINITIS PHYSICIANS GROUP J342 DEVIATED 01-22-2017 [facility] NASAL PHYSICIANS SEPTUM GROUP Z75900 PERSONAL 01-18-2017 [facility] NICOTINE INC DEPENDENCE [id number] NONEXUDAT 12-16-2016 [facility] AGE-REL MAC DEGEN RUFUS EARLY DRY STAGE J984 OTHER 11-13-2016 [facility] DISORDERS [facility] OF LUNG INC R0989 OTH SPEC SX 11-13-2016 [facility] INVLV THE INC [...] HEALTH CTR WITH HYPOXIA R5381 OTHER 12-11-2015 [facility] R609 EDEMA 12-11-2015 [facility] UNSPECIFIED N EMERGENCY PHYS Z6825 BODY MASS 12-11-2015 [facility] INDEX BMI REGIONAL 25.0-25.9 MEDICAL ADULT Z7982 PENITENTIARY 12-11-2015 [facility] CURRENT USE REGIONAL OF [place] MEDICAL D28300 PERSONAL 12-11-2015 [facility] HISTORY OF REGIONAL URINARY [...] CTR S TISSUE UNS J9600 ACUTE 08-11-2015 [facility] RESPIRATORY HOSPITALIST FAIL UNS HYPOXIA/HYP ERCAPNIA J9690 RESP FAIL 08-07-2015 [facility] UNS UNS N EMERGENCY WHETHER PHYS W/HYPOXIA/H YPERCAPNIA R0602 SHORTNESS 08-07-2015 [place] BREATH [facility] ASSOC[facility]AT R079 CHEST PAIN [facility]OC[facility]AT R0902 HYPOXEMIA 08-07-2015 [facility] N EMERGENCY PHYS N390 URINARY 08-04-2015 [facility] TRACT N EMERGENCY INFECTION PHYS SITE NOT SPECIFIED Z720 TOBACCO USE 08-04-2015 [facility] Z8541 PERSONAL 08-04-2015 [facility] MALIGNANT MEDICAL NEOPLASM CERVIX UTERI 5950 ACUTE 08-01-2015 [facility]STITIS [facility] 5990 URINARY 07-29-2015 [facility] TRACT N EMERGENCY INFECTION PHYS SITE NOT SPECIFIED 7881 DYSURIA 07-29-2015 [facility] N EMERGENCY PHYS 496 CHRONIC 07-25-2015 [facility] OBSTRUCTION SERVICES NEC 2449 UNSPECIFIED 02-06-2015 [facility] HYPOTHYROID INCORPORAT ISM 2689 UNSPECIFIED 02-06-2015 [facility] V[facility] D [facility] DEFICIENCY INCORPORAT 2724 OTHER AND 02-06-2015 [facility] INCORPORAT HYPERLIPIDE DAMION 2859 UNSPECIFIED 02-06-2015 [facility] ANEMIA [facility] INCORPORAT 3899 UNSPECIFIED 02-06-2015 [facility] LOSS INCORPORAT 45203 OBSTRUCTIVE 02-06-2015 [facility] BRONCHITIS INCORPORAT WITHOUT EXACERBAT 83694 UNSPECIFIED 02-06-2015 [facility] DISTURBANCE INCORPORAT 62966 OTHER 02-06-2015 [facility] FATIGUE INCORPORAT 4878 INFLUENZA 10-19-2014 [facility] WITH OTHER PRIMARY MANIFESTATI CARE CENTER ONS 4618 OTHER ACUTE 07-10-2014 [facility] SINUSITIS [facility] V5869 LONG-TERM 07-06-2014 [facility] (CURRENT) PRIMARY USE OF CARE CENTER OTHER MEDICATIONS 50302 OBSTRUCTIVE 05-30-2013 [facility]RON[facility] BRONCHITIS SERVICES WITH EXACERBATIO N 04446 CHEST PAIN 05-30-2013 [place] UNSPECIFIED [facility]OLOGY ASSOCIAT 96658 OTHER 05-30-2013 [place] NONSPECIFIC RADIOLOGY ABNORMAL ASSOCIAT FINDING OF LUNG FIELD 4928 OTHER 05-24-[facility] EMPHYSEMA RAD[facility]OLOGY ASSOCIAT 86623 OTHER 05-24-2013 [facility] DYSPNEA AND EMERGENCY SERVICES RESPIRATORY ABNORMALITI ES 7867 ABNORMAL 05-23-2013 [place] [facility] SOUNDS AMBULANCE 515 POSTINFLAMM 03-22-2013 [facility] ATORY [facility] PULMONARY ASSOCIAT FIBROSIS 35122 OTHER 03-22-2013 [place] DISEASES OF RADIOLOGY LUNG NOT ASSOCIAT ELSEWHERE CLASSIFIED 7862 COUGH 03-21-2013 [facility] AMB[facility]ANCE 4660 ACUTE 10-15-2012 [facility] BRONCHITIS [facility] 486 PNEUMONIA, 07-14-2012 [facility] ORGANISM REGIONAL UNSPECIFIED MEDICAL 5180 PULMONARY 07-14-2012 [place] COLLAPSE [facility] V0481 NEED 08-04-2011 [facility] PROPHYLACTI PRIMARY C CARE CENTER VACCINATION &INOCULATIO N FLU 2809 UNSPECIFIED 03-04-2011 LABORATORY IRON & DEFICIENCY [facility] ICS 4619 ACUTE 07-19-2010 NEW [facility]ITIS, [facility] 4779 ALLERGIC 07-19-2010 NEW RHINITIS [facility] UNSPECIFIED 97769 ARTHRALGIA 03-06-2010 [facility] IBULAR JOINT 4659 ACUTE URIS 06-29-2009 [facility] OF PRIMARY UNSPECIFIED CARE SITE CENTERINC 490 BRONCHITIS 04-28-2009 [facility] NOT EMERGENCY SPECIFIED SERVICES ACUTE OR ASSOCIATES CHRONIC 5199 UNSPECIFIED 04-28-2009 [place] DISEASE OF RADIOLOGY ASSOCIATES RESPIRATORY PSC SYSTEM 77351 PRIMARY LOC 12-20-2008 [facility] PRIMARY OSTEOARTHRO CARE SIS PELVIC CENTERINC REGION&THIG H 24997 PAIN IN 12-20-2008 [facility] [place] [facility] INC REGION AND THIGH 2720 PURE 12-02-2007 [facility] HYPERCHOLES PRIMARY TEROLEMIA CARE CENTERINC 03439 PNEUMONIA 12-02-2007 [facility] DUE TO PRIMARY UNSPECIFIED CARE CENTERINC STREPTOCOCC US 7931 NONSPEC 12-02-2007 [facility] [place] [facility] O[facility] EXAM INC BODY STRUCT LUNG FIELD Immunization Name Date Rout CVX Reac Dose Comm Prov Is Faci e tion ent ider Refu lity Give sed n IIV3 09- 141 GUTT No NEW 7-20 I NORA VACC 10 USH NGTO INE N SPLI CLIN T IC VIRU PSC S 0.5 ML DOSA GE IM USE Procedures Procedure DOS Code Location Performer Comment INJECTION J2001 [facility] ANDERSEN 7 W W LIDOCAINE REGIONAL REGIONAL HCL MEDICAL MEDICAL INTRAVENO US INFUS 10 MG INJECTION J2795 [facility] 7 W W ROPIVACAI REGIONAL REGIONAL NE MEDICAL MEDICAL HYDROCHLO RIDE 1 MG INJECTION J3370 G[facility] 7 W W VANCOMYCI REGIONAL REGIONAL N HCL 500 MEDICAL MEDICAL MG INJECTION J1580 [facility] 7 W W GARAMYCIN REGIONAL REGIONAL MEDICAL MEDICAL GENTAMICI N UP TO 80 MG CATARACT 22180 [facility] REMOVAL 7 EYE INSERTION INSTITUTE OF LENS OPH BMTRY 57137 [facility] US 7 EYE ECHOGRAPY INSTITUTE A-SCAN IO LENS PWR KENISHA INJECTION J3370 G[facility]ESH [facility] 7 W W VANCOMYCI REGIONAL REGIONAL N HCL 500 MEDICAL MEDICAL MG INJECTION J2795 [facility] 7 W W ROPIVACAI REGIONAL REGIONAL NE MEDICAL MEDICAL HYDROCHLO RIDE 1 MG INJECTION J2001 G[facility] 7 W W LIDOCAINE REGIONAL REGIONAL HCL MEDICAL MEDICAL INTRAVENO US INFUS 10 MG CATARACT 70525 GAN[facility] HOANGWCAIO REMOVAL 7 W W INSERTION REGIONAL REGIONAL OF LENS MEDICAL MEDICAL INJECTION J1580 GANESH [facility] 7 W W GARAMYCIN REGIONAL REGIONAL MEDICAL MEDICAL GENTAMICI N UP TO 80 MG FUNDUS 35927 [facility] AWOSIKA PHOTOGRAP 7 HY W/INTERPR ETATION & REPORT OPHTH 10344 AWOS[facility]A AWOSIKA MEDICAL 7 XM&EVAL COMPRE NEW PT 1/> VST CT THORAX 00354 [facility] PAN W/O 7 [facility] CONTRAST INC INC MATERIAL RADIOLOGI 31803 [facility] PAN C EXAM 7 [facility] CHEST 2 INC INC VIEWS FRONTAL&L ATERAL O2 CONC 1 E1390 PREETI, PREETI, DEL PORT 6 INC INC 85%/>02 CONC AT [facility] FLW RATE PHRM Q0513 [facility] RELI[facility] DISPENSIN 6 PHARMACY PHARMACY G FEE SERVICES SERVICES INHALATIO N RX; PER 30 DAYS ALBUTEROL J7620 RELIANT RELIANT TO 2.5 6 PHARMACY PHARMACY MG & SERVICES SERVICES IPRATROPI UM BROM TO 0.5 MG HOME E0466 [facility] [place] [place] 6 INC INC R ANY TYPE USED W/NON-INV ASV INTF BASIC 11350 [facility] METABOLIC 6 PIEDAD PIEDAD PANEL HOLDINGS HOLDINGS CALCIUM TOTAL FEDERALLY G0467 [facility] 6 [facility] CTR CTR CENTER VISIT ESTAB PT PRTBLE E0431 PREETI ÁLVAREZ, GASEOUS 6 INC INC O2 SYS RENT; FLWMTR HUMIDFR&M ASK NATRIURET 80634 [facility] IC 6 W W PEPTIDE [place]ION[place] [address] [facility] TROPONIN 6 W W QUANTITAT REGIONAL REGIONAL ANGELIA MEDICAL MEDICAL BLOOD 30703 [facility] COUNT 6 W W COMPLETE REGIONAL REGIONAL AUTO&AUTO MEDICAL MEDICAL DIFRNTL WBC BASIC 89659 [facility] METABOLIC 6 W W PANEL REGIONAL REGIONAL CALCIUM MEDICAL MEDICAL TOTAL CREATINE 19791 [facility] KINASE 6 W W TOTAL REGIONAL REGIONAL MEDICAL MEDICAL ECG 59462 [facility] ROUTINE 6 W W ECG REGIONAL REGIONAL W/LEAST MEDICAL MEDICAL 12 LDS TRCG ONLY W/O I&R RADIOLOGI 62299 [facility] EXAM 6 NUVIA CHEST 2 RADIOLOGY VIEWS ASSOCIAT FRONTAL&L ATERAL ECG 64477 [facility] ROUTINE 6 IDALIA ECG EMERGENCY W/LEAST PHYS 12 LDS I&R ONLY ALBUTEROL J7620 RELIANT RELIANT TO 2.5 6 PHARMACY PHARMACY MG & SERVICES SERVICES IPRATROPI UM BROM TO 0.5 MG ADMN SET A7003 PREETI ÁLVAREZ, SM VOL 6 INC INC NONFILTR PNEUMAT NEBULIZR DISPBL PHRM Q0513 [facility] RELIANT DISPENSIN 6 PHARMACY PHARMACY G FEE SERVICES SERVICES INHALATIO N RX; [place] 30 [place] [address] [facility] THYROID 6 PIEDAD PIEDAD STIMULATI HOLDINGS HOLDINGS NG HORMONE TSH FEDERALLY G0467 [facility] 6 [facility] CTR CTR CENTER VISIT ESTAB PT FEDERALLY G0467 [facility] 6 [facility] CTR CTR CENTER VISIT ESTAB PT PRSSURE E0464 [facility] EMERGENCY DEPARTMENT [facility] EMERGENC[facility] DE[facility], SUPP VENT 6 INC INC W/VOL CNTRL NONINVASV INTERFCE CUL BACT 55492 [facility] XCPT 6 PIEDAD PIEDAD URINE HOLDINGS HOLDINGS BLOOD/STO OL AEROBIC ISOL PRTBLE E0431 [facility], [facility] GASE[facility] 6 INC INC O2 SYS RENT; FLWMTR HUMIDFR&M ASK PRSSURE E0464 [facility], SUPP VENT 5 INC INC W/VOL CNTRL NONINVASV INTERFCE ALBUTEROL J7620 RELIANT RELIANT TO 2.5 5 PHARMACY PHARMACY MG & SERVICES SERVICES IPRATROPI UM BROM TO 0.5 MG PHRM Q0513 RELIANT RELIANT DISPENSIN 5 PHARMACY PHARMACY G FEE SERVICES SERVICES INHALATIO N RX; PER 30 DAYS PRTBLE E0431 [facility] EMER[facility], [facility], GASEOUS 5 INC INC O2 SYS RENT; FLWMTR HUMIDFR&M ASK PORTABLE E0443 [facility] EMERGENCY DEPARTMENT, [facility] EMERGENCY DEPARTMENT, O2 5 INC INC CONTENTS GASEOUS 1 MO SUPPLY=1 UNIT FEDERALLY G0467 [facility] 5 [facility] CTR CTR CENTER VISIT ESTAB PT FEDERALLY G0467 [facility] 5 [facility] [place] [address] [facility] THYROID 5 PIEDAD PIEDAD STIMULATI HOLDINGS HOLDINGS NG HORMONE TSH PRSSURE E0464 [facility] EMERGENC[facility] DEPARTMENT, [facility], SUPP VENT 5 INC INC W/VOL CNTRL NONINVASV INTERFCE PORTABLE E0443 [facility] EMERGENCY DEPARTMENT, [facility] EMERGENCY DEPARTMENT, O2 5 INC INC CONTENTS GASEOUS 1 MO SUPPLY=1 UNIT PRTBLE E0431 [facility] EMERGENCY DEPARTMENT, [facility] EMERGENCY DEPARTMENT, GASEOUS 5 INC INC O2 SYS RENT; FLWMTR HUMIDFR&M ASK PRSSURE E0464 [facility], SUPP VENT 5 INC INC W/VOL CNTRL NONINVASV INTERFCE COMMODE E0163 [facility] EMERGENCY DEPARTMENT [facility] EMERGENC[facility] DE[facility], CHAIR 5 INC INC MOBILE OR STATIONAR Y W/FIXED ARMS HOS BED E0260 [facility] EMERGENCY DEPARTMENT [facility], SEMI-ELEC 5 INC INC W/ANY TYPE SIDE RAIL W/MATTRSS PRTBLE E0431 [facility] EMERGENCY DEPARTMENT [facility] EMERGENC[facility] DE[facility], GASEOUS 5 INC INC O2 SYS RENT; FLWMTR HUMIDFR&M ASK SBSQ 55701 [facility] [address] MAR CARE/DAY HOSPITALI 25 [address] MINUTES SBSQ 91309 [facility] [address] MAR CARE/DAY [facility] [address] MINUTES SBSQ 11682 [facility] [address] MAR CARE/DAY [facility]PITALI [address] MINUTES INITIAL 41065 [facility] [address] MAR CARE/DAY HOSPITALI [address] MINUTES GROUND A0425 [facility] MILEAGE 5 [facility] CO PER STATUTE AMBULANCE AMBULANCE MILE RADIOLOGI 87274 [place] [facility]ER[facility] 5 [place]UV[place] EXAMINATI RADIOLOGY ON CHEST ASSOCIAT [place] FRONTAL AMB A0427 [facility] SERVICE 5 [facility] ALS EMERGENCY AMBULANCE AMBULANCE TRANSPORT LEVEL 1 ECG 42731 [facility] ROUTINE 5 IDALIA DEISY ECG EMERGENCY W/LEAST PHYS 12 [facility] I&R [facility] 41496 [facility] T 30 MIN/< SBSQ 71103 [facility] 5 W [facility] CARE[facility]DAY [facility] [address] MINUTES INITIAL 94759 [facility] 5 W [facility] CARE[facility] [address] MINUTES RADIOLOGI 40755 [place] BEL C 5 EIDER MAGDALENA EXAMINATI RADIOLOGY ON CHEST ASSOCIAT [place] FRONTAL FEDERALLY G0467 [facility] 5 PRIMARY PRIMARY QUALIFIED [facility] CENTER CENTER VISIT ESTAB PT ALBUTEROL J7620 RELIANT RELIANT TO 2.5 5 PHARMACY PHARMACY MG & SERVICES SERVICES IPRATROPI UM BROM TO 0.5 MG ADMN SET A7003 [facility], VOL 5 INC INC NONFILTR PNEUMAT NEBULIZR DISPBL PHRM Q0513 RELIANT RELIANT DISPENSIN 5 PHARMACY [...] TO 0.5 MG ADMN SET A7005 [facility], / VOL 5 INC INC NONFILTR NEBULIZR NON-DISPB L PHRM Q0513 RELIANT RELIANT DISPENSIN 5 PHARMACY PHARMACY G FEE SERVICES SERVICES INHALATIO N RX; PER 30 DAYS O2 CONC 1 E1390 [facility] 5 INC INC 85%/>02 CONC AT [facility] FLW RATE PHRM Q0513 REL[facility]ANT RELIANT DISPENSIN 5 PHARMACY PHARMACY G FEE SERVICES SERVICES INHALATIO N RX; PER 30 DAYS ALBUTEROL J7620 RELIANT RELIANT TO 2.5 5 PHARMACY PHARMACY MG & SERVICES SERVICES IPRATROPI UM BROM TO 0.5 MG O2 CONC 1 E1390 [facility], [facility] 5 INC INC 85%/>02 CONC AT [facility] FLW RATE PHRM Q0513 RELIANT RELIANT DISPENSIN 5 PHARMACY PHARMACY G FEE SERVICES SERVICES INHALATIO N RX; PER 30 DAYS ALBUTEROL J7620 RELIANT RELIANT TO 2.5 5 PHARMACY PHARMACY MG & SERVICES SERVICES IPRATROPI UM BROM TO 0.5 MG O2 CONC 1 E1390 [place] [address] INC INC 85%/>02 CONC AT PRS FLW RATE BLOOD 32013 [facility] COUNT 5 DIAGNOSTI DIAGNOSTI COMPLETE CS CS AUTO&AUTO INCORPORA INCORPORA DIFRNTL T T WBC IRON 68003 [facility] BINDING 5 DIAGNOSTI DIAGNOSTI CAPACITY CS CS INCORPORA INCORPORA T T DRUG 05216 [facility] SCREEN 5 DIAGNOSTI DIAGNOSTI QUANTITAT CS CS ANGELIA INCORPORA INCORPORA THEOPHYLL T T INE 25 25866 [facility] HYDROXY 5 DIAGNOSTI DIAGNOSTI INCLUDES CS CS FRACTIONS INCORPORA INCORPORA IF T T PERFORMED CYANOCOBA 88464 [facility] JOSLYN 5 DIAGNOSTI DIAGNOSTI VITAMIN CS CS B-12 INCORPORA INCORPORA T T BASIC 11013 [facility] METABOLIC 5 DIAGNOSTI DIAGNOSTI PANEL CS CS CALCIUM [place]ORPOR[place] [address] [facility] THYROID 5 DIAGNOSTI DIAGNOSTI STIMULATI CS CS NG INCORPORA [place] [address] [facility] IRON 5 DIAGNOSTI DIAGNOSTI CS CS INCORPORA INCORPORA T T O2 CONC 1 E1390 [place] [address] INC INC 85%/>02 CONC AT PRS FLW RATE PHRM Q0513 RELIANT RELIANT DISPENSIN 5 PHARMACY PHARMACY G FEE SERVICES SERVICES INHALATIO N RX; PER 30 DAYS ALBUTEROL J7620 RELIANT RELIANT TO 2.5 5 PHARMACY PHARMACY MG & SERVICES SERVICES IPRATROPI UM BROM TO 0.5 MG O2 CONC 1 E1390 [place] [address] INC INC 85%/>02 CONC AT PRS FLW RATE PHRM Q0513 RELIANT RELIANT DISPENSIN 5 PHARMACY PHARMACY G FEE SERVICES SERVICES INHALATIO N RX; PER 30 DAYS ADMN SET A7003 [place] [address] INC INC NONFILTR PNEUMAT NEBULIZR DISPBL ALBUTEROL J7620 RELIANT RELIANT TO 2.5 5 PHARMACY PHARMACY MG & SERVICES SERVICES IPRATROPI UM BROM TO 0.5 MG O2 CONC 1 E1390 [place] [address] INC INC 85%/>02 CONC AT [facility] FLW RATE PHRM Q0513 RELIANT RELIANT DISPENSIN 5 PHARMACY PHARMACY G FEE SERVICES SERVICES INHALATIO N RX; PER 30 DAYS ALBUTEROL J7620 RELIANT RELIANT TO 2.5 5 PHARMACY PHARMACY MG & SERVICES SERVICES IPRATROPI UM BROM TO 0.5 MG O2 CONC 1 E1390 [facility] 4 INC INC 85%/>02 CONC AT [facility] FLW RATE IAADIADOO 11272 [facility] ZAK 4 PRIMARY INFLUENZA CARE CENTER PHRM Q0513 RELIANT RELIANT DISPENSIN 4 PHARMACY PHARMACY G FEE SERVICES SERVICES INHALATIO N RX; PER 30 DAYS ALBUTEROL J7620 RELIANT RELIANT TO 2.5 4 PHARMACY PHARMACY MG & SERVICES SERVICES IPRATROPI UM BROM TO 0.5 MG ADMN SET A7005 [facility], W/SM VOL 4 INC INC NONFILTR NEBULIZR NON-DISPB L O2 CONC 1 E1390 [facility] 4 INC INC 85%/>02 CONC AT [facility] FLW RATE O2 CONC 1 E1390 [facility] 4 INC INC 85%/>02 CONC AT [facility] FLW RATE PHRM Q0513 RELIANT RELIANT DISPENSIN 4 PHARMACY PHARMACY G FEE SERVICES SERVICES INHALATIO N RX; PER 30 DAYS ALBUTEROL J7620 RELIANT RELIANT TO 2.5 4 PHARMACY PHARMACY MG & SERVICES SERVICES IPRATROPI UM BROM TO 0.5 MG ALBUTEROL J7620 RELIANT RELIANT TO 2.5 4 PHARMACY PHARMACY MG & SERVICES SERVICES IPRATROPI UM BROM TO 0.5 MG ADMN SET [id number] [facility] [place] VOL 4 INC INC NONFILTR PNEUMAT NEBULIZR DISPBL O2 CONC 1 E1390 [facility] DEL PORT 4 INC INC 85%/>02 [facility]C AT [facility] FLW RATE PHRM Q0513 RELIANT RELIANT DISPENSIN 4 PHARMACY PHARMACY G FEE SERVICES SERVICES INHALATIO N RX; PER 30 DAYS COLLECTIO [id number] ANNA FERRIS ZAK N VENOUS 4 [facility] O[facility] 1 E1390 [facility] [place] PORT 4 INC INC 85%/>02 CONC AT [facility] FLW RATE PHRM Q0513 RELIANT RELIANT DISPENSIN 4 PHARMACY PHARMACY G FEE SERVICES SERVICES INHALATIO N RX; PER 30 DAYS ALBUTEROL J7620 RELIANT RELIANT TO 2.5 4 PHARMACY PHARMACY MG & SERVICES SERVICES IPRATROPI UM BROM TO 0.5 MG O2 CONC 1 E1390 [facility] [place] [place] PORT 4 INC INC 85%/>02 [facility]C AT [facility] FLW RATE ADMN SET A7003 [facility], VOL 4 INC INC NONFILTR PNEUMAT NEBULIZR DISPBL ALBUTEROL J7620 RELIANT RELIANT TO 2.5 4 PHARMACY PHARMACY MG & SERVICES SERVICES IPRATROPI UM BROM TO 0.5 MG PHRM Q0513 RELIANT RELIANT DISPENSIN 4 PHARMACY PHARMACY G FEE SERVICES SERVICES INHALATIO N RX; PER 30 DAYS O2 CONC 1 E1390 [facility] [place] [place] PORT 4 INC INC 85%/>02 [facility] AT [facility] FLW RATE O2 CONC 1 E1390 [facility], DEL PORT 4 INC INC 85%/>02 CONC AT [facility] FLW RATE PHRM Q0513 RELIANT RELIANT DISPENSIN 4 PHARMACY PHARMACY G FEE SERVICES SERVICES INHALATIO N RX; PER 30 DAYS ALBUTEROL J7620 RELIANT RELIANT TO 2.5 4 PHARMACY PHARMACY MG & SERVICES SERVICES IPRATROPI UM BROM TO 0.5 MG O2 CONC 1 E1390 [facility] [place] DEL PORT 4 INC INC 85%/>02 CONC AT [facility] FLW RATE PHRM Q0513 RELIANT RELIANT DISPENSIN 4 PHARMACY PHARMACY G FEE SERVICES SERVICES INHALATIO N RX; PER 30 DAYS ALBUTEROL J7620 RELIANT RELIANT TO 2.5 4 PHARMACY PHARMACY MG & SERVICES SERVICES IPRATROPI UM BROM TO 0.5 MG COLLECTIO [id number] ANNA FERRIS ZAK N VENOUS 4 PRIMARY BLO[facility] C[facility] URE ADMN SET [id number] PRE[facility], W/SM VOL 4 INC INC NONFILTR NEBULIZR NON-DISPB L ALBUTEROL J7620 RELIANT RELIANT TO 2.5 4 PHARMACY PHARMACY MG & SERVICES SERVICES IPRATROPI UM BROM TO 0.5 MG PHRM Q0513 RELIANT RELIANT DISPENSIN 4 PHARMACY PHARMACY G FEE SERVICES SERVICES INHALATIO N RX; PER 30 DAYS O2 CONC 1 E1390 [facility], [place] 4 INC INC 85%/>02 CONC AT PRS FLW RATE O2 CONC 1 E1390 [facility], [place] 4 INC INC 85%/>02 CONC AT PRS FLW RATE PHRM Q0513 RELIANT RELIANT DISPENSIN 4 PHARMACY PHARMACY G FEE SERVICES SERVICES INHALATIO N RX; PER 30 DAYS ALBUTEROL J7620 RELIANT RELIANT TO 2.5 4 PHARMACY PHARMACY MG & SERVICES SERVICES IPRATROPI UM BROM TO 0.5 MG O2 CONC 1 E1390 [facility], [place] 4 INC INC 85%/>02 CONC AT PRSC FLW RATE O2 CONC 1 E1390 [facility], [place] 3 INC INC 85%/>02 CONC AT PRSC FLW RATE ALBUTEROL J7620 RELIANT RELIANT TO 2.5 3 PHARMACY PHARMACY MG & SERVICES SERVICES IPRATROPI UM BROM TO 0.5 MG PHRM Q0513 RELIANT RELIANT DISPENSIN 3 PHARMACY PHARMACY G FEE SERVICES SERVICES INHALATIO N RX; PER 30 DAYS O2 CONC 1 E1390 [facility], [place] 3 INC INC 85%/>02 CONC AT PRSC FLW RATE O2 CONC 1 E1390 [facility], [place] 3 INC INC 85%/>02 CONC AT PRSC FLW RATE ADMN SET A7003 [facility]ET[facility], SM VOL 3 INC INC NONFILTR PNEUMAT NEBULIZR DISPBL PHRM Q0513 RELIANT RELIANT DISPENSIN 3 PHARMACY PHARMACY G FEE SERVICES SERVICES INHALATIO N RX; PER 30 DAYS ALBUTEROL J7620 RELIANT RELIANT TO 2.5 3 PHARMACY PHARMACY MG & SERVICES SERVICES IPRATROPI UM BROM TO 0.5 MG ADMN SET A7005 [facility], W/ VOL 3 INC INC NONFILTR NEBULIZR NON-DISPB L ALBUTEROL J7620 RELIANT RELIANT TO 2.5 3 PHARMACY PHARMACY MG & SERVICES SERVICES IPRATROPI UM BROM TO 0.5 MG PHRM Q0513 RELIANT RELIANT DISPENSIN 3 PHARMACY PHARMACY G FEE SERVICES SERVICES INHALATIO N RX; PER 30 DAYS O2 CONC 1 E1390 [place] [address] INC INC 85%/>02 CONC AT PRS FLW RATE PHRM Q0513 RELIANT RELIANT DISPENSIN 3 PHARMACY PHARMACY G FEE SERVICES SERVICES INHALATIO N RX; PER 30 DAYS ALBUTEROL J7620 RELIANT RELIANT TO 2.5 3 PHARMACY PHARMACY MG & SERVICES SERVICES IPRATROPI UM BROM TO 0.5 MG O2 CONC 1 E1390 [facility], [place] [address] INC INC 85%/>02 CONC AT PRS FLW RATE ALBUTEROL J7620 RELIANT RELIANT TO 2.5 3 PHARMACY PHARMACY MG & SERVICES SERVICES IPRATROPI UM BROM TO 0.5 MG PHRM Q0513 RELIANT RELIANT DISPENSIN 3 PHARMACY PHARMACY G FEE SERVICES SERVICES INHALATIO N RX; PER 30 DAYS RADIOLOGI 45948 [facility] 3 NUVIA EXAMINATI RADIOLOGY ON CHEST ASSOCIAT SINGLE VIEW FRONTAL CULTURE 81021 [facility] BACTERIAL 3 DIAGNOSTI DIAGNOSTI CS CS QUANTTATI VE COLONY COUNT URINE BASIC 34482 [facility] METABOLIC 3 DIAGNOSTI DIAGNOSTI PANEL CS CS CALCIUM TOTAL BLOOD 88615 [facility] COUNT 3 DIAGNOSTI DIAGNOSTI COMPLETE CS CS AUTO&AUTO DIFRNTL WBC COLLECTIO 04257 ANNA SORIA [place] ZAK N VENOUS 3 PRIMARY BLOOD CARE VENIPUNCT CENTER URE RADIOLOGI 73139 [facility] C EXAM 3 EMERGENCY CHR CHEST 2 SERVICES VIEWS FRONTAL&L ATERAL AMBULANCE A0429 [facility] SERVICE 3 MINESH CO MINESH CO BLS EMERGENCY AMBULANCE AMBULANCE TRANSPORT GROUND A0425 [facility] MILEAGE 3 MINESH CO MINESH CO PER STATUTE AMBULANCE AMBULANCE MILE CULTURE 69832 [facility] BACTERIAL 3 DIAGNOSTI DIAGNOSTI CS CS QUANTTATI VE COLONY COUNT URINE SUSCEPTIB 22188 [facility] LTY STDY 3 DIAGNOSTI DIAGNOSTI ANTIMICRB CS CS IAL MICRO/AGA R DILUTJ CUL BACT 19810 [facility] AEROBIC 3 DIAGNOSTI DIAGNOSTI ADDL CS CS METHS DEFINITIV E EA ISOL CULTURE 39859 [facility] BCT 3 DIAGNOSTI DIAGNOSTI ISOL&PRSM CS CS PTV ID ISOLATE EA URINE URNLS DIP 87896 ANNA DUMAS CONCHA 3 PRIMARY STICK/TAB CARE LET RGNT CENTER AUTO W/O MICROSCOP Y O2 CONC 1 E1390 [facility], [facility] PORT 3 INC INC 85%/>02 CONC AT [facility] FLW RATE PHRM Q0513 RELIANT RELIANT [...] 30 DAYS O2 CONC 1 E1390 [facility], [facility] PORT 3 INC INC 85%/>02 CONC AT PRS FLW RATE URNLS DIP 92839 ANNA SORIA [place] ZAK 3 PRIMARY STICK/TAB CARE LET RGNT CENTER AUTO W/O MICROSCOP Y CT THORAX 00004 [facility] 3 NUVIA W/CONTRAS RADIOLOGY T ASSOCIAT MATERIAL CULTURE 99912 [facility] BCT 3 DIAGNOSTI DIAGNOSTI ISOL&PRSM CS CS PTV ID ISOLATE EA URINE URNLS DIP 75348 ANNA CO [place] ZAK 3 PRIMARY STICK/TAB CARE LET RGNT CENTER NON-AUTO W/O MICRSCP SUSCEPTIB 36764 [facility] LTY STDY 3 DIAGNOSTI DIAGNOSTI ANTIMICRB CS CS IAL MICRO/AGA R DILUTJ CUL BACT 85573 [facility] AEROBIC 3 DIAGNOSTI DIAGNOSTI ADDL CS CS METHS DEFINITIV E EA ISOL AMB A0427 [facility] SERVICE 3 MINESH CO MINESH CO ALS EMERGENCY AMBULANCE AMBULANCE TRANSPORT LEVEL 1 CULTURE 50637 [facility] BACTERIAL 3 DIAGNOSTI DIAGNOSTI CS CS QUANTTATI VE COLONY COUNT URINE GROUND A0425 [facility] MILEAGE 3 MINESH CO MINESH CO PER STATUTE AMBULANCE AMBULANCE MILE RADIOLOGI 24399 [facility] C EXAM 3 [facility] CHEST 2 RADIOLOGY VIEWS ASSOCIAT FRONTAL&L ATERAL O2 CONC 1 E1390 [facility], [facility] PORT 3 INC INC 85%/>02 CONC AT PRSC FLW RATE ADMN SET A7003 [facility] VOL 3 INC INC NONFILTR PNEUMAT NEBULIZR DISPBL PHRM Q0513 RELIANT RELIANT DISPENSIN 3 PHARMACY PHARMACY G FEE SERVICES SERVICES INHALATIO N RX; PER 30 DAYS ALBUTEROL J7620 RELIANT RELIANT TO 2.5 3 PHARMACY PHARMACY MG & SERVICES SERVICES IPRATROPI UM BROM TO 0.5 MG O2 CONC 1 E1390 [facility] PORT 3 INC INC 85%/>02 CONC AT PRSC FLW RATE NEBULIZER E0570 [facility] WITH 3 INC INC COMPRESSO R PHRM Q0513 RELIANT RELIANT DISPENSIN 3 PHARMACY PHARMACY G FEE SERVICES SERVICES INHALATIO N RX; PER 30 DAYS ALBUTEROL J7620 RELIANT RELIANT TO 2.5 3 PHARMACY PHARMACY MG & SERVICES SERVICES IPRATROPI UM BROM TO 0.5 MG COLLECTIO 03105 ANNA CLEMENTEI N VENOUS 3 PRIMARY BLOOD [facility] URE O2 CONC 1 E1390 [facility] 3 INC INC 85%/>02 CONC AT PRS FLW RATE NEBULIZER E0570 [facility], WITH 3 INC INC COMPRESSO R PHRM Q0513 RELIANT RELIANT DISPENSIN 3 PHARMACY PHARMACY G FEE SERVICES SERVICES INHALATIO N RX; PER 30 DAYS ALBUTEROL J7620 RELIANT RELIANT TO 2.5 3 PHARMACY PHARMACY MG & SERVICES SERVICES IPRATROPI UM BROM TO 0.5 MG O2 CONC 1 E1390 [facility] 3 INC INC 85%/>02 CONC AT PRS FLW RATE NEBULIZER E0570 [facility], WITH 3 INC INC COMPRESSO R PHRM Q0513 RELIANT RELIANT DISPENSIN 3 PHARMACY PHARMACY G FEE SERVICES SERVICES INHALATIO N RX; PER 30 DAYS ALBUTEROL J7620 RELIANT RELIANT TO 2.5 3 PHARMACY PHARMACY MG & SERVICES SERVICES IPRATROPI UM BROM TO 0.5 MG ALBUTEROL J7620 RELIANT RELIANT TO 2.5 2 PHARMACY PHARMACY MG & SERVICES SERVICES IPRATROPI UM BROM TO 0.5 MG PHRM Q0513 RELIANT RELIANT DISPENSIN 2 PHARMACY PHARMACY G FEE SERVICES SERVICES INHALATIO N RX; PER 30 DAYS O2 CONC 1 E1390 [facility] 2 INC INC 85%/>02 CONC AT PRS FLW RATE PHRM Q0513 RELIANT RELIANT DISPENSIN 2 PHARMACY PHARMACY G FEE SERVICES SERVICES INHALATIO N RX; PER 30 DAYS ALBUTEROL J7620 RELIANT RELIANT TO 2.5 2 PHARMACY PHARMACY MG & SERVICES SERVICES IPRATROPI UM BROM TO 0.5 MG NEBULIZER E0570 [facility], WITH 2 INC INC COMPRESSO R O2 CONC 1 E1390 [facility] [place] 2 INC INC 85%/>02 CONC AT PRS FLW RATE NEBULIZER E0570 [facility], WITH 2 INC INC COMPRESSO R ADMN SET A7003 [facility], SM VOL 2 INC INC NONFILTR PNEUMAT NEBULIZR DISPBL PHRM Q0513 RELIANT RELIANT DISPENSIN 2 PHARMACY PHARMACY G FEE SERVICES SERVICES INHALATIO N RX; PER 30 DAYS ALBUTEROL J7620 RELIANT RELIANT TO 2.5 2 PHARMACY PHARMACY MG & SERVICES SERVICES IPRATROPI UM BROM TO 0.5 MG O2 CONC 1 E1390 [facility], [place] 2 INC INC 85%/>02 CONC AT PRS FLW RATE NEBULIZER E0570 [facility], WITH 2 INC INC COMPRESSO R RADIOLOGI 46182 [facility] C EXAM 2 [place] CHEST 2 RADIOLOGY VIEWS ASSOCIAT FRONTAL&L ATERAL SBSQ 21124 [facility] 2 W [facility] EMERGENC[facility]PART[facility]/DAY [facility] MINUTES RADIOLOGI 32002 [facility] C EXAM 2 [place] MAGDALENA CHEST 2 RADIOLOGY VIEWS ASSOCIAT FRONTAL&L ATERAL PHRM Q0513 RELIANT RELIANT DISPENSIN 2 PHARMACY PHARMACY G FEE SERVICES SERVICES INHALATIO N RX; PER 30 DAYS URNLS DIP 15202 ANNA CO [place] ZAK 2 PRIMARY STICK/TAB CARE LET RGNT CENTER AUTO W/O MICROSCOP Y SUSCEPTIB 03168 [facility] LTY STDY 2 DIAGNOSTI DIAGNOSTI ANTIMICRB CS CS IAL MICRO/AGA R DILUTJ CUL BACT 50206 [facility] AEROBIC 2 DIAGNOSTI DIAGNOSTI ADDL CS CS METHS DEFINITIV E EA ISOL CULTURE 90742 [facility] BACTERIAL 2 DIAGNOSTI DIAGNOSTI CS CS QUANTTATI VE COLONY COUNT URINE CULTURE 19275 [facility] BCT 2 DIAGNOSTI DIAGNOSTI ISOL&PRSM CS CS PTV ID ISOLATE EA URINE ALBUTEROL J7620 RELIANT RELIANT TO 2.5 2 PHARMACY PHARMACY MG & SERVICES SERVICES IPRATROPI UM BROM TO 0.5 MG O2 CONC 1 E1390 [facility], [facility] 2 INC INC 85%/>02 CONC AT [facility] FLW RATE NEBULIZER E0570 [facility], WITH 2 INC INC COMPRESSO R ADMN SET A7003 [facility], SM VOL 2 INC INC NONFILTR PNEUMAT NEBULIZR DISPBL PHRM Q0513 RELIANT RELIANT DISPENSIN 2 PHARMACY PHARMACY G FEE SERVICES SERVICES INHALATIO N RX; PER 30 DAYS LIPID 60525 [facility] PANEL 2 DIAGNOSTI DIAGNOSTI CS CS ALBUTEROL J7620 RELIANT RELIANT TO 2.5 2 PHARMACY PHARMACY MG & SERVICES SERVICES IPRATROPI [place] 0[place] [address] QUE[facility] QUEST THYROID 2 DIAGNOSTI DIAGNOSTI STIMULATI CS CS NG HORMONE TSH COMPREHEN 70702 [facility] QUE[facility] SIVE 2 DIAGNOSTI DIAGNOSTI METABOLIC CS CS PANEL COLLECTIO 77052 ANNA CO [place] ZAK N VENOUS 2 [facility] URE O2 CONC 1 E1390 [facility], [place] 2 INC INC 85%/>02 CONC AT PRS FLW RATE NEBULIZER E0570 [facility], WITH 2 INC INC COMPRESSO R PHRM Q0513 RELIANT RELIANT DISPENSIN 2 PHARMACY PHARMACY G FEE SERVICES SERVICES INHALATIO N RX; PER 30 DAYS ALBUTEROL J7620 RELIANT RELIANT TO 2.5 2 PHARMACY PHARMACY MG & SERVICES SERVICES IPRATROPI UM BROM TO 0.5 MG NEBULIZER E0570 [facility], WITH 2 INC INC COMPRESSO R PHRM Q0513 RELIANT RELIANT DISPENSIN 2 PHARMACY PHARMACY G FEE SERVICES SERVICES INHALATIO N RX; PER 30 DAYS ALBUTEROL J7620 RELIANT RELIANT TO 2.5 2 PHARMACY PHARMACY MG & SERVICES SERVICES IPRATROPI UM BROM TO 0.5 MG ADMN SET A7005 [facility], W/SM VOL 2 INC INC NONFILTR NEBULIZR NON-DISPB L NEBULIZER E0570 [facility], WITH 2 INC INC COMPRESSO R NEBULIZER E0570 [facility], WITH 2 INC INC COMPRESSO R ADMN SET A7003 [facility], SM VOL 2 INC INC NONFILTR PNEUMAT NEBULIZR DISPBL PHARM G0333 RELIANT RELIANT DISPEN 2 PHARMACY PHARMACY FEE INHAL SERVICES SERVICES RX; INITIAL 30-DAY SUPPLY ALBUTEROL J7620 RELIANT RELIANT TO 2.5 2 PHARMACY PHARMACY MG & SERVICES SERVICES IPRATROPI UM BROM TO 0.5 MG NONINVASI 24542 ANNA SORIA BARRINGTON ZAK VE 2 PRIMARY EAR/PULSE CARE OXIMETRY CENTER SINGLE DETER CULTURE 24497 LABORATOR LABORATOR BACTERIAL 2 Y & Y & BIODIAGNO BIODIAGNO QUANTTATI STICS STICS VE COLONY COUNT URINE CUL BACT 85829 LABORATOR LABORATOR AEROBIC 2 Y & Y & ADDL BIODIAGNO BIODIAGNO METHS STICS STICS DEFINITIV E EA ISOL SUSCEPTIB 89924 LABORATOR LABORATOR LTY STDY 2 Y & Y & ANTIMICRB BIODIAGNO BIODIAGNO IAL STICS STICS MICRO/AGA R DILUTJ URNLS DIP 59923 ANNA SORIA POCZATEK 2 PRIMARY PAT STICK/TAB CARE LET RGNT CENTER AUTO W/[place] [address] LABORATOR LABORATOR THYROID 1 Y & Y & STIMULATI BIODIAGNO BIODIAGNO NG STICS STICS HORMONE TSH COMPREHEN 25686 LABORATOR LABORATOR SIVE 1 Y & Y & METABOLIC BIODIAGNO BIODIAGNO PANEL STICS STICS LIPID 10100 LABORATOR LABORATOR PANEL 1 Y & Y & BIODIAGNO BIODIAGNO STICS STICS LIPOPROTE 09425 LABORATOR LABORATOR IN DIRECT 1 Y & Y & BIODIAGNO BIODIAGNO MEASUREME STICS STICS NT LDL CHOLESTER OL COLLECTIO 92716 [facility] V[facility] PRIMARY BLOOD CARE VENIPUNCT CENTER URE COLLECTIO 36378 ANNA GA [place] ZAK N VENOUS 1 PRIMARY BLOOD CARE VENIPUNCT CENTER URE DRUG 33388 LABORATOR LABORATOR SCREEN 1 Y & Y & QUANTITAT BIODIAGNO BIODIAGNO ANGELIA STICS STICS THEOPHYLL INE LIPID 76877 LABORATOR LABORATOR PANEL 1 Y & Y & BIODIAGNO BIODIAGNO STICS STICS BLOOD 66677 LABORATOR LABORATOR COUNT 1 Y & Y & COMPLETE BIODIAGNO BIODIAGNO AUTO&AUTO STICS STICS DIFRNTL WBC IRON 82997 LABORATOR LABORATOR BINDING 1 Y & Y & CAPACITY BIODIAGNO BIODIAGNO STICS STICS LIPOPROTE 48427 LABORATOR LABORATOR IN DIRECT 1 Y & Y & BIODIAGNO BIODIAGNO MEASUREME STICS [place] [address] LABORATOR LABORATOR FERRITIN 1 Y & Y & BIODIAGNO BIODIAGNO STICS STICS CYANOCOBA 19927 LABORATOR LABORATOR JOSLYN 1 Y & Y & VITAMIN BIODIAGNO BIODIAGNO B-12 STICS STICS COMPREHEN 78531 LABORATOR LABORATOR SIVE 1 Y & Y & METABOLIC BIODIAGNO [place]AG[place] [address] LABORATOR LABORATOR THYROID 1 Y & Y & STIMULATI BIODIAGNO BIODIAGNO [place] [address] LABORATOR LABORATOR FREE 1 Y & Y & THYROXINE BIODIAG[place] [address] LABORATOR LABORATOR IRON 1 Y & Y & BIODIAGNO BIODIAGNO STICS STICS COLLECTIO 21142 ANNA CO [place] ZAK N VENOUS 1 PRIMARY BLOOD CARE VENIPUNCT CENTER URE SUSCEPTIB 08944 LABORATOR LABORATOR LTY STDY 0 Y & Y & ANTIMICRB BIODIAGNO BIODIAGNO IAL STICS STICS MICRO/AGA R DILUTJ CULTURE 54327 LABORATOR LABORATOR BACTERIAL 0 Y & Y & BIODIAGNO BIODIAGNO QUANTTATI STICS STICS VE COLONY COUNT URINE CUL BACT 44073 LABORATOR LABORATOR AEROBIC 0 Y & Y & ADDL BIODIAGNO BIODIAGNO METHS STICS STICS DEFINITIV E EA ISOL THERAPEUT 46168 [facility] IC 0 [facility] TIC/DX PSC INJECTION SUBQ/IM ADMINISTR G0008 [facility] ATION OF 0 [place] [facility] VIRUS PSC VACCINE IIV3 [address] [facility] GUTTI US VACCINE 0 [place] SPLIT [facility] VIRUS 0.5 PSC ML DOSAGE IM USE INJECTION J1040 [facility] 0 [place] [facility] DNISOLONE PSC ACETATE 80 MG THERAPEUT 78794 [facility] IC 0 [facility] [facility] TIC/DX PSC INJECTION SUBQ/IM INJECTION J1030 [facility] 0 [place] [facility] DNISOLONE PSC ACETATE 40 MG COLLECTIO 42816 [facility] N VENOUS 0 CLINIC CLINIC BLOOD LABORATOR LABOR[place] [address] [facility] FREE 0 CLINIC CLINIC THYROXINE [place] [address] [facility] THYROID 0 CLINIC CLINIC STIMULATI LABORATOR LABORATOR NG Y Y HORMONE TSH COMPREHEN 70060 [facility] SIVE 0 [facility]INIC CLINIC METABOLIC LABORATOR LABORATOR PANEL Y Y LIPID 45158 [facility] PANEL 0 CLINIC CLINIC LABORATOR LABORATOR Y Y DRUG 38701 [facility] SCREEN 0 CLINIC CLINIC QUANTITAT LABORATOR LABORATOR ANGELIA Y Y THEOPHYLL INE LIPID 69385 [facility] PANEL 0 CLINIC CLINIC LABORATOR LABORATOR Y Y COMPREHEN 86040 [facility] SIVE 0 [facility]IC CLINIC METABOLIC LABOR[place] [address] [facility] THYROID 0 CLINIC CLINIC STIMULATI LABORATOR LABOR[place] [address] [facility] FREE 0 CLINIC CLINIC THYROXINE LABORATOR LABORATOR Y Y COLLECTIO 74795 [facility] N VENOUS 0 CLINIC CLINIC BLOOD LABORATOR LABORATOR VENIPUNCT Y Y URE CT THORAX 94622 [facility] [place] PIERRE, 0 RADIOLOGY GAIL L W/CONTRAS T MATERIAL RADIOLOGI 47328 [facility] [place] Ana JEFFERSON EXAM 0 RADIOLOGY HANNAH A CHEST 2 VIEWS FRONTAL&L ATERAL ADMN SET A7005 [facility] W/SM VOL 9 PRODUCTS PRODUCTS [employer] NEBULIZR NON-DISPB L ALBUTEROL J7620 [facility] TO 2.5 9 PHARMACY PHARMACY MG & #10-1569 #10-1569 IPRATROPI UM BROM TO 0.5 MG PHARM G0333 [facility] DISPEN 9 PHARMACY PHARMACY FEE INHAL #10-1569 #10-1569 RX; INITIAL 30-DAY SUPPLY NEBULIZER E0570 [facility] WITH 9 PRODUCTS PRODUCTS COMPRESSO [employer] R LIPID 06048 [facility] PANEL 9 [place] [address] [facility] FREE 9 [facility] [place] [address] [facility] THYROID 9 [facility] STIMULATI NG HORMONE TSH COMPREHEN 36413 [facility] SIVE 9 [facility] METABOLIC PANEL RADIOLOGI 18504 [facility] EXAM 9 [place], CHEST 2 RADIOLOGY JONAS VIEWS K FRONTAL&L ASSOCIATE ATERAL S PSC RADEX HIP 19300 [facility] [place], [facility] ANNITA R L INC COMPLETE MINIMUM 2 VIEWS LIPID 97916 [facility] PANEL 8 [facility] BLOOD 82100 [facility] COUNT 8 [facility] COMPLETE AUTO&AUTO DIFRNTL WBC BASIC 10176 [facility] METABOLIC 8 [facility] [place] [address] [facility] THYROID 8 [facility] STIMULATI NG HORMONE TSH RADIOLOGI 45018 [facility] DEGIORGIO C EXAM 8 [place] JR, CHEST 2 IMAGING ANNITA R VIEWS INC FRONTAL&L ATERAL INJECTION J0696 ANNA HARRISON, 8 PRIMARY PATITO [facility] PER 250 MG RADIOLOGI 51067 [facility] YO, C EXAM 8 [place] ESTELA B CHEST 2 IMAGING VIEWS INC FRONTAL&L ATERAL Encounters Encounter Start End Date Code Location Performer Type Date OFFICE 69019 [facility] 7 7 PHYSICIAN T NEW 30 PRACTICE MINUTES [facility] 7 [facility] [address] [facility] MEDICAL OFFICE 13069 [facility] OUT[facility] 7 7 PHYSICIAN T NEW 10 S GROUP MINUTES [facility] 7 7 [facility] T OFFICE 19886 [facility]PATI[facility] 7 7 [facility] T NEW 10 INC MINUTES [facility]OS[facility] - 7 7 [facility] OUTPATIEN INC [facility]IANE - 7 7 [facility] OUTPATIEN [facility] T OFFICE 83218 ANNA [facility] OUTPATIEN 6 6 FAMILY T VISIT HEALTH 15 CTR MINUTES [facility] [address] [facility] MEDICAL EMERGENCY 49920 [facility] DEPT 6 6 [place] VISIT EMERGENCY HIGH PHYS SEVERITY& THREAT FUNCJ EMERGENCY 65046 [facility]ESH 6 6 W [facility] T VISIT MEDICAL HIGH/URGE NT SEVERITY OFFICE 23485 [facility]NA [facility] OUTPATIEN 6 6 FAMILY T VISIT HEALTH 15 CTR MINUTES OFFICE 87959 [facility]NA CO OUTPATIEN 6 6 FAMILY T VISIT HEALTH 15 CTR MINUTES OFFICE 08861 [facility] OUTPATIEN 5 5 FAMILY T VISIT HEALTH 15 CTR MINUTES OFFICE 29504 ANNA CO OUTPATIEN 5 5 FAMILY T VISIT HEALTH 15 CTR MINUTES EMERGENCY 87077 [facility] DEPT 5 5 [place] DEISY VISIT EMERGENCY HIGH PHYS SEVERITY& THREAT FUNCJ EMERGENCY 02166 [facility] DEPT 5 5 [place] DEISY VISIT EMERGENCY HIGH PHYS SEVERITY& THREAT FUN [facility]OS[facility] - 5 5 W [facility] OFFICE 28422 ANNA CO OUTPATIEN 5 5 PRIMARY T VISIT CARE 15 CENTER MINUTES EMERGENCY 63906 JIA WELLS 5 5 [place] CHR DEPARTMEN EMERGENCY T VISIT PHYS HIGH/URGE NT SEVERITY OFFICE 05558 [facility] OUTPATIEN 5 5 PRIMARY T VISIT CARE 15 CENTER MINUTES OFFICE 64913 [facility] OUTPATIEN 4 4 PRIMARY T VISIT CARE 15 CENTER MINUTES OFFICE 54664 [facility] OUTPATIEN 4 4 PRIMARY T VISIT CARE 15 CENTER MINUTES EMERGENCY 19279 JIA HERNANDEZ 4 4 [place]ALIA ROBERT DEPARTMEN EMERGENCY T VISIT PHYS HIGH/URGE NT SEVERITY OFFICE 37726 [facility] OUTPATIEN 4 4 PRIMARY T VISIT CARE 15 CENTER MINUTES OFFICE 45307 [facility]NA [facility] OUTPATIEN 4 4 PRIMARY T VISIT CARE 15 CENTER MINUTES OFFICE 33076 ANNA CO OUTPATIEN 4 4 PRIMARY T VISIT CARE 15 CENTER MINUTES EMERGENCY 01304 DONA SAMS DEPT 3 3 EMERGENCY VISIT SERVICES HIGH SEVERITY& THREAT FUNCJ OFFICE 10312 [facility] OUTPATIEN 3 3 PRIMARY T VISIT CARE 15 CENTER MINUTES EMERGENCY 46605 DONA WELLS DEPT 3 3 EMERGENCY CHR VISIT SERVICES HIGH SEVERITY& THREAT FUNCJ OFFICE 87353 [facility] OUTPATIEN 3 3 PRIMARY T VISIT CARE 15 CENTER MINUTES OFFICE 70645 [facility]NA CO OUTPATIEN 3 3 PRIMARY T VISIT CARE 15 CENTER MINUTES OFFICE 00891 [facility] OUTPATIEN 3 3 PRIMARY T VISIT CARE 15 CENTER MINUTES EMERGENCY 51974 DONA HERNANDEZ 3 3 EMERGENCY ROBERT DEPARTMEN SERVICES T VISIT HIGH/URGE NT SEVERITY OFFICE 94745 [facility] OUTPATIEN 3 3 PRIMARY T VISIT CARE 15 CENTER MINUTES OFFICE 39077 [facility] OUTPATIEN 3 3 PRIMARY T VISIT CARE 15 CENTER MINUTES OFFICE 72528 [facility] OUTPATIEN 2 2 PRIMARY T VISIT CARE 15 CENTER MINUTES OFFICE 57214 [facility] OUTPATIEN 2 2 PRIMARY T VISIT CARE 25 CENTER MINUTES HOSPITAL [facility] - 2 2 W OUTPATIEN REGIONAL T MEDICAL OFFICE 53516 [facility] OUTPATIEN 2 2 PRIMARY T VISIT CARE 10 CENTER MINUTES EMERGENCY 58454 DONA WELLS DEPT 2 2 EMERGENCY CHR VISIT SERVICES HIGH SEVERITY& THREAT FUNJ OFFICE 88199 [facility] OUTPATIEN 2 2 [facility] 15 [facility]ENTER MINUTES OFFICE 83240 [facility] OUTPATIEN 2 2 [facility] 15 [facility]ENTER MINUTES OFFICE 01343 [facility] OUTPATIEN 2 2 [facility] T [facility]IS[facility] C[facility] 25 CENTER MINUTES OFFICE 45856 [facility] OUTPATIEN 2 2 [facility] T [facility]IS[facility] C[facility] 25 CENTER MINUTES OFFICE 63825 [facility] OUTPATIEN 2 2 [facility] T [facility] 15 [facility]ENTER MINUTES OFFICE 40305 [facility] OUTPATIEN 2 2 [facility] T [facility] 15 CENTER MINUTES OFFICE 30471 [facility] OUTPATIEN 2 2 [facility] T [facility] 15 [facility]ENTER MINUTES OFFICE 92342 [facility] OUTPATIEN 2 2 [facility] 15 [facility]ENTER MINUTES OFFICE 91904 [facility] OUTPATIEN 1 1 [facility] 15 [facility] MINUTES OFFICE 54044 [facility] [place] ZAK OUTPATIEN 1 1 [facility] T [facility] 15 CENTER MINUTES OFFICE 35888 [facility] OUTPATIEN 1 1 [facility] 10 CENTER MINUTES OFFICE 46913 [facility]PATI[facility] 1 1 [facility] 15 [facility] MINUTES OFFICE 06732 [facility] OUTPATIEN 0 0 [place] [facility] 15 [facility] MINUTES OFFICE 46906 NEW OUTPATIEN 0 0 [place] [facility] 15 [facility] MINUTES OFFICE 28251 [facility], OUTPATIEN 0 0 [place] [facility] 15 PSC MINUTES OFFICE 33090 [facility], OUTPATIEN 0 0 [place] [facility] 15 PSC MINUTES OFFICE 52020 [facility], OUTPATIEN 0 0 [place] [facility] 15 PSC MINUTES OFFICE 10274 [facility], OUTPATIEN 0 0 [place] JACLYN R T NEW 20 CLINIC MINUTES PSC CLINIC, [facility] 44534 [facility] OUT[facility]IEN 9 9 [facility] 54174 [facility] OUTPATIEN 9 9 [facility]ES [facility], [facility] 96024 [facility] OUTPATIEN 9 9 [facility] MINUTES OFFICE 79590 [facility] OUTPATIEN 9 9 [facility] MINUTES CLINIC, [facility] 9 [facility] OFF[facility] 14877 [facility] OUTPATIEN 9 9 [facility] 15 [facility] MINUTES EMERGENCY [id number] DONA CALLES, DEPT 9 9 EMERGENCY [place] [facility] VISIT SERVICES HIGH SEVERITY& ASSOCIATE THREAT S FUNCJ OFFICE 20396 [facility] SOARES 9 9 [facility] 25 [facility] MINUTES CLINIC, [facility] SORIA FREE 9 [facility] OFF[facility] 44587 FANY COLON 8 8 [facility] T VIS[facility] C[facility] 15 [facility] MINUTES OFFICE 06436 FANY COLON 8 8 [facility] MINUTES OFFICE 03865 FANY GREEN 8 8 [facility]
--- OUTSIDE RECORDS SUMMARY | 2017-08-26 09:15 | External Medical Summary Rpt | CCD ---
Author Author , KIRIT BETH Address Unknown Phone [email or web address] Care Team Providers Care Cradle Slide Maker Name Role Phone JONAS MCDANIEL Unavailable Unavailable AWOSIKA, AWOSIKA Unavailable Unavailable AWOSIKA, AWOSIKA Unavailable Unavailable SAM, SAM Unavailable Unavailable [facility] Unavailable Unavailable [facility], [facility] GAIL PIERRE, IGNACIO, [...] INC BARRINGTON ZAK, BARRINGTON ZAK Unavailable Unavailable [facility], Unavailable Unavailable [facility] PITER LOZADA Unavailable Unavailable [facility], [facility] Unavailable Unavailable [facility], [facility], Unavailable Unavailable [facility] & Unavailable [facility]available [facility] & Unavailable Unavailable [facility] JERRY EDWARDS Unavailable Unavailable [facility] Un[facility], [facility], Unavailable Unavailable [facility], Unavailable [facility]available [facility] Unavailable Unavailable SERVICES, [facility] Unavailable Unavailable AMBULANCE, [facility] Unavailable Un[facility], [facility] Unavailable Unavailable [facility]AT, [facility] [place] Unavailable Unavailable HOSPITALIST, [facility] Unavailable Unavailable MEDICAL, [facility]ICAL [facility] Unavailable Unavailable MEDICAL, [facility] MEDICAL FRANCISCO JAVIER HUDSON, FRANCISCO JAVIER Unavailable Unavailable [facility] Unavailable Unavailable [facility], [facility] Unavailable Unavailable LLC, [...] B, Unavailable Unavailable ESTELA YO [facility] Unavailable Unavailable EMERGENCY PHYS, [facility] MCGUIRE KER, MCGUIRE KER Unavailable Unavailable [facility], Unavailable Unavailable [facility] Unavailable Unavailable #[phone], [facility] #[phone] CHARLES GUTIERREZ, Unavailable Unavailable CHARLES OLIVAS, KYRA Unavailable Unavailable DEIS[facility] Purpose Continuity of Care Document - 12-02-2007 through 2016 Problems Code Diagnosis DOS Provider Status [id number] OTHER 04-06-2017 [facility] SPECIFIED PHYSICIAN DISORDERS PRACTICE L NOSE AND NASAL SINUSES Z9981 DEPENDENCE 04-06-2017 [facility] ON PHYSICIAN SUPPLEMENTA PRACTICE L L OXYGEN 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 [place] SIS UNS W/O REGIONAL THYROTOXIC MEDICAL CRISIS/STOR M S05151 COMBINED 02-09-2017 [place] FORMS OF REGIONAL AGE-RELATED MEDICAL CATARACT RIGHT EYE H269 UNSPECIFIED 02-09-2017 [place] CATARACT [facility] MEDICAL J449 CHRONIC 02-09-2017 [place] OBSTRUCTIVE REGIONAL PULMONARY MEDICAL DISEASE UNS K219 GASTRO-ESOP 02-09-2017 [place] H REFLUX REGIONAL DISEASE MEDICAL WITHOUT ESOPHAGITIS Q67104 DERMATOCHAL 01-26-2017 [facility] ASIS OF UNS REGIONAL EYE UNS MEDICAL EYELID Y98223 COMBINED 01-26-2017 [place] FORMS OF EYE AGE-RELATED INSTITUTE CATARACT LEFT EYE O13862 COMBINED 01-26-2017 [facility] FORMS OF REGIONAL AGE-RELATED MEDICAL CATARACT BILATERAL H538 OTHER 01-26-2017 [facility] VISUAL REGIONAL DISTURBANCE MEDICAL S J00 ACUTE 01-22-2017 [facility] NASOPHARYNG PHYSICIANS ITIS COMMON GROUP COLD J310 CHRONIC 01-22-2017 [facility] RHINITIS PHYSICIANS GROUP J342 DEVIATED 01-22-2017 [facility] NASAL PHYSICIANS SEPTUM GROUP [id number] PERSONAL 01-18-2017 [facility] OF [facility] NICOTINE INC DEPENDENCE [id number] NONEXUDAT 12-16-2016 [facility] AGE-REL MAC DEGEN RUFUS [...] HEALTH CTR WITH HYPOXIA R5381 OTHER 12-11-2015 [facility] R609 EDEMA 12-11-2015 [facility] UNSPECIFIED N EMERGENCY PHYS Z6825 BODY MASS 12-11-2015 [facility] INDEX BMI REGIONAL 25.0-25.9 MEDICAL ADULT Z7982 SHELTER 12-11-2015 [facility] CURRENT USE REGIONAL OF [place] MEDICAL N85489 PERSONAL 12-11-2015 [facility] HISTORY OF REGIONAL URINARY [...] CTR S TISSUE UNS J9600 ACUTE 08-11-2015 [place] RESPIRATORY HOSPITALIST FAIL UNS HYPOXIA/HYP ERCAPNIA J9690 RESP FAIL 08-07-2015 [facility] UNS UNS N EMERGENCY WHETHER PHYS W/HYPOXIA/H YPERCAPNIA R0602 SHORTNESS 08-07-2015 [facility] R079 CHEST PAIN 08-07-[facility] UNSPECIFIED RADIOLOGY ASSOCIAT R0902 HYPOXEMIA 08-07-2015 [facility] N EMERGENCY PHYS N390 URINARY 08-04-2015 [facility] TRACT N EMERGENCY INFECTION PHYS SITE NOT SPECIFIED Z720 TOBACCO USE 08-04-2015 [facility] Z8541 PERSONAL 08-04-2015 [facility] MALIGNANT MEDICAL NEOPLASM CERVIX UTERI 5950 ACUTE 08-01-2015 [facility]IS [facility] 5990 URINARY 07-29-2015 [facility] TRACT N EMERGENCY INFECTION PHYS SITE NOT SPECIFIED 7881 DYSURIA 07-29-2015 [facility] N EMERGENCY PHYS 496 CHRONIC 07-25-2015 [facility] OBSTRUCTION SERVICES NEC 2449 UNSPECIFIED 02-06-2015 [facility] HYPOTHYROID INCORPORAT ISM 2689 UNSPECIFIED 02-06-2015 [facility] VIT[facility] D [facility] DEFICIENCY INCORPORAT 2724 OTHER AND 02-06-2015 [facility] UNSPECIFIED [facility]STICS INCORPORAT HYPERLIPIDE DAMION 2859 UNSPECIFIED 02-06-2015 [facility] ANEMIA [facility]AG[facility] INCORPORAT 3899 UNSPECIFIED 02-06-2015 [facility]ARING [facility] LOSS INCORPORAT 17386 OBSTRUCTIVE 02-06-2015 [facility]RONIC [facility] BRONCHITIS INCORPORAT WITHOUT EXACERBAT 53425 UNSPECIFIED 02-06-2015 [facility] SLEEP [facility] DISTURBANCE INCORPORAT 01934 OTHER 02-06-2015 [facility] MALAISE AND [facility] FATIGUE INCORPORAT 4878 INFLUENZA 10-19-2014 [facility] WITH OTHER PRIMARY MANIFESTATI CARE CENTER ONS 4618 OTHER ACUTE 07-10-2014 [facility] SINUSITIS [facility] V5869 LONG-TERM 07-06-2014 [facility] (CURRENT) PRIMARY USE OF CARE CENTER OTHER MEDICATIONS 25985 OBSTRUCTIVE 05-30-2013 [facility]RON[facility] BRONCHITIS SERVICES WITH EXACERBATIO N 77329 CHEST PAIN 05-30-2013 [facility] UNSPECIFIED RADIOLOGY ASSOCIAT 15912 OTHER 05-30-2013 [facility] NONSPECIFIC RADIOLOGY ABNORMAL ASSOCIAT FINDING OF LUNG FIELD 4928 OTHER 05-24-[facility] EMPHYSEMA RADIOLOGY ASSOCIAT 90462 OTHER 05-24-2013 [facility] DYSPNEA AND EMERGENCY SERVICES RESPIRATORY ABNORMALITI ES 7867 ABNORMAL 05-23-2013 [facility] CHEST [facility]ESH NE SOUNDS AMBULANCE 515 POSTINFLAMM 03-22-2013 [facility] ATORY RADIOLOGY PULMONARY ASSOCIAT FIBROSIS 70059 OTHER 03-22-2013 [facility] DISEASES OF RADIOLOGY LUNG NOT ASSOCIAT ELSEWHERE CLASSIFIED 7862 COUGH 03-21-2013 [facility] 4660 ACUTE 10-15-2012 [facility] BRONCHITIS [facility] 486 PNEUMONIA, 07-14-2012 [facility] ORGANISM REGIONAL UNSPECIFIED MEDICAL 5180 PULMONARY 07-14-2012 [facility] COLLAPSE [facility]OLOGY ASSOCIAT V0481 NEED 08-04-2011 [facility] PROPHYLACTI PRIMARY C CARE CENTER VACCINATION &INOCULATIO N FLU 2809 UNSPECIFIED 03-04-2011 LABORATORY IRON & DEFICIENCY [facility]ST AN[facility] ICS 4619 ACUTE 07-19-2010 NEW SINUSITIS, [place] [facility] 4779 ALLERGIC 07-19-2010 NEW RHINITIS [place] [facility]USE [facility] UNSPECIFIED 77839 ARTHRALGIA 03-06-2010 [facility] [place] [facility] IBULAR JOINT 4659 ACUTE URIS 06-29-2009 [facility] OF PRIMARY UNSPECIFIED CARE SITE CENTERINC 490 BRONCHITIS 04-28-2009 [facility] NOT EMERGENCY SPECIFIED SERVICES ACUTE OR ASSOCIATES CHRONIC 5199 UNSPECIFIED 04-28-2009 [facility] DISEASE OF RADIOLOGY ASSOCIATES RESPIRATORY P[facility] SYSTEM 34530 PRIMARY LOC 12-20-2008 [facility] PRIMARY OSTEOARTHRO CARE SIS PELVIC CENTERINC REGION&THIG H 74890 PAIN IN 12-20-2008 [facility] [place] [facility] INC REGION AND THIGH 2720 PURE 12-02-2007 [facility] HYPERCHOLES PRIMARY TEROLEMIA CARE CENTERINC 01852 PNEUMONIA 12-02-2007 [facility] DUE TO PRIMARY [...] GENTAMICI N UP TO 80 MG CATARACT 89829 [facility] REMOVAL 7 EYE INSERTION INSTITUTE OF LENS OPH BMTRY 03411 [facility] US 7 EYE ECHOGRAPY INSTITUTE [...] MEDICAL INTRAVENO US INFUS 10 MG CATARACT 42594 [facility] HOANGWCAIO REMOVAL 7 W W INSERTION REGIONAL REGIONAL OF LENS MEDICAL MEDICAL INJECTION J1580 [facility] 7 W W GARAMYCIN REGIONAL REGIONAL MEDICAL MEDICAL GENTAMICI N UP TO 80 MG FUNDUS 60486 [facility] AWOSIK[facility] PHOTOGRAP 7 HY W/INTERPR ETATION & REPORT OPHTH 42573 [facility] AWOSIKA MEDICAL 7 XM&EVAL COMPRE NEW PT 1/> VST CT THORAX 35228 [facility] PAN W/O 7 [facility] CONTRAST INC INC MATERIAL RADIOLOGI 87779 [facility] PAN C EXAM 7 [facility] CHEST 2 INC INC VIEWS FRONTAL&L ATERAL O2 CONC 1 E1390 PREET[facility], PREETI, DEL PORT 6 INC INC 85%/>02 CONC AT [facility] FLW RATE PHRM Q0513 [facility] RELIANT DISPENSIN 6 PHARMACY PHARMACY G FEE SERVICES SERVICES INHALATIO N RX; PER 30 DAYS ALBUTEROL J7620 [facility] RELIANT TO 2.5 6 PHARMACY PHARMACY MG & SERVICES SERVICES IPRATROPI UM BROM TO 0.5 MG HOME E0466 [facility], [place]ENT[place] 6 INC INC R ANY TYPE USED W/NON-INV ASV INTF BASIC 99769 [facility] METABOLIC 6 [facility] PANEL HOLDINGS HOLDINGS CALCIUM TOTAL FEDERALLY G0467 [facility] [address] [facility] CTR CTR CENTER VISIT ESTAB PT PRTBLE E0431 PREETI ÁLVAREZ, GASEOUS 6 INC INC O2 SYS RENT; FLWMTR HUMIDFR&M ASK NATRIURET 45180 [facility] IC 6 W W PEPTIDE [place] [address] [facility] TROPONIN 6 W W QUANTITAT REGIONAL REGIONAL ANGELIA MEDICAL MEDICAL BLOOD 36197 [facility] COUNT 6 W W COMPLETE REGIONAL REGIONAL AUTO&AUTO MEDICAL MEDICAL DIFRNTL WBC BASIC 47556 [facility] METABOLIC 6 W W PANEL REGIONAL REGIONAL CALCIUM MEDICAL MEDICAL TOTAL CREATINE 69054 [facility] KINASE 6 W W TOTAL REGIONAL REGIONAL MEDICAL MEDICAL ECG 86547 [facility] ROUTINE 6 W W ECG REGIONAL REGIONAL W/LEAST MEDICAL MEDICAL 12 LDS TRCG ONLY W/O I&R RADIOLOGI 21897 [facility] EXAM 6 NUVIA CHEST 2 RADIOLOGY VIEWS ASSOCIAT FRONTAL&L ATERAL ECG 76773 [facility] ROUTINE 6 IDALIA ECG [...] N RX; PER 30 [place] [address] [facility] THYROID 6 [facility] [facility] STIMULATI HOLDINGS HOLDINGS NG HORMONE TSH FEDERALLY G0467 [facility] [address] [facility] CTR CTR CENTER VISIT ESTAB PT FEDERALLY G0467 [facility] [address] [facility] CTR CTR CENTER VISIT ESTAB PT PRSSURE E0464 [facility] SUPP VENT 6 INC INC W/VOL CNTRL NONINVASV INTERFCE CUL BACT 35158 [facility] XCPT 6 [place] [facility] URINE HOLDINGS HOLDINGS BLOOD/STO OL AEROBIC ISOL PRTBLE E0431 [facility], GASE[facility] 6 INC INC O2 SYS RENT; FLWMTR HUMIDFR&M ASK PRSSURE E0464 [facility], SUPP VENT 5 INC INC W/VOL CNTRL NONINVASV INTERFCE ALBUTEROL J7620 RELIANT RELIANT TO 2.5 5 PHARMACY PHARMACY MG & SERVICES SERVICES IPRATROPI UM BROM TO 0.5 MG PHRM Q0513 RELIANT RELIANT DISPENSIN 5 PHARMACY PHARMACY G FEE SERVICES SERVICES INHALATIO N RX; PER 30 DAYS PRTBLE E0431 [facility], GASE[facility] 5 INC INC O2 SYS RENT; FLWMTR HUMIDFR&M ASK PORTABLE E0443 [facility] O2 5 INC INC CONTENTS GASEOUS 1 MO SUPPLY=1 UNIT FEDERALLY G0467 [facility] [address] [facility] CTR CTR CENTER VISIT ESTAB PT FEDERALLY G0467 [facility] [address] [facility] [place] [address] [facility] THYROID 5 PIEDAD PIEDAD STIMULATI HOLDINGS HOLDINGS NG HORMONE TSH PRSSURE E0464 [facility], SUPP VENT 5 INC INC W/VOL CNTRL NONINVASV INTERFCE PORTABLE E0443 [facility], O2 5 INC INC CONTENTS GASEOUS 1 MO SUPPLY=1 UNIT PRTBLE E0431 [facility], GASEOUS 5 INC INC O2 SYS RENT; FLWMTR HUMIDFR&M ASK PRSSURE E0464 [facility], SUPP VENT 5 INC INC W/VOL CNTRL NONINVASV INTERFCE COMMODE E0163 [facility], CHAIR 5 INC INC MOBILE OR STATIONAR Y W/FIXED ARMS HOS BED E0260 [facility], SEMI-ELEC 5 INC INC W/ANY TYPE SIDE RAIL W/MATTRSS PRTBLE E0431 [facility], [facility] 5 INC INC O2 SYS RENT; FLWMTR HUMIDFR&M ASK SBSQ 45901 [facility] [address] MAR CARE/DAY HOSPITAL[facility] [address] MINUTES SBSQ 41756 [facility] [address] [facility] [address] MINUTES SBSQ 47809 [facility] [address] [facility] [address] MINUTES INITIAL 75364 [facility] [address] MAR CARE/DAY HOSPITAL[facility] [address] MINUTES GROUND A0425 [facility] MILEAGE 5 MINESH CO MINESH CO PER STATUTE AMBULANCE AMBULANCE MILE RADIOLOGI 95316 [facility] RIBERA 5 [place] EXAMINATI RADIOLOGY ON CHEST ASSOCIAT SINGLE VIEW FRONTAL AMB A0427 [facility] SERVICE 5 [facility] CO MINESH CO ALS EMERGENCY AMBULANCE AMBULANCE TRANSPORT LEVEL 1 ECG 64081 [facility] ROUTINE 5 IDALIA DEISY ECG EMERGENCY W/LEAST PHYS 12 [facility] I&R [facility] 00315 [facility] 5 W [facility] MANA[address]EM[address] [facility] T 30 MIN/< SBSQ 69342 [facility] 5 W [facility] CARE/DAY HOSPITALI [address] MINUTES INITIAL 00297 [facility] 5 W [facility] CARE[facility] [address] MINUTES RADIOLOGI 13895 [facility] BEL C 5 EIDER MAGDALENA EXAMINATI RADIOLOGY ON CHEST ASSOCIAT SINGLE VIEW FRONTAL FEDERALLY G0467 [facility] 5 PRIMARY PRIMARY QUALIFIED CARE [facility] CENTER CENTER VISIT ESTAB PT ALBUTEROL J7620 RELIANT RELIANT TO 2.5 5 PHARMACY PHARMACY MG & SERVICES SERVICES IPRATROPI UM BROM TO 0.5 MG ADMN SET A7003 [facility], VOL 5 INC INC NONFILTR PNEUMAT NEBULIZR [...] BROM TO 0.5 MG ADMN SET A7005 [facility], / VOL 5 INC INC NONFILTR NEBULIZR NON-DISPB L PHRM Q0513 RELI[facility] RELIANT DISPENSIN 5 PHARMACY PHARMACY G FEE SERVICES SERVICES INHALATIO N RX; PER 30 DAYS O2 CONC 1 E1390 [facility] 5 INC INC 85%/>02 CONC AT [facility] FLW RATE PHRM Q0513 RELIANT RELIANT DISPENSIN 5 PHARMACY PHARMACY G FEE SERVICES SERVICES INHALATIO N RX; PER 30 DAYS ALBUTEROL J7620 RELIANT RELIANT TO 2.5 5 PHARMACY PHARMACY MG & SERVICES SERVICES IPRATROPI UM BROM TO 0.5 MG O2 CONC 1 E1390 [facility], [facility] PORT 5 INC INC 85%/>02 CONC AT [facility] FLW RATE PHRM Q0513 RELIANT RELIANT DISPENSIN 5 PHARMACY PHARMACY G FEE SERVICES SERVICES INHALATIO N RX; PER 30 DAYS ALBUTEROL J7620 RELIANT RELIANT TO 2.5 5 PHARMACY PHARMACY MG & SERVICES SERVICES IPRATROPI UM BROM TO 0.5 MG O2 CONC 1 E1390 [place] [address] INC INC 85%/>02 CONC AT PRS FLW RATE BLOOD 68222 [facility] COUNT 5 DIAGNOSTI DIAGNOSTI COMPLETE CS CS AUTO&AUTO INCORPORA INCORPORA DIFRNTL T T WBC IRON 62903 [facility] BINDING 5 DIAGNOSTI DIAGNOSTI CAPACITY CS CS INCORPORA INCORPORA T T DRUG 82831 [facility] SCREEN 5 DIAGNOSTI DIAGNOSTI QUANTITAT CS CS ANGELIA INCORPORA INCORPORA THEOPHYLL T T INE 25 55818 [facility] HYDROXY 5 DIAGNOSTI DIAGNOSTI INCLUDES CS CS FRACTIONS INCORPORA INCORPORA IF T T PERFORMED CYANOCOBA 74432 [facility] JOSLYN 5 DIAGNOSTI DIAGNOSTI VITAMIN CS CS B-12 INCORPORA INCORPORA T T BASIC 03194 [facility] METABOLIC 5 DIAGNOSTI DIAGNOSTI PANEL CS CS CALCIUM [place] [address] [facility] THYROID 5 DIAGNOSTI DIAGNOSTI STIMULATI CS CS NG INCORPORA [place] [address] [facility] IRON 5 DIAGNOSTI DIAGNOSTI CS CS INCORPORA INCORPORA T T O2 CONC 1 E1390 [place] [address] INC INC 85%/>02 CONC AT PRS FLW RATE PHRM Q0513 RELIANT RELIANT DISPENSIN 5 PHARMACY PHARMACY G FEE SERVICES SERVICES INHALATIO N RX; PER 30 DAYS ALBUTEROL J7620 RELIANT RELIANT TO 2.5 5 PHARMACY PHARMACY MG & SERVICES SERVICES IPRATROPI UM BROM TO 0.5 MG O2 CONC 1 E1390 [place] [address] INC INC 85%/>02 CONC AT PRS FLW RATE PHRM Q0513 RELIANT RELIANT DISPENSIN 5 PHARMACY PHARMACY G FEE SERVICES SERVICES INHALATIO N RX; PER 30 DAYS ADMN SET A7003 [place] [address] INC INC NONFILTR PNEUMAT NEBULIZR DISPBL ALBUTEROL J7620 RELIANT RELIANT TO 2.5 5 PHARMACY PHARMACY MG & SERVICES SERVICES IPRATROPI UM BROM TO 0.5 MG O2 CONC 1 E1390 [place] [address] INC INC 85%/>02 CONC AT [facility] FLW RATE PHRM Q0513 RELIANT RELIANT DISPENSIN 5 PHARMACY PHARMACY G FEE SERVICES SERVICES INHALATIO N RX; PER 30 DAYS ALBUTEROL J7620 RELIANT RELIANT TO 2.5 5 PHARMACY PHARMACY MG & SERVICES SERVICES IPRATROPI UM BROM TO 0.5 MG O2 CONC 1 E1390 [facility] PORT 4 INC INC 85%/>02 CONC AT [facility] FLW RATE IAADIADOO 60579 [facility] BARRINGTON ZAK 4 PRIMARY INFLUENZA CARE CENTER PHRM Q0513 RELIANT RELIANT DISPENSIN 4 PHARMACY PHARMACY G FEE SERVICES SERVICES INHALATIO N RX; PER 30 DAYS ALBUTEROL J7620 RELIANT RELIANT TO 2.5 4 PHARMACY PHARMACY MG & SERVICES SERVICES IPRATROPI UM BROM TO 0.5 MG ADMN SET A7005 [facility] VOL 4 INC INC NONFILTR NEBULIZR NON-DISPB L O2 CONC 1 E1390 [facility] PORT 4 INC INC 85%/>02 CONC AT [facility] FLW RATE O2 CONC 1 E1390 [facility] 4 INC INC 85%/>02 CONC AT [facility] FLW RATE PHRM Q0513 RELIANT RELIANT DISPENSIN 4 PHARMACY PHARMACY G FEE SERVICES SERVICES INHALATIO N RX; PER 30 DAYS ALBUTEROL J7620 RELIANT RELIANT TO 2.5 4 PHARMACY PHARMACY MG & SERVICES SERVICES IPRATROPI UM BROM TO 0.5 MG ALBUTEROL J7620 RELIANT RELIANT TO 2.5 4 PHARMACY PHARMACY MG & SERVICES SERVICES IPRATROPI UM BROM TO 0.5 MG ADMN SET A7003 [facility], VOL 4 INC INC NONFILTR PNEUMAT NEBULIZR DISPBL O2 CONC 1 E1390 [facility] [place] 4 INC INC 85%/>02 CONC AT [facility] FLW RATE PHRM Q0513 RELIANT RELIANT DISPENSIN 4 PHARMACY PHARMACY G FEE SERVICES SERVICES INHALATIO N RX; PER 30 DAYS COLLECTIO 41857 [facility] FERRIS ZAK N VENOUS 4 PRIMARY B[facility] U[facility] O2 CONC 1 E1390 [facility], DEL PORT 4 INC INC 85%/>02 CONC AT [facility] FLW RATE PHRM Q0513 RELIANT RELIANT DISPENSIN 4 PHARMACY PHARMACY G FEE SERVICES SERVICES INHALATIO N RX; PER 30 DAYS ALBUTEROL J7620 RELIANT RELIANT TO 2.5 4 PHARMACY PHARMACY MG & SERVICES SERVICES IPRATROPI UM BROM TO 0.5 MG O2 CONC 1 E1390 [facility], [place] 4 INC INC 85%/>02 CONC AT [facility] FLW RATE ADMN SET A7003 PREETI ÁLVAREZ, VOL 4 INC INC NONFILTR PNEUMAT NEBULIZR DISPBL ALBUTEROL J7620 RELIANT RELIANT TO 2.5 4 PHARMACY PHARMACY MG & SERVICES SERVICES IPRATROPI UM BROM TO 0.5 MG PHRM Q0513 RELIANT RELIANT DISPENSIN 4 PHARMACY PHARMACY G FEE SERVICES SERVICES INHALATIO N RX; PER 30 DAYS O2 CONC 1 E1390 [facility] [place] 4 INC INC 85%/>02 CONC AT [facility] FLW RATE O2 CONC 1 E1390 [facility] [place] 4 INC INC 85%/>02 CONC AT [facility] FLW RATE PHRM Q0513 RELIANT RELIANT DISPENSIN 4 PHARMACY PHARMACY G FEE SERVICES SERVICES INHALATIO N RX; PER 30 DAYS ALBUTEROL J7620 RELIANT RELIANT TO 2.5 4 PHARMACY PHARMACY MG & SERVICES SERVICES IPRATROPI UM BROM TO 0.5 MG O2 CONC 1 E1390 [facility], [place] 4 INC INC 85%/>02 CONC AT [facility] FLW RATE PHRM Q0513 RELIANT RELIANT DISPENSIN 4 PHARMACY PHARMACY G FEE SERVICES SERVICES INHALATIO N RX; PER 30 DAYS ALBUTEROL J7620 RELIANT RELIANT TO 2.5 4 PHARMACY PHARMACY MG & SERVICES SERVICES IPRATROPI UM BROM TO 0.5 MG COLLECTIO 23327 ANNA FERRIS ZAK N VENOUS 4 PRIMARY B[facility] URE ADMN SET A7005 PREETI ÁLVAREZ, [...] BROM TO 0.5 MG ADMN SET A7005 [facility], W/ VOL 3 INC INC NONFILTR NEBULIZR NON-DISPB L ALBUTEROL J7620 RELIANT RELIANT TO 2.5 3 PHARMACY PHARMACY MG & SERVICES SERVICES IPRATROPI UM BROM TO 0.5 MG PHRM Q0513 RELIANT RELIANT DISPENSIN 3 PHARMACY PHARMACY G FEE SERVICES SERVICES INHALATIO N RX; PER 30 DAYS O2 CONC 1 E1390 [place] [address] INC INC 85%/>02 CONC AT PRS FLW RATE PHRM Q0513 RELIANT RELIANT DISPENSIN 3 PHARMACY PHARMACY G FEE SERVICES SERVICES INHALATIO N RX; PER 30 DAYS ALBUTEROL J7620 RELIANT RELIANT TO 2.5 3 PHARMACY PHARMACY MG & SERVICES SERVICES IPRATROPI UM BROM TO 0.5 MG O2 CONC 1 E1390 [facility], [place] [address] INC INC 85%/>02 CONC AT PRS FLW RATE ALBUTEROL J7620 RELIANT RELIANT TO 2.5 3 PHARMACY PHARMACY MG & SERVICES SERVICES IPRATROPI UM BROM TO 0.5 MG PHRM Q0513 RELIANT RELIANT DISPENSIN 3 PHARMACY PHARMACY G FEE SERVICES SERVICES INHALATIO N RX; PER 30 DAYS RADIOLOGI 02983 [facility] 3 NUVIA EXAMINATI RADIOLOGY ON CHEST ASSOCIAT SINGLE VIEW FRONTAL CULTURE 33925 [facility] BACTERIAL 3 DIAGNOSTI DIAGNOSTI CS CS QUANTTATI VE COLONY COUNT URINE BASIC 13409 [facility] METABOLIC 3 DIAGNOSTI DIAGNOSTI PANEL CS CS CALCIUM TOTAL BLOOD 13563 [facility] COUNT 3 DIAGNOSTI DIAGNOSTI COMPLETE CS CS AUTO&AUTO DIFRNTL WBC COLLECTIO 02994 ANNA SORIA [place] ZAK N VENOUS 3 PRIMARY BLOOD CARE VENIPUNCT CENTER URE RADIOLOGI 47396 DONA WELLS C EXAM 3 EMERGENCY CHR CHEST 2 SERVICES VIEWS FRONTAL&L ATERAL AMBULANCE A0429 [facility] SERVICE 3 [place] MINESH CO BLS EMERGENCY AMBULANCE AMBULANCE TRANSPORT GROUND A0425 [facility] MILEAGE 3 MINESH [place] MINESH CO PER STATUTE AMBULANCE AMBULANCE MILE CULTURE 97941 [facility] BACTERIAL 3 DIAGNOSTI DIAGNOSTI CS CS QUANTTATI VE COLONY COUNT URINE SUSCEPTIB 13276 [facility] LTY STDY 3 DIAGNOSTI DIAGNOSTI ANTIMICRB CS CS IAL MICRO/AGA R DILUTJ CUL BACT 64934 [facility] AEROBIC 3 DIAGNOSTI DIAGNOSTI ADDL CS CS METHS DEFINITIV E EA ISOL CULTURE 03620 [facility] BCT 3 DIAGNOSTI DIAGNOSTI ISOL&PRSM CS CS PTV ID ISOLATE EA URINE URNLS DIP 40697 ANNA DUMAS CONCHA 3 PRIMARY STICK/TAB CARE LET RGNT CENTER AUTO W/O MICROSCOP Y O2 CONC 1 E1390 [facility] 3 INC INC 85%/>02 CONC AT [facility] FLW RATE PHRM Q0513 RELIANT [...] PER 30 DAYS O2 CONC 1 E1390 [facility] INC INC 85%/>02 CONC AT PRS FLW RATE URNLS DIP 42963 ANNA SORIA [place] ZAK 3 PRIMARY STICK/TAB CARE LET RGNT CENTER AUTO W/O MICROSCOP Y CT THORAX 13975 [facility] 3 NUVIA W/CONTRAS RADIOLOGY T ASSOCIAT MATERIAL CULTURE 05357 [facility] BCT 3 DIAGNOSTI DIAGNOSTI ISOL&PRSM CS CS PTV ID ISOLATE EA URINE URNLS DIP 71310 ANNA CO [place] ZAK 3 PRIMARY STICK/TAB CARE LET RGNT CENTER NON-AUTO W/O MICRSCP SUSCEPTIB 62201 [facility] QUEST LTY STDY 3 DIAGNOSTI DIAGNOSTI ANTIMICRB CS CS IAL MICRO/AGA R DILUTJ CUL BACT 24177 [facility] AEROBIC 3 DIAGNOSTI DIAGNOSTI ADDL CS CS METHS DEFINITIV E EA ISOL AMB A0427 [facility] SERVICE 3 [place] MINESH CO ALS EMERGENCY AMBULANCE AMBULANCE TRANSPORT LEVEL 1 CULTURE 38532 [facility] BACTERIAL 3 DIAGNOSTI DIAGNOSTI CS CS QUANTTATI VE COLONY COUNT URINE GROUND A0425 [facility] MILEAGE 3 MINESH [place] MINESH CO PER STATUTE AMBULANCE AMBULANCE MILE RADIOLOGI 21503 [facility] C EXAM 3 [facility] CHEST 2 RADIOLOGY VIEWS ASSOCIAT FRONTAL&L ATERAL O2 CONC 1 E1390 [facility] INC INC 85%/>02 CONC AT PRSC FLW RATE ADMN SET [id number] [facility] VOL 3 INC INC NONFILTR PNEUMAT NEBULIZR DISPBL PHRM Q0513 RELIANT RELIANT DISPENSIN 3 PHARMACY PHARMACY G FEE SERVICES SERVICES INHALATIO N RX; PER 30 DAYS ALBUTEROL J7620 RELIANT RELIANT TO 2.5 3 PHARMACY PHARMACY MG & SERVICES SERVICES IPRATROPI UM BROM TO 0.5 MG O2 CONC 1 E1390 [facility], [facility] PORT 3 INC INC 85%/>02 CONC AT PRSC FLW RATE NEBULIZER E0570 [facility] WITH 3 INC INC COMPRESSO R PHRM Q0513 RELIANT RELIANT DISPENSIN 3 PHARMACY PHARMACY G FEE SERVICES SERVICES INHALATIO N RX; PER 30 DAYS ALBUTEROL J7620 RELIANT RELIANT TO 2.5 3 PHARMACY PHARMACY MG & SERVICES SERVICES IPRATROPI UM BROM TO 0.5 MG COLLECTIO 12761 ANNA CLEMENTEI N VENOUS 3 PRIMARY B[facility] URE O2 CONC 1 E1390 [facility], [facility] PORT 3 INC INC 85%/>02 CONC AT PRS FLW RATE NEBULIZER E0570 [facility], WITH 3 INC INC COMPRESSO R PHRM Q0513 RELIANT RELIANT DISPENSIN 3 PHARMACY PHARMACY G FEE SERVICES SERVICES INHALATIO N RX; PER 30 DAYS ALBUTEROL J7620 RELIANT RELIANT TO 2.5 3 PHARMACY PHARMACY MG & SERVICES SERVICES IPRATROPI UM BROM TO 0.5 MG O2 CONC 1 E1390 [facility] 3 INC INC 85%/>02 CONC AT PRS FLW RATE NEBULIZER E0570 [facility], WITH 3 INC INC COMPRESSO R PHRM [...] PER 30 DAYS O2 CONC 1 E1390 [facility] 2 INC INC 85%/>02 CONC AT PRS FLW RATE PHRM Q0513 RELIANT RELIANT DISPENSIN 2 PHARMACY PHARMACY G FEE SERVICES SERVICES INHALATIO N RX; PER 30 DAYS ALBUTEROL J7620 RELIANT RELIANT TO 2.5 2 PHARMACY PHARMACY MG & SERVICES SERVICES IPRATROPI UM BROM TO 0.5 MG NEBULIZER E0570 [facility], WITH 2 INC INC COMPRESSO R O2 CONC 1 E1390 [facility] 2 INC INC 85%/>02 CONC AT PRS FLW RATE NEBULIZER E0570 [facility], WITH 2 INC INC COMPRESSO R ADMN SET [id number] [facility], SM VOL 2 INC INC NONFILTR PNEUMAT NEBULIZR DISPBL PHRM Q0513 RELIANT RELIANT DISPENSIN 2 PHARMACY PHARMACY G FEE SERVICES SERVICES INHALATIO N RX; PER 30 DAYS ALBUTEROL J7620 RELIANT RELIANT TO 2.5 2 PHARMACY PHARMACY MG & SERVICES SERVICES IPRATROPI UM BROM TO 0.5 MG O2 CONC 1 E1390 [facility], [place] PORT 2 INC INC 85%/>02 CONC AT PRS FLW RATE NEBULIZER E0570 [facility], WITH 2 INC INC COMPRESSO R RADIOLOGI 44963 [facility] C EXAM 2 [place]UV[place] CHEST 2 RADIOLOGY VIEWS ASSOCIAT FRONTAL&L ATERAL SBSQ 85515 [facility] [address] MINUTES RADIOLOGI 51336 [facility] C EXAM 2 EIDER MAGDALENA CHEST 2 RADIOLOGY VIEWS ASSOCIAT FRONTAL&L ATERAL PHRM Q0513 RELIANT RELIANT DISPENSIN 2 PHARMACY PHARMACY G FEE SERVICES SERVICES INHALATIO N RX; PER 30 DAYS URNLS DIP 54761 ANNA CO [place] ZAK 2 PRIMARY STICK/TAB CARE LET RGNT CENTER AUTO W/O MICROSCOP Y SUSCEPTIB 75413 [facility] LTY STDY 2 DIAGNOSTI DIAGNOSTI ANTIMICRB CS CS IAL MICRO/AGA R DILUTJ CUL BACT 80600 [facility] AEROBIC 2 DIAGNOSTI DIAGNOSTI ADDL CS CS METHS DEFINITIV E EA ISOL CULTURE 31148 [facility] BACTERIAL 2 DIAGNOSTI DIAGNOSTI CS CS QUANTTATI VE COLONY COUNT URINE CULTURE 26431 [facility]ST BCT 2 DIAGNOSTI DIAGNOSTI ISOL&PRSM CS CS PTV ID ISOLATE EA URINE ALBUTEROL J7620 RELIANT RELIANT TO 2.5 2 PHARMACY PHARMACY MG & SERVICES SERVICES IPRATROPI UM BROM TO 0.5 MG O2 CONC 1 E1390 [facility], [facility] PORT 2 INC INC 85%/>02 CONC AT [facility] FLW RATE NEBULIZER E0570 [facility], WITH 2 INC INC COMPRESSO R ADMN SET A7003 [facility], SM VOL 2 INC INC NONFILTR PNEUMAT NEBULIZR DISPBL PHRM Q0513 RELIANT RELIANT DISPENSIN 2 PHARMACY PHARMACY G FEE SERVICES SERVICES INHALATIO N RX; PER 30 DAYS LIPID 15684 [facility] QUEST PANEL 2 DIAGNOSTI DIAGNOSTI CS CS ALBUTEROL J7620 RELIANT RELIANT TO 2.5 2 PHARMACY PHARMACY MG & SERVICES SERVICES IPRATROPI [place] 0[place] [address] [facility] THYROID 2 DIAGNOSTI DIAGNOSTI STIMULATI CS CS NG HORMONE TSH COMPREHEN 91126 [facility] QUEST SIVE 2 DIAGNOSTI DIAGNOSTI METABOLIC CS CS PANEL COLLECTIO 22388 ANNA CO [place] ZAK N VENOUS 2 [facility] CONC 1 E1390 [facility], [facility] 2 INC INC 85%/>02 CONC AT PRS FLW RATE NEBULIZER E0570 [facility], WITH 2 INC INC COMPRESSO R PHRM Q0513 RELIANT RELIANT DISPENSIN 2 PHARMACY PHARMACY G FEE SERVICES SERVICES INHALATIO N RX; PER 30 DAYS ALBUTEROL J7620 RELIANT RELIANT TO 2.5 2 PHARMACY PHARMACY MG & SERVICES SERVICES IPRATROPI UM BROM TO 0.5 MG NEBULIZER E0570 [facility], WITH 2 INC INC COMPRESSO R PHRM Q0513 RELIANT RELIANT DISPENSIN 2 PHARMACY PHARMACY G FEE SERVICES SERVICES INHALATIO N RX; PER 30 DAYS ALBUTEROL J7620 RELIANT RELIANT TO 2.5 2 PHARMACY PHARMACY MG & SERVICES SERVICES IPRATROPI UM BROM TO 0.5 MG ADMN SET [id number] [facility], W/SM VOL 2 INC INC NONFILTR NEBULIZR NON-DISPB L NEBULIZER E0570 [facility], WITH 2 INC INC COMPRESSO R NEBULIZER E0570 [facility], WITH 2 INC INC COMPRESSO R ADMN SET A7003 [facility], SM VOL 2 INC INC NONFILTR PNEUMAT NEBULIZR DISPBL PHARM G0333 RELIANT RELIANT DISPEN 2 PHARMACY PHARMACY FEE INHAL SERVICES SERVICES RX; INITIAL 30-DAY SUPPLY ALBUTEROL J7620 RELIANT RELIANT TO 2.5 2 PHARMACY PHARMACY MG & SERVICES SERVICES IPRATROPI UM BROM TO 0.5 MG NONINVASI 24296 ANNA SORIA [place] ZAK VE 2 PRIMARY EAR/PULSE CARE OXIMETRY CENTER SINGLE DETER CULTURE 33375 LABORATOR LABORATOR BACTERIAL 2 Y & Y & BIODIAGNO BIODIAGNO QUANTTATI STICS STICS VE COLONY COUNT URINE CUL BACT 92893 LABORATOR LABORATOR AEROBIC 2 Y & Y & ADDL BIODIAGNO BIODIAGNO METHS STICS STICS DEFINITIV E EA ISOL SUSCEPTIB 35831 LABORATOR LABORATOR LTY STDY 2 Y & Y & ANTIMICRB BIODIAGNO BIODIAGNO IAL STICS STICS MICRO/AGA R DILUTJ URNLS DIP 45509 ANNA SORIA POCZATEK 2 PRIMARY PAT STICK/TAB CARE LET RGNT CENTER AUTO W/[place] [address] LABORATOR LABORATOR THYROID 1 Y & Y & STIMULATI BIODIAGNO BIODIAGNO NG STICS STICS HORMONE TSH COMPREHEN 52993 LABORATOR LABORATOR SIVE 1 Y & Y & METABOLIC BIODIAGNO BIODIAGNO PANEL STICS STICS LIPID 60684 LABORATOR LABORATOR PANEL 1 Y & Y & BIODIAGNO BIODIAGNO STICS STICS LIPOPROTE 86585 LABORATOR LABORATOR IN DIRECT 1 Y & Y & BIODIAGNO BIODIAGNO MEASUREME STICS STICS NT LDL CHOLESTER OL COLLECTIO 10390 [facility] 1 PRIMARY BLOOD CARE VENIPUNCT CENTER URE COLLECTIO 08966 ANNA NE [place] ZAK N VENOUS 1 PRIMARY BLOOD CARE VENIPUNCT CENTER URE DRUG 84267 LABORATOR LABORATOR SCREEN 1 Y & Y & QUANTITAT BIODIAGNO BIODIAGNO ANGELIA STICS STICS THEOPHYLL INE LIPID 07546 LABORATOR LABORATOR PANEL 1 Y & Y & BIODIAGNO BIODIAGNO STICS STICS BLOOD 16098 LABORATOR LABORATOR COUNT 1 Y & Y & COMPLETE BIODIAGNO BIODIAGNO AUTO&AUTO STICS STICS DIFRNTL WBC IRON 11255 LABORATOR LABORATOR BINDING 1 Y & Y & CAPACITY BIODIAGNO BIODIAGNO STICS STICS LIPOPROTE 55894 LABORATOR LABORATOR IN DIRECT 1 Y & Y & BIODIAGNO BIODIAGNO MEASUREME STICS [place] [address] LABORATOR LABORATOR FERRITIN 1 Y & Y & BIODIAGNO BIODIAGNO STICS STICS CYANOCOBA 31545 LABORATOR LABORATOR JOSLYN 1 Y & Y & VITAMIN BIODIAGNO BIODIAGNO B-12 STICS STICS COMPREHEN 13410 LABORATOR LABORATOR SIVE 1 Y & Y & METABOLIC BIODIAGNO [place] [address] LABORATOR LABORATOR THYROID 1 Y & Y & STIMULATI BIODIAGNO BIODIAGNO [place] [address] LABORATOR LABORATOR FREE 1 Y & Y & THYROXINE BIODIAG[place] [address] LABORATOR LABORATOR IRON 1 Y & Y & BIODIAGNO BIODIAGNO STICS STICS COLLECTIO 35288 ANNA CO [place] ZAK N VENOUS 1 PRIMARY BLOOD CARE VENIPUNCT CENTER URE SUSCEPTIB 81379 LABORATOR LABORATOR LTY STDY 0 Y & Y & ANTIMICRB BIODIAGNO BIODIAGNO IAL STICS STICS MICRO/AGA R DILUTJ CULTURE 11830 LABORATOR LABORATOR BACTERIAL 0 Y & Y & BIODIAGNO BIODIAGNO QUANTTATI STICS STICS VE COLONY COUNT URINE CUL BACT 49696 LABORATOR LABORATOR AEROBIC 0 Y & Y & ADDL BIODIAGNO BIODIAGNO METHS STICS STICS DEFINITIV E EA ISOL THERAPEUT 06288 [facility] [place] [facility] IC 0 [place] [facility] TIC/DX PSC INJECTION SUBQ/IM ADMINISTR G0008 [facility] ATION OF 0 [place] INFLU[facility]ZA [facility] VIRUS PSC VACCINE IIV3 39087 [facility] US VACCINE 0 [place] SPLIT [facility] VIRUS 0.5 PSC ML DOSAGE IM USE INJECTION J1040 [facility] [place] [facility] 0 [place] METH[facility]LPRE [facility] DNISOLONE PSC ACETATE 80 MG THERAPEUT 35833 [facility] [place] IC 0 [place] PROPHYLAC [facility] TIC/DX PSC INJECTION SUBQ/IM INJECTION J1030 [facility] [place] [facility] 0 [place] M[facility]RE [facility] DNISOLONE PSC ACETATE 40 MG COLLECTIO 79735 [facility] N VENOUS 0 CLINIC CLINIC BLOOD LABORATOR [place] [address] [facility] FREE 0 CLINIC CLINIC THYROXINE [place] [address] [facility] THYROID 0 CLINIC CLINIC STIMULATI LABORATOR LABORATOR NG Y Y HORMONE TSH COMPREHEN 02381 [facility] SIVE 0 [facility]IN[facility] CLINIC METABOLIC LABORATOR LABORATOR PANEL Y Y LIPID 62655 [facility] PANEL 0 CLINIC CLINIC LABORATOR LABORATOR Y Y DRUG 26961 [facility] SCREEN 0 CLINIC CLINIC QUANTITAT LABORATOR LABORATOR ANGELIA Y Y THEOPHYLL INE LIPID 12428 [facility] PANEL 0 CLINIC CLINIC LABORATOR LABORATOR Y Y COMPREHEN 71647 [facility] SIVE 0 CLINIC CLINIC METABOLIC [place]OR[place] [address] [facility] THYROID 0 CLINIC CLINIC STIMULATI LABORATOR [place] [address] [facility] FREE 0 CLINIC CLINIC THYROXINE LABORATOR LABORATOR Y Y COLLECTIO 10051 [facility] N VENOUS 0 CLINIC CLINIC BLOOD LABORATOR LABORATOR VENIPUNCT Y Y URE CT THORAX 67517 [facility] [place] PIERRE, 0 RADIOLOGY GAIL L W/CONTRAS T MATERIAL RADIOLOGI 95600 [facility] [place] Ana JEFFERSON EXAM 0 RADIOLOGY [...] PEDIATRIC PEDIATRIC WITH 9 PRODUCTS PRODUCTS COMPRESSO [employer] R LIPID 48182 [facility] PANEL 9 [place] [address] [facility] FREE 9 [place] [address] [facility] STIMULATI NG HORMONE TSH COMPREHEN 23490 [facility] SIVE 9 [facility] METABOLIC PANEL RADIOLOGI 43541 [facility] EXAM 9 [place], CHEST 2 RADIOLOGY JONAS VIEWS K FRONTAL&L ASSOCIATE ATERAL S PSC RADEX HIP 31300 [facility] [place] JR, [facility]AG[facility] ANNITA R L INC COMPLETE MINIMUM 2 VIEWS LIPID 49016 [facility] PANEL [facility] BLOOD 12549 [facility] COUNT 8 [facility] COMPLETE AUTO&AUTO DIFRNTL WBC BASIC 44880 [facility] METABOLIC 8 [facility] [place] [address] [facility] THYROID 8 [facility] STIMULATI NG HORMONE TSH RADIOLOGI 50161 [facility] C EXAM 8 [place] JR, CHEST 2 IMAGING ANNITA R VIEWS INC FRONTAL&L ATERAL INJECTION J0696 ANNA HARRISON, 8 PRIMARY PATITO [facility] PER 250 MG RADIOLOGI 04652 [facility] Y[facility], C EXAM 8 [place] ESTELA B CHEST 2 IMAGING VIEWS INC FRONTAL&L ATERAL Encounters Encounter Start End Date Code Location Performer Type Date OFFICE 97956 [facility] 7 7 PHYSICIAN T NEW 30 PRACTICE MINUTES [facility] 7 W [facility] - 7 7 W [facility] MEDICAL OFFICE 03330 [facility] OUT[facility] 7 7 PHYSICIAN T NEW 10 S GROUP MINUTES [facility] - 7 7 [facility] OUTPATIEN [facility] T OFFICE 43235 [facility] OUTPATIEN 7 7 [facility] T NEW 10 INC MINUTES [facility]OSP[facility] - 7 7 [facility] OUTPATIEN INC [facility] VIVIANE - 7 7 [facility] OUTPATIEN [facility] T OFFICE 34336 ANNA CO OUTPATIEN 6 6 FAMILY T VISIT HEALTH 15 CTR MINUTES [facility]OSP[facility] - 6 6 W [facility] MEDICAL EMERGENCY 89585 [facility] DEPT 6 6 [place] VISIT EMERGENCY HIGH PHYS SEVERITY& THREAT [facility] EMERGENCY 25575 GANESH 6 6 W [facility] T VISIT MEDICAL HIGH/URGE NT SEVERITY OFFICE 46054 ANNA CO OUTPATIEN 6 6 FAMILY T VISIT HEALTH 15 CTR MINUTES OFFICE 66625 ANNA CO OUTPATIEN 6 6 FAMILY T VISIT HEALTH 15 CTR MINUTES OFFICE 70633 ANNA CO OUTPATIEN 5 5 FAMILY T VISIT HEALTH 15 CTR MINUTES OFFICE 59587 ANNA CO OUTPATIEN 5 5 FAMILY T VISIT HEALTH 15 CTR MINUTES EMERGENCY 28409 [facility] DEPT 5 5 [place] DEISY VISIT EMERGENCY HIGH PHYS SEVERITY& THREAT FUNCJ EMERGENCY 85057 [facility] DEPT 5 5 [place] DEISY VISIT EMERGENCY HIGH PHYS SEVERITY& THREAT FUN [facility]OSP[facility] GANESH - 5 5 W [facility] OFFICE 56883 ANNA CO OUTPATIEN 5 5 PRIMARY T VISIT CARE 15 CENTER MINUTES EMERGENCY 20645 JIA WELLS 5 5 [place] [facility]R DEPARTMEN EMERGENCY T VISIT PHYS HIGH/URGE NT SEVERITY OFFICE 71499 [facility] CO OUTPATIEN 5 5 PRIMARY T VISIT CARE 15 CENTER MINUTES OFFICE 97700 ANNA CO OUTPATIEN 4 4 PRIMARY T VISIT CARE 15 CENTER MINUTES OFFICE 51985 AN[facility] CO OUTPATIEN 4 4 PRIMARY T VISIT CARE 15 CENTER MINUTES EMERGENCY 55583 JIA HERNANDEZ 4 4 [place] ROBERT DEPARTMEN EMERGENCY T VISIT PHYS HIGH/URGE NT SEVERITY OFFICE 90974 ANNA CO OUTPATIEN 4 4 PRIMARY T VISIT CARE 15 CENTER MINUTES OFFICE 15831 ANNA CO OUTPATIEN 4 4 PRIMARY T VISIT CARE 15 CENTER MINUTES OFFICE 64405 ANNA CO OUTPATIEN 4 4 PRIMARY T VISIT CARE 15 CENTER MINUTES EMERGENCY 89450 DONA SAMS DEPT 3 3 EMERGENCY VISIT SERVICES HIGH SEVERITY& THREAT FUNCJ OFFICE 51609 [facility] OUTPATIEN 3 3 PRIMARY T VISIT CARE 15 CENTER MINUTES EMERGENCY 26391 DONA WELLS DEPT 3 3 EMERGENCY CHR VISIT SERVICES HIGH SEVERITY& THREAT FUNCJ OFFICE 87210 ANNA CO OUTPATIEN 3 3 PRIMARY T VISIT CARE 15 CENTER MINUTES OFFICE 62792 ANNA CO OUTPATIEN 3 3 PRIMARY T VISIT CARE 15 CENTER MINUTES OFFICE 00777 ANNA CO OUTPATIEN 3 3 PRIMARY T VISIT CARE 15 CENTER MINUTES EMERGENCY 35171 DONA HERNANDEZ 3 3 EMERGENCY ROBERT DEPARTMEN SERVICES T VISIT HIGH/URGE NT SEVERITY OFFICE 51096 ANNA CO OUTPATIEN 3 3 PRIMARY T VISIT CARE 15 CENTER MINUTES OFFICE 28172 ANNA CO OUTPATIEN 3 3 PRIMARY T VISIT CARE 15 CENTER MINUTES OFFICE 94805 [facility] CO OUTPATIEN 2 2 PRIMARY T VISIT CARE 15 CENTER MINUTES OFFICE 90058 [facility] OUTPATIEN 2 2 PRIMARY T VISIT CARE 25 CENTER MINUTES HOSPITAL VIK[facility] - 2 2 W OUTPATIEN REGIONAL T MEDICAL OFFICE 19636 ANNA CO OUTPATIEN 2 2 PRIMARY T VISIT CARE 10 CENTER MINUTES EMERGENCY 88921 DONA WELLS DEPT 2 2 EMERGENCY CHR VISIT SERVICES HIGH SEVERITY& THREAT FUNJ OFFICE 84103 ANNA CO OUTPATIEN 2 2 PRIMARY T VISIT CARE 15 CENTER MINUTES OFFICE 40399 ANNA CO OUTPATIEN 2 2 PRIMARY T VISIT CARE 15 CENTER MINUTES OFFICE 11254 ANNA CO OUTPATIEN 2 2 PRIMARY T VISIT CARE 25 CENTER MINUTES OFFICE 03143 ANNA CO OUTPATIEN 2 2 PRIMARY T VISIT CARE 25 CENTER MINUTES OFFICE 11406 ANNA CO OUTPATIEN 2 2 PRIMARY T VISIT CARE 15 CENTER MINUTES OFFICE 89855 ANNA CO OUTPATIEN 2 2 PRIMARY T VISIT CARE 15 CENTER MINUTES OFFICE 43351 ANNA CO OUTPATIEN 2 2 PRIMARY T VISIT CARE 15 CENTER MINUTES OFFICE 62028 ANNA CO OUTPATIEN 2 2 PRIMARY T VISIT CARE 15 CENTER MINUTES OFFICE 11213 ANNA CO OUTPATIEN 1 1 PRIMARY T VISIT CARE 15 CENTER MINUTES OFFICE 66393 ANNA CO [place] ZAK OUTPATIEN 1 1 PRIMARY T VISIT CARE 15 CENTER MINUTES OFFICE 59677 ANNA CO OUTPATIEN 1 1 PRIMARY T VISIT CARE 10 CENTER MINUTES OFFICE 37063 ANNA CO OUTPATIEN 1 1 PRIMARY T VISIT CARE 15 CENTER MINUTES OFFICE 28289 [facility] [place]H OUTPATIEN 0 0 [place] [facility] 15 PSC MINUTES OFFICE 88995 NEW OUTPATIEN 0 0 [place] [facility] 15 PSC MINUTES OFFICE 14051 [facility], OUTPATIEN 0 0 [place] JACLYN R T VISIT CLINIC 15 PSC MINUTES OFFICE 60997 [facility] [place], OUTPATIEN 0 0 [place] JACLYN R T VISIT CLINIC 15 PSC MINUTES OFFICE 70477 [facility] [place], OUTPATIEN 0 0 [place] JACLYN R T VISIT CLINIC 15 PSC MINUTES OFFICE 00038 [place], OUTPATIEN 0 0 [place] JACLYN R T NEW 20 CLINIC MINUTES PSC CLINIC, ANNA CO FREE 9 9 [facility] 39926 [facility] CO OUTPATIEN 9 9 [facility]IMARY T VISIT CARE 15 [facility]ENTERINC MINUTES CLINIC, ANNA CO FREE 9 9 [facility] OFFICE 01382 ANNA CO OUTPATIEN 9 9 PRIMARY T VISIT CARE 15 CENTERINC MINUTES CLINIC, ANNA CO FREE 9 9 [facility] OFFICE 04429 ANNA CO OUTPATIEN 9 9 PRIMARY T VISIT CARE 15 CENTERINC MINUTES OFFICE 36566 ANNA CO OUTPATIEN 9 9 PRIMARY T VISIT CARE 15 CENTERINC MINUTES CLINIC, ANNA CO FREE 9 9 [facility], ANNA CO FREE 9 9 [facility] OFFICE 36680 ANNA CO OUTPATIEN 9 9 PRIMARY T VISIT CARE 15 CENTERINC MINUTES EMERGENCY 94076 DONA CALLES, DEPT 9 9 EMERGENCY [place] L VISIT SERVICES HIGH SEVERITY& ASSOCIATE THREAT S FUNCJ OFFICE 27189 ANNA SOARES 9 9 PRIMARY T VISIT CARE 25 CENTERINC MINUTES CLINIC, ANNA SORIA FREE 9 9 [facility] OFF[facility] 82212 FANY COLON 8 8 PRIMARY PARRISH S T VISIT CARE 15 CENTERINC MINUTES OFFICE 10540 FANY COLON 8 8 [facility]IMARY [facility]ARR[facility] S T VISIT CARE 15 CENTERINC MINUTES OFFICE 88548 FANY GREEN 8 8 [facility]
--- OUTSIDE RECORDS SUMMARY | 2017-08-26 09:16 | External Medical Summary Rpt | CCD ---
Author Author , [employer] Organization [employer] Address Unknown Phone [email or web address] Immunization Name Date Rout CVX Reac Dose Comm Prov Is Faci e tion ent ider Refu lity Give sed n Infl 10-0 88 999 Hist FQ11 No FQ11 uenz 3-20 oric a, 13 al UF Info rmat ion - Sour ce Unsp ecif ied Infl 10-0 140 999 Hist FQ11 No FQ11 uenz 5-20 oric a, 12 al P-Fr Info ee rmat ion - Sour ce Unsp ecif ied
--- OUTSIDE RECORDS SUMMARY | 2017-08-26 09:16 | External Medical Summary Rpt | CCD ---
Author Author , [employer] Organization [employer] Address Unknown Phone [email or web address] Immunization Name Date Rout CVX Reac Dose [...]
--- OUTSIDE RECORDS SUMMARY | 2017-08-26 09:17 | External Medical Summary Rpt ---
Author Author [facility] Cervantes, [employer] Organization [employer] Address Unknown Phone Unavailable Results Urinalysis dipstick W Reflex Microscopic panel in Urine Observa Value Referen Units Interpr Notes Date tion ce etation Range Appeara CLEAR CLEAR No No No Aug 20 nce of informa informa informa 2016 Urine tion in tion in tion in 4:20 PM source source source data data data Bacteri 1+ O No No No Aug 20 a informa informa informa 2016 [Presen tion in tion in tion in 4:20 PM ce] in source source source Urine data data data sedimen t by Light microsc opy Bilirub NEGATIV NEG No No No Aug 20 in E informa informa informa 2016 [Presen tion in tion in tion in 4:20 PM ce] in source source source Urine data data data by Test strip Erythro 1+ NEG No Abnorma No Aug 20 cytes informa l informa 2016 [Presen tion in tion in 4:20 PM ce] in source source Urine data data Color YELLOW YELLOW No No No Aug 20 of informa informa informa 2016 Urine tion in tion in tion in 4:20 PM source source source data data data Glucose NEG No No No Aug 20 [Mass/vol informati informati informati 2016 4:20 ume] in on in on in on in PM Urine by source source source Test data data data strip Hyaline 10-20 NONE #/lpf No No Aug 20 casts informa informa 2016 [Presen tion in tion in 4:20 PM ce] in source source Urine data data sedimen t by Light microsc opy Ketones NEGATIV NEG mg/dL No No Aug 20 E informa informa 2016 [Presen tion in tion in 4:20 PM ce] in source source Urine data data by Automat ed test strip Mucus NEGATIV NEG No No No Aug 20 [Presen E informa informa informa 2016 ce] in tion in tion in tion in 4:20 PM Urine source source source sedimen data data data t by Light microsc opy Mucus 1+ OCC No No No Aug 20 [Presen informa informa informa 2016 ce] in tion in tion in tion in 4:20 PM Urine source source source sedimen data data data t by Light microsc opy Nitrite NEGATIV NEG No No No Aug 20 E informa informa informa 2016 [Presen tion in tion in tion in 4:20 PM ce] in source source source Urine data data data by Test strip pH of 5.0 - 8.5 No Normal No Aug 20 Urine informati informati 2017 4:20 on in on in PM source source data data Protein NEG mg/dL No No Aug 20 [Mass/vol informati informati 2016 4:20 ume] in on in on in PM Urine by source source Automated data data test strip Erythro OCC 0 rbc/hpf No No Aug 20 cytes informa informa 2016 [Presen tion in tion in 4:20 PM ce] in source source Urine data data sedimen t by Light microsc opy Specific 1.005 - No Normal No Aug 20 gravity 1.030 informati informati 2017 4:20 of Urine on in on in PM source source data data Epithel 5-10 0 - 5 #/hpf No No Aug 20 ial informa informa 2017 cells.s tion in tion in 4:20 PM quamous source source data data [Presen ce] in Urine sedimen t by Microsc opy high power field Urobili 0.2 NEG E.U./dL No No Aug 20 nogen informa informa 2016 [Presen tion in tion in 4:20 PM ce] in source source Urine data data by Test strip Leukocyte O wbc/hpf No No Aug 20 s informati informati 2016 4:20 [#/volume on in on in PM ] in source source Urine data data Urinalysis dipstick W Reflex Microscopic panel in Urine Observa Value Referen Units Interpr Notes Date tion ce etation Range Appeara CLEAR CLEAR No No No Aug 20 nce of informa informa informa 2017 Urine tion in tion in tion in 4:20 PM source source source data data data Bilirub NEGATIV NEG No No No Aug 20 in E informa informa informa 2016 [Presen tion in tion in tion in 4:20 PM ce] in source source source Urine data data data by Test strip Erythro 1+ NEG No Abnorma No Aug 20 cytes informa l informa 2016 [Presen tion in tion in 4:20 PM ce] in source source Urine data data Color YELLOW YELLOW No No No Aug 20 of informa informa informa 2016 Urine tion in tion in tion in 4:20 PM source source source data data data Glucose NEG No No No Aug 20 [Mass/vol informati informati informati 2016 4:20 ume] in on in on in on in PM Urine by source source source Test data data data strip Ketones NEGATIV NEG mg/dL No No Aug 20 E informa informa 2016 [Presen tion in tion in 4:20 PM ce] in source source Urine data data by Automat ed test strip Mucus NEGATIV NEG No No No Aug 20 [Presen E informa informa informa 2016 ce] in tion in tion in tion in 4:20 PM Urine source source source sedimen data data data t by Light microsc opy Nitrite NEGATIV NEG No No No Aug 20 E informa informa informa 2016 [Presen tion in tion in tion in 4:20 PM ce] in source source source Urine data data data by Test strip pH of 5.0 - 8.5 No Normal No Aug 20 Urine informati informati 2016 4:20 on in on in PM source source data data Protein NEG mg/dL No No Aug 20 [Mass/vol informati informati 2016 4:20 ume] in on in on in PM Urine by source source Automated data data test strip Specific 1.005 - No Normal No Aug 20 gravity 1.030 informati informati 2016 4:20 of Urine on in on in PM source source data data Urobili 0.2 NEG E.U./dL No No Aug 20 nogen informa informa 2016 [Presen tion in tion in 4:20 PM ce] in source source Urine data data by Test strip CBC W Auto Differential panel in Blood Observa Value Referen Units Interpr Notes Date tion ce etation Range Basophils 0 - 0.2 K/MM3 Normal No Aug 20 informati 2016 3:50 [#/volume on in PM ] in source Blood by data Automated count Basophils 0.1 - 2.0 % Normal No Oct /100 informati 2016 3:50 leukocyte on in PM s in source Blood by data Automated count Eosinophi 0.0 - 0.4 K/mm3 Normal No Aug 20 ls informati 2016 3:50 [#/volume on in PM ] in source Blood by data Automated count Eosinophi 0.1 - % Normal No Aug 20 ls/100 12.0 informati 2016 3:50 leukocyte on in PM s in source Blood by data Automated count Granulocy 1.8 - 7.8 K/mm3 High No Aug 20 sydni informati 2016 3:50 [#/volume on in PM ] in source Blood by data Automated count Granulocy 37.0 - % High No Aug 20 sydni/100 80.0 informati 2016 3:50 leukocyte on in PM s in source Blood by data Automated count Hematocri 37.0 - % Low No Aug 20 t [Volume 47.0 informati 2016 3:50 on in PM Fraction] source of Blood data Hemoglobi 12.2 - g/dL Low No Aug 20 n 16.2 informati 2016 3:50 [Mass/vol on in PM ume] in source Blood data Lymphocyt 0.7 - 4.5 K/mm3 Normal No Aug 20 es informati 2016 3:50 [#/volume on in PM ] in source Unspecifi data ed specimen by Automated count Lymphocyt 10 - 50.0 % Low No Aug 20 es informati 2016 3:50 [#/volume on in PM ] in source Unspecifi data ed specimen by Automated count Erythrocy 27 - 31.2 pg Low No Aug 20 te mean informati 2016 3:50 corpuscul on in PM ar source hemoglobi data n [Entitic mass] Erythrocy 31.8 - g/dl Low No Aug 20 te mean 35.4 informati 2016 3:50 corpuscul on in PM ar source hemoglobi data n concentra tion [Mass/vol ume] by Automated count Erythrocy 82.2 - fl Normal No Aug 20 te mean 97.8 informati 2016 3:50 corpuscul on in PM ar volume source [Entitic data volume] by Automated count Monocytes 0.1 - 1.0 K/mm3 Normal No Aug 202016 3:50 [#/volume on in PM ] in source Blood by data Automated count Monocytes 1.7 - 9.3 % Normal No Aug 20 inform2016 3:50 leukocyte on in PM s in source Blood by data Automated count Platelet 7.4 - fl Normal No Aug 20 mean 10.4 2016 3:50 volume on in PM [Entitic source volume] data in Blood by Automated count Platelets 142 - 424 K/mm3 No No Aug 20 informati informati 2016 3:50 [#/volume on in on in PM ] in source source Blood data data Erythrocy 4.2 - 5.4 M/mm3 Low No Aug 20 sydni ati 2016 3:50 [#/volume on in PM ] in source Amniotic data fluid Erythrocy 11.5 - % Normal No Aug 20 te 17.5 ati 2016 3:50 distribut on in PM ion width source [Entitic data volume] by Automated count Leukocyte 4.8 - K/MM3 High No Aug 20 s 10.8 ati 2016 3:50 [#/volume on in PM ] in source Blood data Differential panel, method unspecified - Observa Value Referen Units Interpr Notes Date tion ce etation Range Hypochr 1+ No No No No Aug 20 omia informa informa informa inform2016 [Presen tion in tion in tion in tion in 3:50 PM ce] in source source source source Blood data data data data LYMPH 4 10 - 50 % Low No Aug 202016 tion in 3:50 PM source data Metamyelo 0 - 1 % Normal No Aug 20 cytes/100 ati 2016 3:50 on in PM leukocyte source s in data Blood by Manual count Monocytes 2 - 9 % Normal No Aug 202016 3:50 leukocyte on in PM s in source Blood by data Automated count Platele NORMAL No No No No Aug 20 ts informa informa informa informa 2016 [Presen tion in tion in tion in tion in 3:50 PM ce] in source source source source Blood data data data data by Light microsc opy Neutrophi 42 - 76 % High No Aug 20 ls 2016 3:50 [#/volume on in PM ] in source Blood by data Automated count Cells No #CELLS No No Aug 20 Counted informati ati 2016 3:50 Total [#] on in on in on in PM in Blood source source source data data data Comprehensive metabolic 2000 panel in Serum or Plasma Observa Value Referen Units Interpr Notes Date tion ce etation Range Albumin/G 1.1 - 1.8 No Low No Aug 20 lobulin informati informati 2016 3:50 [Mass on in on in PM ratio] in source source Serum or data data Plasma Albumin 3.4 - 5.0 gm/dL Low No Aug 20 [Mass/vol informati 2016 3:50 ume] in on in PM Serum or source Plasma data Alkaline 46 - 116 U/L Normal No Aug 20 phosphata informati 2016 3:50 se on in PM [Enzymati source c data activity/ volume] in Serum or Plasma Bilirubin 0.2 - 1.0 mg/dL Normal No Aug 20 .total informati 2016 3:50 [Mass/vol on in PM ume] in source Serum or data Plasma Urea 7 - 18 mg/dL Normal No Aug 20 nitrogen informati 2016 3:50 [Mass/vol on in PM ume] in source Serum or data Plasma Calcium 8.5 - mg/dL Normal No Aug 20 [Mass/vol 10.1 informati 2016 3:50 ume] in on in PM Serum or source Plasma data Chloride 98 - 107 mmoL/L Normal No Aug 20 [Moles/vo informati 2016 3:50 lume] in on in PM Serum or source Plasma data Carbon 21.0 - mmoL/L Normal No Aug 20 dioxide, 32.0 informati 2016 3:50 total on in PM [Moles/vo source lume] in data Serum or Plasma Creatinin 0.55 - mg/dL Normal No Aug 20 e 1.02 informati 2016 3:50 [Mass/vol on in PM ume] in source Serum or data Plasma Creatinin 50 - 200 ML/MIN Low No Aug 20 e renal informati 2016 3:50 clearance on in PM source predicted data by Cockcroft -Gault formula Estimated 59- ML/MIN No REFERENCE Aug 20 informati RANGE: 2017 3:50 glomerula on in >60 PM r source ML/MIN/1. filtratio data 73 SQUARE n rate METERSIf (GF this patient is -A merican, then multiply theresult by 1.210. Globulin 1.3 - 3.2 gm/dL High No Aug 20 [Mass/vol informati 2016 3:50 ume] in on in PM Serum source data Glucose 74 - 106 mg/dL High No Aug 20 [Mass/vol informati 2016 3:50 ume] in on in PM Serum or source Plasma data Potassium 3.5 - 5.1 mmoL/L Normal No Aug 202016 3:50 [Moles/vo on in PM lume] in source Serum or data Plasma Sodium 136 - 145 mmoL/L Normal No Aug 20 [Moles/vo 2016 3:50 lume] in on in PM Serum or source Plasma data Aspartate 15 - 37 U/L Low No Aug 202016 3:50 aminotran on in PM sferase source [Enzymati data c activity/ volume] in Serum or Plasma Alanine 12 - 78 U/L Normal No Aug 20 aminotran 2016 3:50 sferase on in PM [Enzymati source c data activity/ volume] in Serum or Plasma Protein 6.4 - 8.2 gm/dL Normal No Aug 20 [Mass/vol 2016 3:50 ume] in on in PM Serum or source Plasma data Lipase [Enzymatic activity/volume] in Serum or Plasma Observa Value Referen Units Interpr Notes Date tion ce etation Range Lipase 73 - 393 U/L Low No Aug 20 [Enzymati 2016 3:50 c on in PM activity/ source volume] data in Serum or Plasma CBC W Auto Differential panel in Blood Observa Value Referen Units Interpr Notes Date tion ce etation Range Basophils 0 - 0.2 K/MM3 Normal No May 092016 4:15 [#/volume on in AM ] in source Blood by data Automated count Basophils 0.1 - 2.0 % Normal No May 09 informati 2016 4:15 leukocyte on in AM s in source Blood by data Automated count Eosinophi 0.0 - 0.4 K/mm3 Normal No May 09 ls ati 2016 4:15 [#/volume on in AM ] in source Blood by data Automated count Eosinophi 0.1 - % Normal No May 09 12.0 inform2016 4:15 leukocyte on in AM s in source Blood by data Automated count Granulocy 1.8 - 7.8 K/mm3 Normal No May 092016 4:15 [#/volume on in AM ] in source Blood by data Automated count Granulocy 37.0 - % Normal No Drew 8 sydni/100 80.0 informati 2017 4:15 leukocyte on in AM s in source Blood by data Automated count Hematocri 37.0 - % Low No May 09 t [Volume 47.0 informati 2016 4:15 on in AM Fraction] source of Blood data Hemoglobi 12.2 - g/dL Low No May 09 n 16.2 informati 2017 4:15 [Mass/vol on in AM ume] in source Blood data Lymphocyt 0.7 - 4.5 K/mm3 Normal No May 09 es informati 2017 4:15 [#/volume on in AM ] in source Unspecifi data ed specimen by Automated count Lymphocyt 10 - 50.0 % Normal No May 09 es informati 2016 4:15 [#/volume on in AM ] in source Unspecifi data ed specimen by Automated count Erythrocy 27 - 31.2 pg Normal No May 09 te mean informati 2016 4:15 corpuscul on in AM ar source hemoglobi data n [Entitic mass] Erythrocy 31.8 - g/dl Low No May 09 te mean 35.4 informati 2017 4:15 corpuscul on in AM ar source hemoglobi data n concentra tion [Mass/vol ume] by Automated count Erythrocy 82.2 - fl Normal No May 09 te mean 97.8 informati 2017 4:15 corpuscul on in AM ar volume source [Entitic data volume] by Automated count Monocytes 0.1 - 1.0 K/mm3 Normal No May 09 informati 2016 4:15 [#/volume on in AM ] in source Blood by data Automated count Monocytes 1.7 - 9.3 % Normal No May 09 / informati 2017 4:15 leukocyte on in AM s in source Blood by data Automated count Platelet 7.4 - fl Normal No May 09 mean 10.4 informati 2017 4:15 volume on in AM [Entitic source volume] data in Blood by Automated count Platelets 142 - 424 K/mm3 Normal No May 09 informati 2017 4:15 [#/volume on in AM ] in source Blood data Erythrocy 4.2 - 5.4 M/mm3 Low No May 09 sydni informati 2017 4:15 [#/volume on in AM ] in source Amniotic data fluid Erythrocy 11.5 - % Normal No May 09 te 17.5 informati 2017 4:15 distribut on in AM ion width source [Entitic data volume] by Automated count Leukocyte 4.8 - K/MM3 No No May 09 s 10.8 informati informati 2016 4:15 [#/volume on in on in AM ] in source source Blood data data Basic metabolic panel in Blood Observa Value Referen Units Interpr Notes Date tion ce etation Range Urea 7 - 18 mg/dL Normal No May 09 nitrogen informati 2016 4:15 [Mass/vol on in AM ume] in source Serum or data Plasma Calcium 8.5 - mg/dL Normal No May 09 [Mass/vol 10.1 informati 2016 4:15 ume] in on in AM Serum or source Plasma data Chloride 98 - 107 mmoL/L High No May 09 [Moles/vo informati 2016 4:15 lume] in on in AM Serum or source Plasma data Carbon 21.0 - mmoL/L Normal No May 09 dioxide, 32.0 informati 2016 4:15 total on in AM [Moles/vo source lume] in data Serum or Plasma Creatinin 0.55 - mg/dL Normal No May 09 e 1.02 informati 2016 4:15 [Mass/vol on in AM ume] in source Serum or data Plasma Creatinin 50 - 200 ML/MIN Normal No May 09 e renal informati 2016 4:15 clearance on in AM source predicted data by Cockcroft -Gault formula Estimated 59- ML/MIN No REFERENCE May 09 informati RANGE: 2017 4:15 glomerula on in >60 AM r source ML/MIN/1. filtratio data 73 SQUARE n rate METERSIf (GF this patient is -A merican, then multiply theresult by 1.210. Glucose 74 - 106 mg/dL High No May 09 [Mass/vol informati 2016 4:15 ume] in on in AM Serum or source Plasma data Potassium 3.5 - 5.1 mmoL/L Normal No May 09 informati 2016 4:15 [Moles/vo on in AM lume] in source Serum or data Plasma Sodium 136 - 145 mmoL/L Normal No May 09 [Moles/vo informati 2016 4:15 lume] in on in AM Serum or source Plasma data CBC W Auto Differential panel in Blood Observa Value Referen Units Interpr Notes Date ti ce etation Range Basophils 0 - 0.2 K/MM3 Normal No May 08 informati 2016 [#/volume on in 12:28 PM ] in source Blood by data Automated count Basophils 0.1 - 2.0 % Normal No May 08 /100 2016 leukocyte on in 12:28 PM s in source Blood by data Automated count Eosinophi 0.0 - 0.4 K/mm3 Normal No May 08 ls 2016 [#/volume on in 12:28 PM ] in source Blood by data Automated count Eosinophi 0.1 - % Normal No May 08 ls/100 12.0 inform2016 leukocyte on in 12:28 PM s in source Blood by data Automated count Granulocy 1.8 - 7.8 K/mm3 High No May 08 sydni 2016 [#/volume on in 12:28 PM ] in source Blood by data Automated count Granulocy 37.0 - % High No May 08 sydni/100 80.0 2016 leukocyte on in 12:28 PM s in source Blood by data Automated count Hematocri 37.0 - % Normal No May 08 t [Volume 47.0 2016 on in 12:28 PM Fraction] source of Blood data Hemoglobi 12.2 - g/dL Normal No May 08 n 16.2 2016 [Mass/vol on in 12:28 PM ume] in source Blood data Lymphocyt 0.7 - 4.5 K/mm3 Normal No May 08 es 2016 [#/volume on in 12:28 PM ] in source Unspecifi data ed specimen by Automated count Lymphocyt 10 - 50.0 % Low No May 08 es 2016 [#/volume on in 12:28 PM ] in source Unspecifi data ed specimen by Automated count Erythrocy 27 - 31.2 pg Normal No May 08 te mean 2016 corpuscul on in 12:28 PM ar source hemoglobi data n [Entitic mass] Erythrocy 31.8 - g/dl Low No May 08 te mean 35.4 2016 corpuscul on in 12:28 PM ar source hemoglobi data n concentra tion [Mass/vol ume] by Automated count Erythrocy 82.2 - fl Normal No May 08 te mean 97.8 2016 corpuscul on in 12:28 PM ar volume source [Entitic data volume] by Automated count Monocytes 0.1 - 1.0 K/mm3 Normal No May 082016 [#/volume on in 12:28 PM ] in source Blood by data Automated count Monocytes 1.7 - 9.3 % Normal No May 082016 leukocyte on in 12:28 PM s in source Blood by data Automated count Platelet 7.4 - fl Normal No May 08 mean 10.4 2016 volume on in 12:28 PM [Entitic source volume] data in Blood by Automated count Platelets 142 - 424 K/mm3 Normal No May 082016 [#/volume on in 12:28 PM ] in source Blood data Erythrocy 4.2 - 5.4 M/mm3 Normal No May 08 sydni 2016 [#/volume on in 12:28 PM ] in source Amniotic data fluid Erythrocy 11.5 - % Normal May 08 te 17.5 2016 distribut on in 12:28 PM ion width source [Entitic data volume] by Automated count Leukocyte 4.8 - K/MM3 High No May 08 s 10.8 2016 [#/volume on in 12:28 PM ] in source Blood data Differential panel, method unspecified - Observa Value Referen Units Interpr Notes Date tion ce etation Range Eosinophi 0 - 3 % Normal No May 08 ls/100 2016 leukocyte on in 12:28 PM s in source Blood by data Manual count LYMPH 8 10 - 50 % Low No May 082016 tion in 12:28 source PM data Monocytes 2 - 9 % Normal No May 082016 leukocyte on in 12:28 PM s in source Blood by data Automated count Platele NORMAL No No No No May 08 ts informa informa informa informa 2016 [Presen tion in tion in tion in tion in 12:28 ce] in source source source source PM Blood data data data data by Light microsc opy Neutrophi 42 - 76 % High No May 08 ls 2016 [#/volume on in 12:28 PM ] in source Blood by data Automated count Cells No #CELLS No No May 08 Counted ati ati 2016 Total [#] on in on in on in 12:28 PM in Blood source source source data data data Comprehensive metabolic 2000 panel in Serum or Plasma Observa Value Referen Units Interpr Notes Date tion ce etation Range Albumin/G 1.1 - 1.8 No Low No May 08 lobulin informati informati 2016 [Mass on in on in 12:28 PM ratio] in source source Serum or data data Plasma Albumin 3.4 - 5.0 gm/dL Low No May 08 [Mass/vol informati 2016 ume] in on in 12:28 PM Serum or source Plasma data Alkaline 46 - 116 U/L Normal No May 08 phosphata informati 2016 se on in 12:28 PM [Enzymati source c data activity/ volume] in Serum or Plasma Bilirubin 0.2 - 1.0 mg/dL Normal No May 08 .total informati 2016 [Mass/vol on in 12:28 PM ume] in source Serum or data Plasma Urea 7 - 18 mg/dL Normal No May 08 nitrogen informati 2016 [Mass/vol on in 12:28 PM ume] in source Serum or data Plasma Calcium 8.5 - mg/dL Normal No May 08 [Mass/vol 10.1 informati 2016 ume] in on in 12:28 PM Serum or source Plasma data Chloride 98 - 107 mmoL/L Normal No May 08 [Moles/vo informati 2016 lume] in on in 12:28 PM Serum or source Plasma data Carbon 21.0 - mmoL/L Normal No May 08 dioxide, 32.0 informati 2017 total on in 12:28 PM [Moles/vo source lume] in data Serum or Plasma Creatinin 0.55 - mg/dL Normal No May 08 e 1.02 informati 2016 [Mass/vol on in 12:28 PM ume] in source Serum or data Plasma Creatinin 50 - 200 ML/MIN Normal No May 08 e renal informati 2016 clearance on in 12:28 PM source predicted data by Cockcroft -Gault formula Estimated 59- ML/MIN No REFERENCE May 08 informati RANGE: 2017 glomerula on in >60 12:28 PM r source ML/MIN/1. filtratio data 73 SQUARE n rate METERSIf (GF this patient is -A merican, then multiply theresult by 1.210. Globulin 1.3 - 3.2 gm/dL High No May 08 [Mass/vol informati 2017 ume] in on in 12:28 PM Serum source data Glucose 74 - 106 mg/dL High No May 08 [Mass/vol informati 2016 ume] in on in 12:28 PM Serum or source Plasma data Potassium 3.5 - 5.1 mmoL/L Normal No May 08 inform2016 [Moles/vo on in 12:28 PM lume] in source Serum or data Plasma Sodium 136 - 145 mmoL/L Normal No May 08 [Moles/vo informati 2016 lume] in on in 12:28 PM Serum or source Plasma data Aspartate 15 - 37 U/L Low No May 08 inform2016 aminotran on in 12:28 PM sferase source [Enzymati data c activity/ volume] in Serum or Plasma Alanine 12 - 78 U/L Normal No May 08 aminotran inform2016 sferase on in 12:28 PM [Enzymati source c data activity/ volume] in Serum or Plasma Protein 6.4 - 8.2 gm/dL Normal No May 08 [Mass/vol informati 2016 ume] in on in 12:28 PM Serum or source Plasma data Urinalysis dipstick W Reflex Microscopic panel in Urine Observa Value Referen Units Interpr Notes Date tion ce etation Range Appeara SL CLEAR No No No Apr 12 nce of CLOUDY informa informa informa 2016 Urine tion in tion in tion in 12:40 source source source PM data data data Bacteri 4+ O No No No Apr 12 a informa informa informa 2016 [Presen tion in tion in tion in 12:40 ce] in source source source PM Urine data data data sedimen t by Light microsc opy Bilirub NEGATIV NEG No No No Apr 12 in E informa informa informa 2016 [Presen tion in tion in tion in 12:40 ce] in source source source PM Urine data data data by Test strip Erythro 2+ NEG No Abnorma No Apr 12 cytes informa l informa 2016 [Presen tion in tion in 12:40 ce] in source source PM Urine data data Color DK YELLOW No No No Apr 12 of YELLOW informa informa informa 2017 Urine tion in tion in tion in 12:40 source source source PM data data data Glucose NEG No No No Apr 12 [Mass/vol informati informati informati 2016 ume] in on in on in on in 12:40 PM Urine by source source source Test data data data strip Ketones TRACE NEG mg/dL Abnorma No Apr 12 l informa 2016 [Presen tion in 12:40 ce] in source PM Urine data by Automat ed test strip Mucus TRACE NEG No Abnorma No Apr 12 [Presen informa l informa 2016 ce] in tion in tion in 12:40 Urine source source PM sedimen data data t by Light microsc opy Mucus 4+ OCC No No No Apr 12 [Presen informa informa informa 2016 ce] in tion in tion in tion in 12:40 Urine source source source PM sedimen data data data t by Light microsc opy Nitrite NEGATIV NEG No No No Apr 12 E informa informa informa 2016 [Presen tion in tion in tion in 12:40 ce] in source source source PM Urine data data data by Test strip pH of 5.0 - 8.5 No Normal No Apr 12 Urine informati informati 2017 on in on in 12:40 PM source source data data Protein NEG mg/dL High No Apr 12 [Mass/vol informati 2017 ume] in on in 12:40 PM Urine by source Automated data test strip Erythro 3-5 0 rbc/hpf No No Apr 12 cytes informa informa 2017 [Presen tion in tion in 12:40 ce] in source source PM Urine data data sedimen t by Light microsc opy Specific 1.005 - No Normal No Apr 12 gravity 1.030 informati informati 2017 of Urine on in on in 12:40 PM source source data data Epithel 3-5 0 - 5 #/hpf No No Apr 12 ial informa informa 2017 cells.s tion in tion in 12:40 quamous source source PM data data [Presen ce] in Urine sedimen t by Microsc opy high power field Urobili 0.2 NEG E.U./dL No No Apr 12 nogen informa informa 2017 [Presen tion in tion in 12:40 ce] in source source PM Urine data data by Test strip Leukocy [3 O wbc/hpf No No Apr 12 sydni wbc/hpf informa informa 2016 [#/volu ; 5 tion in tion in 12:40 me] in wbc/hpf source source PM Urine ] data data Thyroxine (T4) free [Mass/volume] in Serum or Plasma Observa Value Referen Units Interpr Notes Date tion ce etation Range Thyroxine 0.76 - ng/dL High No Apr 12 (T4) 1.46 inform2016 free on in 11:25 AM [Mass/vol source ume] in data Serum or Plasma Thyrotropin [Units/volume] in Serum or Plasma Observa Value Referen Units Interpr Notes Date tion ce etation Range Thyrotrop 0.358 - uIU/ml Normal No Apr 12 in 3.740 inform2016 [Units/vo on in 11:25 AM lume] in source Serum or data Plasma CBC W Auto Differential panel in Blood Observa Value Referen Units Interpr Notes Date tion ce etation Range Basophils 0 - 0.2 K/MM3 Normal No Apr 12 inform2016 [#/volume on in 11:25 AM ] in source Blood by data Automated count Basophils 0.1 - 2.0 % Normal No Apr 12 inform2016 leukocyte on in 11:25 AM s in source Blood by data Automated count Eosinophi 0.0 - 0.4 K/mm3 Normal No Apr 12 ls ati 2016 [#/volume on in 11:25 AM ] in source Blood by data Automated count Eosinophi 0.1 - % Normal No Apr 12 ls/100 12.0 inform2016 leukocyte on in 11:25 AM s in source Blood by data Automated count Granulocy 1.8 - 7.8 K/mm3 High No Apr 12 sydni 2016 [#/volume on in 11:25 AM ] in source Blood by data Automated count Granulocy 37.0 - % High No Apr 12 sydni/100 80.0 informati 2016 leukocyte on in 11:25 AM s in source Blood by data Automated count Hematocri 37.0 - % Normal Apr 12 t [Volume 47.0 ati 2016 on in 11:25 AM Fraction] source of Blood data Hemoglobi 12.2 - g/dL Low No Apr 12 n 16.2 informati 2016 [Mass/vol on in 11:25 AM ume] in source Blood data Lymphocyt 0.7 - 4.5 K/mm3 Normal No Apr 12 es inform2016 [#/volume on in 11:25 AM ] in source Unspecifi data ed specimen by Automated count Lymphocyt 10 - 50.0 % Low No Apr 12 es inform2016 [#/volume on in 11:25 AM ] in source Unspecifi data ed specimen by Automated count Erythrocy 27 - 31.2 pg Normal No Apr 12 te mean 2016 corpuscul on in 11:25 AM ar source hemoglobi data n [Entitic mass] Erythrocy 31.8 - g/dl Low No Apr 12 te mean 35.4 2016 corpuscul on in 11:25 AM ar source hemoglobi data n concentra tion [Mass/vol ume] by Automated count Erythrocy 82.2 - fl Normal No Apr 12 te mean 97.8 2016 corpuscul on in 11:25 AM ar volume source [Entitic data volume] by Automated count Monocytes 0.1 - 1.0 K/mm3 Normal No Apr 12 inform2016 [#/volume on in 11:25 AM ] in source Blood by data Automated count Monocytes 1.7 - 9.3 % Normal No Apr 122016 leukocyte on in 11:25 AM s in source Blood by data Automated count Platelet 7.4 - fl Normal Apr 12 mean 10.4 2016 volume on in 11:25 AM [Entitic source volume] data in Blood by Automated count Platelets 142 - 424 K/mm3 Normal No Apr 12 inform2016 [#/volume on in 11:25 AM ] in source Blood data Erythrocy 4.2 - 5.4 M/mm3 Low No Apr 12 sydni inform2016 [#/volume on in 11:25 AM ] in source Amniotic data fluid Erythrocy 11.5 - % Normal No Apr 12 te 17.5 2016 distribut on in 11:25 AM ion width source [Entitic data volume] by Automated count Leukocyte 4.8 - K/MM3 High No Apr 12 s 10.8 2016 [#/volume on in 11:25 AM ] in source Blood data Differential panel, method unspecified - Observa Value Referen Units Interpr Notes Date tion ce etation Range Eosinophi 0 - 3 % Normal No Apr 12 ls/100 2016 leukocyte on in 11:25 AM s in source Blood by data Manual count LYMPH 5 10 - 50 % Low No Apr 12 inform2016 tion in 11:25 source AM data Monocytes 2 - 9 % Normal No Apr 122016 leukocyte on in 11:25 AM s in source Blood by data Automated count Platele NORMAL No No No No Apr 12 ts informa informa informa informa 2016 [Presen tion in tion in tion in tion in 11:25 ce] in source source source source AM Blood data data data data by Light microsc opy Neutrophi 42 - 76 % High No Apr 12 ls informati 2017 [#/volume on in 11:25 AM ] in source Blood by data Automated count Cells No #CELLS No No Apr 12 Counted informati informati informati 2017 Total [#] on in on in on in 11:25 AM in Blood source source source data data data Amylase [Enzymatic activity/volume] in Serum or Plasma Observa Value Referen Units Interpr Notes Date tion ce etation Range Amylase 25 - 115 U/L Normal No Apr 12 [Enzymati informati 2017 c on in 11:25 AM activity/ source volume] data in Serum or Plasma Comprehensive metabolic 2000 panel in Serum or Plasma Observa Value Referen Units Interpr Notes Date tion ce etation Range Albumin/G 1.1 - 1.8 No Low No Apr 12 lobulin informati informati 2016 [Mass on in on in 11:25 AM ratio] in source source Serum or data data Plasma Albumin 3.4 - 5.0 gm/dL Low No Apr 12 [Mass/vol informati 2016 ume] in on in 11:25 AM Serum or source Plasma data Alkaline 46 - 116 U/L Normal No Apr 12 phosphata informati 2016 se on in 11:25 AM [Enzymati source c data activity/ volume] in Serum or Plasma Bilirubin 0.2 - 1.0 mg/dL Normal No Apr 12 .total informati 2016 [Mass/vol on in 11:25 AM ume] in source Serum or data Plasma Urea 7 - 18 mg/dL Normal No Apr 12 nitrogen informati 2016 [Mass/vol on in 11:25 AM ume] in source Serum or data Plasma Calcium 8.5 - mg/dL Normal No Apr 12 [Mass/vol 10.1 informati 2016 ume] in on in 11:25 AM Serum or source Plasma data Chloride 98 - 107 mmoL/L Normal No Apr 12 [Moles/vo informati 2016 lume] in on in 11:25 AM Serum or source Plasma data Carbon 21.0 - mmoL/L High No Apr 12 dioxide, 32.0 informati 2017 total on in 11:25 AM [Moles/vo source lume] in data Serum or Plasma Creatinin 0.55 - mg/dL Normal No Apr 12 e 1.02 informati 2017 [Mass/vol on in 11:25 AM ume] in source Serum or data Plasma Creatinin 50 - 200 ML/MIN Low No Apr 12 e renal informati 2017 clearance on in 11:25 AM source predicted data by Cockcroft -Gault formula Estimated 59- ML/MIN No REFERENCE Apr 12 informati RANGE: 2017 glomerula on in >60 11:25 AM r source ML/MIN/1. filtratio data 73 SQUARE n rate METERSIf (GF this patient is -A merican, then multiply theresult by 1.210. Globulin 1.3 - 3.2 gm/dL High No Apr 12 [Mass/vol informati 2016 ume] in on in 11:25 AM Serum source data Glucose 74 - 106 mg/dL High No Apr 12 [Mass/vol informati 2016 ume] in on in 11:25 AM Serum or source Plasma data Potassium 3.5 - 5.1 mmoL/L Normal No Apr 12 inform2016 [Moles/vo on in 11:25 AM lume] in source Serum or data Plasma Sodium 136 - 145 mmoL/L Normal No Apr 12 [Moles/vo informati 2016 lume] in on in 11:25 AM Serum or source Plasma data Aspartate 15 - 37 U/L Low No Apr 12 informati 2016 aminotran on in 11:25 AM sferase source [Enzymati data c activity/ volume] in Serum or Plasma Alanine 12 - 78 U/L Normal No Apr 12 aminotran informati 2016 sferase on in 11:25 AM [Enzymati source c data activity/ volume] in Serum or Plasma Protein 6.4 - 8.2 gm/dL Normal No Apr 12 [Mass/vol informati 2016 ume] in on in 11:25 AM Serum or source Plasma data Lipase [Enzymatic activity/volume] in Serum or Plasma Observa Value Referen Units Interpr Notes Date tion ce etation Range Lipase 73 - 393 U/L Normal No Apr 12 [Enzymati informati 2017 c on in 11:25 AM activity/ source volume] data in Serum or Plasma
[2017-08-26 09:22] LABS: HEMOGLOBIN 11.6 g/dL (12.2-16.2); LYMPH # 1.7 K/mm3 (0.7-4.5); LYMPH % 19.1 % (10-50.0)
[2017-08-26 10:18] LABS: URINE BILIRUBIN - DIPSTICK NEGATIVE (NEG); URINE BLOOD 1+ (NEG)
--- NOTE | 2017-08-26 10:33 | RADIOLOGY REPORT PS360 ---
CT ABD PELVIS W/O CONTRAST CLINICAL INDICATION: Mid to lower abdominal pain CONSTIPATION ORDERING PHYSICIAN: Ani Montero MD PATIENT AGE: 82 years COMPARISON: 08/20/2017 TECHNIQUE: Axial images obtained with sagittal and coronal reformats. PROCEDURE: Oral Contrast: None IV Contrast: None . FINDINGS: Centrilobular emphysematous changes are present in the lung bases.. Coronary artery calcifications are noted. There is mild thickening of the distal esophagus with a small hiatal hernia. There is moderate distention of the gallbladder. No radio opaque stones. Spleen, pancreas, and adrenal glands are unremarkable. No renal calculi or hydronephrosis. There remains thickening of the junction of the descending and sigmoid colon with stranding of the pericolic fat consistent with diverticulitis. This has had a similar appearance dating back to 05/18/2017. Neoplasm is also a consideration. There is a moderate amount of feces present within the colon proximal to this region. No abscess or free air. No other significant anomalies evident. IMPRESSION: 1. Persistent thickening of the junction of the descending and sigmoid colon with stranding of the pericolic fat. There is a moderate amount retained colonic feces in the colon proximal to this region. A partial obstructing mass with subserosal spread is considered. Sigmoidoscopy may be of further value. Chronic diverticulitis with colonic wall thickening is also a consideration. 2. Distended gallbladder.
--- NOTE | 2017-08-26 10:37 | RADIOLOGY REPORT PS360 ---
CHEST-AP VIEW ONLY HISTORY: Shortness of air, abdominal pain and chest tightness CONSTIPATION ORDERING PHYSICIAN: Ani Montero MD PATIENT AGE: 82 years COMPARISON: 05/08/2017 FINDINGS: Normal heart size. No evidence of CHF. There are emphysematous changes. There remains increased density in the right hilum as previously described which could be related to right hilar mass somewhat more dense than when compared to an older x-ray of 11/05/2016. CT of the chest with contrast suggested for further evaluation. IMPRESSION: Emphysema with right hilar mass
[2017-08-26 11:36] VITALS: BP 138/74
--- NOTE | 2017-08-26 13:23 | RADIOLOGY REPORT PS360 ---
US GALLBLADDER (ABD LTD) HISTORY: Abdominal pain, distended gallbladder distended gb seen on CT scan 08/20/17 ORDERING PHYSICIAN: Ani Montero MD PATIENT AGE: 82 years COMPARISON: None FINDINGS: PANCREAS: Not well delineated due to overlying bowel gas LIVER: No focal liver lesions demonstrated. Homogeneous echogenicity. No intrahepatic biliary ductal dilatation evident. Incidental calcification noted within the liver. No intrahepatic biliary dilatation RIGHT KIDNEY: Unremarkable. Normal size and echogenicity. No hydronephrosis GALLBLADDER: Gallbladder is distended. No obvious gallstones are evident. Gallbladder measures up to 10 x 4 cm. Common bile duct is normal at 6 mm IMPRESSION: Distended gallbladder. No obvious stones or biliary dilatation
== END 2017-08-26 11:39 | disposition home or self-care (01) ==
LOC: ER 08:49
PROVIDERS: Emergency Medicine
DX: K59.00 Constipation, unspecified (principal); R10.84 Generalized abdominal pain; R91.1 Solitary pulmonary nodule; J44.9 Chronic obstructive pulmonary disease, unspecified; Z79.82 Long term (current) use of aspirin
CPT/HCPCS: J2405